=== PATIENT | male | born 1955 | race Caucasian/White ===

== ENCOUNTER 2023-08-17 13:50 | Outpatient (RCR) | payer MEDICARE, OTHER, SELFPAY | END 2023-08-17 23:59 | disposition home or self-care (01) | LOC: RPT 13:50 | PROVIDERS: ATTENDING PHYSICIAN Orthopaedic Surgery; FAMILY PHYSICIAN Internal Medicine | DX: Z47.1 Aftercare following joint replacement surgery (principal); Z96.651 Presence of right artificial knee joint; Z96.652 Presence of left artificial knee joint; Z73.6 Limitation of activities due to disability | CPT/HCPCS: 97010; 97110 ==

== ENCOUNTER 2023-10-04 11:18 | Outpatient (RCR) | payer MEDICARE, OTHER, SELFPAY | END 2023-10-04 23:59 | disposition home or self-care (01) | LOC: RPT 11:18 | PROVIDERS: ATTENDING PHYSICIAN Orthopaedic Surgery; FAMILY PHYSICIAN Internal Medicine | DX: Z47.1 Aftercare following joint replacement surgery (principal); Z73.6 Limitation of activities due to disability; R26.2 Difficulty in walking, not elsewhere classified; M62.81 Muscle weakness (generalized); Z96.653 Presence of artificial knee joint, bilateral | CPT/HCPCS: 97010; 97110; 97112 ==

== ENCOUNTER → 2023-12-16 13:20 | Outpatient (REF) | payer MEDICARE, OTHER, SELFPAY ==
[2023-12-16 13:51] LABS: % Basophils 0.5 % (0-2); % Eosinophils 2.7 % (0-6); % Immature Granulocytes 0.3 % (0-0.5); % Lymphocytes 20.2 % (20.5-51.1); % Monocytes 6.5 % (1.7-9.3); % Neutrophils 69.8 % (42.2-75.2); Absolute Eosinophils 0.2 10^3/uL (0-0.7); Absolute Lymphocytes 1.5 10^3/uL (1.2-3.4); Absolute Monocytes 0.5 10^3/uL (0.1-0.6); Absolute Neutrophils 5.3 10^3/uL (1.4-6.5); Hemoglobin 14.5 g/dL (13.0-18.0); Mean Corp Hgb Conc. 33.7 g/dL (33.0-37.0); Mean Corpuscular Volume 91.9 fL (80.0-94.0); Mean Platelet Volume 9.4 fL (7.4-10.4); Nucleated Red Blood Cells % 0 % (-); Platelet Count 212 10^3/uL (130-400); Red Blood Cell Count 4.68 10^6/uL (4.70-6.10); Red Cell Dist. Width 13.2 % (11.5-14.5); White Blood Cell Count 7.5 10^3/uL (4.8-10.8)
[2023-12-16 14:08] LABS: Urine Albumin Negative (Neg - Trace); Urine Bilirubin Negative (Negative); Urine Character Clear (Clear); Urine Color Yellow; Urine Glucose Negative (Negative); Urine Ketone Negative (Negative); Urine Leukocyte Negative (Negative); Urine Nitrite Negative (Negative); Urine Occult Blood 4+ (Negative); Urine Urobilinogen Negative (Neg - 1+)
[2023-12-16 14:21] LABS: ALT (SGPT) 31 U/L (0-50); AST (SGOT) 27 U/L (17-59); Albumin 4.8 g/dl (3.5-5.0); Alkaline Phosphatase 100 U/L (38-126); Blood Urea Nitrogen 26 mg/dl (9-20); Carbon Dioxide 23 mmol/L (22-30); Chloride 105 mmol/L (98-107); Glucose 97 mg/dl (70-99); HDL Cholesterol 56 mg/dl; LDL Cholesterol, Calculated 81 mg/dl; Potassium 4.6 mmol/L (3.5-5.1); Sodium 141 mmol/L (135-145); Total Cholesterol 174 mg/dl (50-199); Total Protein 7.9 g/dl (6.3-8.2); Triglyceride 188 mg/dl (10-149); Very Low Density Lipoprotein 37 mg/dl (0-30); eGFR > 60.00
[2023-12-16 14:28] LABS: NT-proBNP 108 pg/ml
[2023-12-16 14:32] LABS: Urine Squamous Cell 16-20 /LPF (Few)
[2023-12-16 14:33] LABS: Urine Bacteria Few (Negative)
[2023-12-16 14:40] LABS: Vitamin D, 25-OH*** 26.1 ng/mL (30-80)
[2023-12-16 14:54] LABS: PSA, Total - Screen 0.21 ng/ml (0.0-4.0); TSH Reflex To Free T4 1.34 uIU/ml (0.47-4.68)
[2023-12-16 17:39] LABS: Urine Albumin Negative (Neg - Trace); Urine Bilirubin Negative (Negative); Urine Character Clear (Clear); Urine Color Yellow; Urine Glucose Negative (Negative); Urine Ketone Negative (Negative); Urine Leukocyte Negative (Negative); Urine Nitrite Negative (Negative); Urine Occult Blood 3+ (Negative); Urine Urobilinogen Negative (Neg - 1+)
[2023-12-16 20:07] LABS: Urine Bacteria Few (Negative); Urine Red Blood Cell 16-20 /HPF (0-2); Urine Squamous Cell 16-20 /LPF (Few)
== END ==
LOC: REG 13:20
PROVIDERS: ATTENDING PHYSICIAN Nurse Practitioner Family
DX: R06.09 Other forms of dyspnea (principal); Z68.39 Body mass index [BMI] 39.0-39.9, adult; E78.2 Mixed hyperlipidemia; I10 Essential (primary) hypertension; C43.59 Malignant melanoma of other part of trunk; F41.1 Generalized anxiety disorder; Z12.5 Encounter for screening for malignant neoplasm of prostate; Z12.11 Encounter for screening for malignant neoplasm of colon; E56.9 Vitamin deficiency, unspecified; R31.9 Hematuria, unspecified
CPT/HCPCS: 36415; 71046; 80053; 80061; 81003; 81015; 82306; 83880; 84443; 85025; 87086; 93306; G0103

== ENCOUNTER → 2024-01-13 11:36 | Outpatient (REF) | payer MEDICARE, OTHER, SELFPAY | LOC: HWRAD 11:36 | PROVIDERS: ATTENDING PHYSICIAN Nurse Practitioner Family; FAMILY PHYSICIAN Internal Medicine | DX: R31.9 Hematuria, unspecified (principal) | CPT/HCPCS: 76770 ==

== ENCOUNTER → 2024-02-17 12:24 | Outpatient (REF) | payer MEDICARE, OTHER, SELFPAY | LOC: RAD 12:24 | PROVIDERS: ATTENDING PHYSICIAN Surgery; FAMILY PHYSICIAN Internal Medicine | DX: D49.4 Neoplasm of unspecified behavior of bladder (principal) | CPT/HCPCS: 74178; Q9967 ==

== ENCOUNTER 2024-02-18 16:52 | Inpatient (IN) | payer MEDICARE, OTHER, SELFPAY ==
[2024-02-18] VITALS (8 sets, daily range): BP systolic 98–171; BP diastolic 68–104
--- NOTE | 2024-02-18 13:07 | ED.GENMED ---
History of Present Illness
General
Chief Complaint: Urinary Symptoms
Source: patient
Exam Limitations: none
Time Seen by Provider: 02/18/24 12:48
Travel History
Have you had any contact with someone who has COVID-19?: No
Do you have any symptoms of coronavirus? Fever > 100 degrees, chills, cough, shortness of breath, sore throat, loss of taste or smell, muscle aches, or headache?: No
History of Present Illness
History of Present Illness:
68-year-old male presents in referral from urology. Patient has been having hematuria. He had a catheter placed in the urology office yesterday as well as a CT scan. There is burgundy colored urine in the catheter yesterday tumors were noted in
the bladder. He presents today with inability to urinate through the catheter starting last evening. He notes discomfort and distention to the lower abdomen. He denies a fever. He notes significant pain. He is not anticoagulated. No other
complaints at this time
Past History
Past History
ED Past Medical History: HTN, Hypercholesterolemia and Other (kidney stones, DDD in cervical and lumbar)
ED Past Surgical History: Urological (lithotripsy) and Other (partial colectomy)
Social History
Tobacco: Non-smoker
Alcohol: Occasional
Drug: None
Personal:
Living: with family
Employment: Employed
Family History
Family History: Other (Noncontributory)
Phy Exam
Physical Exam
Physical Exam:
General: Uncomfortable appearing male no acute respiratory distress
HEENT: Normocephalic atraumatic
Heart: Regular rate and rhythm no murmurs
Lungs: Clear no wheeze
Abdomen soft slightly distended to lower abdomen tender no guarding or rebound. Catheter bag without any urine
Extremities: No cyanosis or edema
Course
Orders/Labs/Results
Orders:
Orders
02/18/24 13:04
HYDROmorphone [Dilaudid] 0.5 mg IV NOW STA
02/18/24 13:06
CBI- Treatment PRN
Solution: saline
02/18/24 13:38
Complete Blood Count/With Diff Urgent
Comprehensive Metabolic Panel Urgent
PTT Urgent
Prothrombin Time Urgent
02/18/24 14:16
Ondansetron Injectable [Zofran] 4 mg IV NOW STA
Abnormal Lab Results
02/18/24
13:38
WBC 11.4 H 10^3/uL
(4.8-10.8)
RBC 4.59 L 10^6/uL
(4.70-6.10)
MCH 31.8 H pg
(27.0-31.0)
Absolute Neuts (auto) 9.7 H 10^3/uL
(1.4-6.5)
Neutrophils % 84.6 H %
(42.2-75.2)
Lymphocytes % 10.2 L %
(20.5-51.1)
Carbon Dioxide 18 L mmol/L
(22-30)
Glucose 112 H mg/dl
(70-99)
02/18/24 13:38
02/18/24 13:38
Vital Signs
Initial and Last Documented VS:
Initial Vital Signs
Temp Pulse Resp BP Pulse Ox
97.9 F 108 16 107/79 97
02/18/24 11:44 02/18/24 11:44 02/18/24 11:44 02/18/24 11:44 02/18/24 11:44
Last Documented Vital Signs
Temp Pulse Resp BP Pulse Ox
97.9 F 74 16 115/82 94
02/18/24 11:44 02/18/24 14:00 02/18/24 11:44 02/18/24 13:47 02/18/24 14:00
MDM/Problems Addressed
Differential Diagnosis Includes:
Dysuria abdominal discomfort abdominal distention. Question possible urinary retention secondary to clot versus infectious.
Recent CT scan demonstrated tumors in the bladder.
Discussed with urology prior to entering the patient's room. Urology recommending exchanging catheter for 24 [place] Cabrales for clot retention. Bladder irrigation to be started. Pain medicine ordered.
*Critical Care Note
Total Time (30-74mins, 75-104mins- exclusive of procedures): Not Applicable
Update Note
Update Note:
Three-way catheter placed by nursing and CBI started. Patient still with dark urine. Discussed findings with urology again. Will keep in hospital overnight for CBI and further observation. Urology to consult admit to medicine
ED Attending Note
-
Portions of this chart may have been created with voice recognition software.� Occasional wrong word or��sound alike� substitutions may have occurred due to the inherent limitations of voice recognition software.
Discharge Plan
Departure
Patient Disposition: Admit
Date of Disposition: 02/18/24
Time of Disposition: 15:28
Admit to: Med/Surg
Presentation/result/management discussed w/ accepting MD/DO: Hospitalist
Discharge Problem:
Hematuria
Prescriptions:
No Action
atorvastatin 10 MG tablet
10 mg PO DAILY
loratadine-pseudoephedrine 240 MG/10 MG tablet extended release 24 hr
1 tab PO DAILY
escitalopram oxalate 10 mg Tablet
10 mg PO DAILY
meloxicam
1 tab PO DAILYPRN PRN (Reason: knee pain)
Patient Comments:
pt does not know mg
potassium citrate
1 tab PO TID
oxycodone-acetaminophen [Percocet] 5-325 mg Tablet
1 tab PO Q4HPRN PRN (Reason: pain) Qty: 7 0RF
tamsulosin [Flomax] 0.4 mg Capsule
0.4 mg PO DAILY 7 Days Qty: 7 0RF
diclofenac sodium 75 mg tablet,delayed release (DR/EC)
75 mg PO BID Qty: 10 0RF
Referrals:
Selwyn Arenas DO [Family Provider] -
Interventions
Interventions:
*Risk Screen - Suicide Last Done: 02/18/24 12:22
*General Assessment Last Done: 02/18/24 12:22
*Neglect/Abuse Screening Last Done: 02/18/24 12:22
*ED COVID-19 Vaccine History Last Done: 02/18/24 11:44
ED-Male Genitourinary Assessment Last Done: 02/18/24 12:21
Discharge Date and Time
Print Language: WOLOF
[2024-02-18] MEDS: DILAUDID 0.5 MG IV (13:42)
[2024-02-18 13:48] LABS: % Basophils 0.3 % (0-2); % Eosinophils 0.1 % (0-6); % Immature Granulocytes 0.4 % (0-0.5); % Lymphocytes 10.2 % (20.5-51.1); % Monocytes 4.4 % (1.7-9.3); % Neutrophils 84.6 % (42.2-75.2); Absolute Lymphocytes 1.2 10^3/uL (1.2-3.4); Absolute Monocytes 0.5 10^3/uL (0.1-0.6); Absolute Neutrophils 9.7 10^3/uL (1.4-6.5); Hematocrit 40.8 % (39.0-52.0); Hemoglobin 14.6 g/dL (13.0-18.0); Mean Corp Hgb Conc. 35.8 g/dL (33.0-37.0); Mean Corpuscular Hgb 31.8 pg (27.0-31.0); Mean Corpuscular Volume 88.9 fL (80.0-94.0); Mean Platelet Volume 9.8 fL (7.4-10.4); Nucleated Red Blood Cells % 0 % (-); Platelet Count 192 10^3/uL (130-400); Red Blood Cell Count 4.59 10^6/uL (4.70-6.10); Red Cell Dist. Width 12.6 % (11.5-14.5); White Blood Cell Count 11.4 10^3/uL (4.8-10.8)
[2024-02-18 13:57] LABS: INR 1.03; PT 13.3 Sec (11.4-14.6)
[2024-02-18 13:58] LABS: APTT 27.8 Sec (23.4-35.0)
[2024-02-18] MEDS: ZOFRAN 4 MG IV (14:19)
[2024-02-18 14:23] LABS: ALT (SGPT) 34 U/L (0-50); AST (SGOT) 33 U/L (17-59); Albumin 4.7 g/dl (3.5-5.0); Alkaline Phosphatase 101 U/L (38-126); Blood Urea Nitrogen 20 mg/dl (9-20); Calcium 10.1 mg/dl (8.4-10.2); Carbon Dioxide 18 mmol/L (22-30); Chloride 106 mmol/L (98-107); Glucose 112 mg/dl (70-99); Potassium 4.3 mmol/L (3.5-5.1); Sodium 137 mmol/L (135-145); Total Bilirubin 0.9 mg/dl (0.2-1.3); Total Protein 7.6 g/dl (6.3-8.2); eGFR > 60.00
--- NOTE | 2024-02-18 16:35 | HPS.HSE ---
Addendum entered and electronically signed by PEGGY Wooten 02/18/24 17:33:
N.p.o. after midnight for TURBT in a.m.
Addendum entered and electronically signed by Jimi Moore MD 02/18/24 17:05:
I saw and examined the patient.
The ROLLS BAKER's note was reviewed and I agree with the note.
Comment:
68 male past medical history of hypertension hyperlipidemia renal stone degenerative joint disease, who is presenting with hematuria. Patient had Cabrales catheter placement yesterday. Came in with hematuria and was recommended by his primary
urologist to come into the ER. Patient was started on CBI. Denies abd pain.
General: Comfortable and Conversant; No Pain, Fever or Chills
HEENT: NormoCephalic, Anicteric, Moist mucous membranes, PERRLA, [place] Conjunctivae and No Ptosis
Respiratory: Clear; No Wheezes, Rales or Rhonchi
Cardiac: S1/S2 and Regular Rhythm; No Murmur, Rub, Gallop or Peripheral Edema
GI: Soft, Non Distended, Normal Bowel Sounds and Tender (Suprapubic)
Genito-urinary: No costovertebral tender and Cabrales (Cabrales cath present on admission draining strawberry in color with CBI running)
Musculoskeletal: No Clubbing, No Cyanosis and No Edema
Skin: Warm and Dry; No Rash or Jaundice
Neuro: AO x 3, No Motor Deficits, Nonfocal/grossly intact, Cranial Nerves Intact and No Sensory Deficits; No Slurred Speech, Facial Droop or Tremors
Psych: Calm
Impression
Hematuria
Bladder cancer
BPH
Primary hypertension
Hyperlipidemia
Mood disorder
Constipation
Plan
Started on CBI which needs to be continue
Urology evaluation
on cipro with recent instrumentation
NPO PMN in case requires procedure per Urology
Continue home meds
Hold meloxicom
bowle regimen
DVT prophylaxis SCDs in the setting of hematuria.
I spent a total of 78 minutes with the patient or on the floor. More than 50% of this time involved counseling and coordination of care.
Original Note:
Family Physician
-
Family Physician: Selwyn Arenas
Chief Complaint
-
Clot burden via Cabrales catheter prior hematuria
History of Present Illness
68-year-old male with hematuria and clot retention via Cabrales catheter. He was having hematuria had a catheter placed in urology office yesterday 02/17/2024. He has known bladder tumors and is scheduled for upcoming procedure at the end of the month
for removal. He was unable to urinate through the catheter starting last night. He was noted to have clot burden and suprapubic tenderness while in the ER he was started on CBI. He is on ciprofloxacin 500 mg twice daily since cystoscopy on
02/15/2024. He denies any fever, chills, nausea, vomiting, diarrhea, chest pain, palpitations, shortness breath, cough.
He has past medical history bladder tumors, HTN, HLD, DDD cervical, lumbar, renal calculi, partial colectomy due to perforated bowel, Hx diverticulitis, malignant melanoma with removal 3 areas to back, 9 Mohs procedures follows with [facility]
Medical History
Past Medical History
Past Medical History: Reports Other
Additional Past Medical History:
bladder tumors, HTN, HLD, DDD cervical, lumbar, renal calculi, partial colectomy due to perforated bowel, Hx diverticulitis
Past Surgical History: Reports Other
Additional Past Surgical History:
Spinal fusion 2002 C4-C6
Lithotripsy/renal calculi 2001, 2002
Sinus surgery
Perforated colon, colostomy November 2005, reversal February 2006
Malignant CA removal 2021
Social History
Tobacco: Non-smoker
Alcohol: Occasional
Drug: None
Living: With Family
Employment: Retired
Family History
Family History: Not pertinent
Allergies / Home Medications
Allergies reflects when Allergies were last updated in [employer].
Home Medications with original date entered in [employer]
Allergy/Medication List:
Allergies
Allergy/AdvReac Type Severity Reaction Status Date / Time
No Known Allergies Allergy Verified 02/18/24 11:47
Home Medications
escitalopram oxalate 10 mg tablet 10 mg PO DAILY 01/24/23
acetaminophen 325 mg tablet (Tylenol) 650 mg PO Q4HPRN PRN mild pain 02/18/24
ascorbic acid (vitamin C) 500 mg tablet (Vitamin C) 500 mg PO DAILY 02/18/24
atorvastatin 40 mg tablet 40 mg PO DAILY 02/18/24
cholecalciferol (vitamin D3) 25 mcg (1,000 unit) tablet (Vitamin D3) 25 mcg PO DAILY 02/18/24
ciprofloxacin HCl 500 mg tablet 500 mg PO BID 02/18/24
meloxicam 15 mg tablet 15 mg PO DAILY 02/18/24
potassium citrate 10 mEq (1,080 mg) tablet,extended release 10 meq PO BID 02/18/24
tamsulosin 0.4 mg capsule (Flomax) 0.4 mg PO HS 02/18/24
Review of Systems
-
History Source: Patient
A 12 point ROS was completed and negative except as noted: Yes
Constitutional: Denies Fever or Fatigue
EENT: Denies Sore Throat or Runny Nose
Respiratory: Denies Cough or Trouble Breathing
Cardiac: Denies Chest Pain, Diaphoresis, Palpitations or Syncope
Abdomen/GI: Reports Abdominal Pain (Suprapubic) and Nausea; Denies Vomiting, Diarrhea, Constipated or Bloody Stools
: Reports Cabrales (Hematuria)
Musculoskeletal: Denies Joint Pain or Edema
Skin: Denies Itching or Rash
Neurological: Denies Dizzy, Headache or Weakness
Endocrine: Reports No Symptoms
Hematologic/Lymphatic: Reports No Symptoms
Psych: Reports Calm
Physical Exam
Vital Signs
Vital Signs
Temp Pulse Resp BP Pulse Ox
97.9 F 74 16 115/82 94
02/18/24 11:44 02/18/24 14:00 02/18/24 11:44 02/18/24 13:47 02/18/24 14:00
Physical Exam
General: Comfortable and Conversant; No Pain, Fever or Chills
HEENT: NormoCephalic, Anicteric, Moist mucous membranes, PERRLA, [place] Conjunctivae and No Ptosis
Respiratory: Clear; No Wheezes, Rales or Rhonchi
Cardiac: S1/S2 and Regular Rhythm; No Murmur, Rub, Gallop or Peripheral Edema
Breast: Deferred by me
GI: Soft, Non Distended, Normal Bowel Sounds and Tender (Suprapubic)
Rectal: Deferred by Provider
Genito-urinary: No costovertebral tender and Cabrales (Cabrales cath present on admission draining strawberry in color with CBI running)
Musculoskeletal: No Clubbing, No Cyanosis and No Edema
Skin: Warm and Dry; No Rash or Jaundice
Neuro: AO x 3, No Motor Deficits, Nonfocal/grossly intact, Cranial Nerves Intact and No Sensory Deficits; No Slurred Speech, Facial Droop or Tremors
Psych: Calm
Laboratory Results
-
02/18/24 13:38
02/18/24 13:38
Laboratory Results
PT 13.3 Sec (11.4-14.6) 02/18/24 13:38
INR 1.03 02/18/24 13:38
APTT 27.8 Sec (23.4-35.0) 02/18/24 13:38
Total Bilirubin 0.9 mg/dl (0.2-1.3) 02/18/24 13:38
AST 33 U/L (17-59) 02/18/24 13:38
ALT 34 U/L (0-50) 02/18/24 13:38
Alkaline Phosphatase 101 U/L (38-126) 02/18/24 13:38
Data Reviewed
-
Lab Data: Labs Reviewed by me
Impression/Plan
-
Impression/plan:
Admit to MedSurg
#Acute hematuria with Clot retention post urinary catheter placement
#Known BLADDER TUMORS is due for elective procedure later this month
-Consult Dr. Barrera
-CBI
-Continue Flomax 0.4 mg at bedtime
-Regular diet
-Follow CBC
#Malignant melanoma with removal 3 areas to back, 9 Mohs procedures follows with [facility]
#HTN�benign
#HLD
-Continue atorvastatin 40 mg daily
#DDD cervical lumbar
#Osteoarthritis
-Continue meloxicam
#Hx renal calculi
-Continue potassium citrate
#Partial colectomy 2/2 perforated colon with colostomy November 2005 and reversal February 2006
#Hx diverticulitis
#Anxiety
-Continue Lexapro
DVT prophylaxis
SCDs
Full code
--- NOTE | 2024-02-18 16:56 | W.PN.UPDATE ---
Update Note
Progress Note Update
Newly diagnosed bladder tumors noted on diagnostic flexible cysto in office 02/14 => tentatively scheduled for blue light TURBT in ~2-3 weeks, preop visit in office 02/23.
Noted to have urinary retention w/n 36-48 hrs of cystoscopy in addition to burgundy-colored hematuria w/ clots.
20Fr Cabrales catheter placed in office by me on 02/16 - hand irrigated to light red w/o clot return noted, >700 cc output noted.
Due to persistent and significant hematuria w/o clearing noted this AM, patient directed to ER for 3-way catheter exchange and CBI.
CT Urogram 02/16 reviewed w/ patient => known bladder tumors throughout bladder, Cabrales catheter in place.
- Admit to Medicine
- Continue CBI o/n - wean as tolerated
- NPO@MN in case no improvement noted o/n
- Continue tamsulosin
- CBC in AM
- Urology will assess catheter/drainage in AM
D/w ER.
D/w Hospital Medicine
D/w patient.
--- NOTE | 2024-02-18 17:06 | W.PN.UPDATE ---
Update Note
Progress Note Update
for billing purpose.
--- NOTE | 2024-02-18 18:10 | PTCARENOTE ---
Patient received to room 437-01 from ED with CBI running. Patient in bed with call davalos in reach. Patient oriented to room. Patient verbalizes he ordered dinner tray.
--- NOTE | 2024-02-18 20:00 | PTCARENOTE ---
Pt. admitted through E.D., AAO x 3, vs stable, CBI infusing with punch colored urine, call davalos within reach.
[2024-02-18] MEDS: CIPRO 500 MG PO (20:32)
[2024-02-18] MEDS: SENOKOT-S 1 TABLET PO (20:33)
[2024-02-18] MEDS: UROCIT-K 10 MEQ PO (20:33)
[2024-02-18] MEDS: FLOMAX 0.400000000000000022 MG PO (20:33)
[2024-02-18] MEDS: TYLENOL 650 MG PO (20:34)
[2024-02-19] VITALS (18 sets, daily range): BP systolic 103–155; BP diastolic 57–120
[2024-02-19] MEDS: TYLENOL 650 MG PO (04:01)
--- NOTE | 2024-02-19 04:06 | PTCARENOTE ---
First set of preop wipes done, gown changed.
[2024-02-19 06:17] LABS: % Basophils 0.5 % (0-2); % Eosinophils 1.1 % (0-6); % Immature Granulocytes 0.2 % (0-0.5); % Lymphocytes 17.8 % (20.5-51.1); % Monocytes 7.6 % (1.7-9.3); % Neutrophils 72.8 % (42.2-75.2); Absolute Basophils 0.1 10^3/uL (0-0.2); Absolute Eosinophils 0.1 10^3/uL (0-0.7); Absolute Lymphocytes 1.8 10^3/uL (1.2-3.4); Absolute Monocytes 0.8 10^3/uL (0.1-0.6); Absolute Neutrophils 7.5 10^3/uL (1.4-6.5); Hematocrit 38.8 % (39.0-52.0); Hemoglobin 12.9 g/dL (13.0-18.0); Mean Corp Hgb Conc. 33.2 g/dL (33.0-37.0); Mean Corpuscular Hgb 31.1 pg (27.0-31.0); Mean Corpuscular Volume 93.5 fL (80.0-94.0); Mean Platelet Volume 10.1 fL (7.4-10.4); Nucleated Red Blood Cells % 0 % (-); Platelet Count 163 10^3/uL (130-400); Red Blood Cell Count 4.15 10^6/uL (4.70-6.10); Red Cell Dist. Width 12.5 % (11.5-14.5); White Blood Cell Count 10.3 10^3/uL (4.8-10.8)
[2024-02-19 06:31] LABS: Blood Urea Nitrogen 21 mg/dl (9-20); Calcium 9.3 mg/dl (8.4-10.2); Carbon Dioxide 23 mmol/L (22-30); Chloride 105 mmol/L (98-107); Glucose 96 mg/dl (70-99); Sodium 137 mmol/L (135-145); eGFR > 60.00
--- NOTE | 2024-02-19 07:50 | W.PN.URO.CBU ---
Today's Communication / Plan
-
Maintain NPO
To OR for TURBT
IV Ancef 2g crane ladle person to OR
Plan for CBI post-op w/ observation o/n
Discussed plan of care w/ patient and spouse.
Discussed plan of care w/ RN.
Assessment / Plan
-
Gross hematuria w/ clot retention
Bladder tumors suspicious for UCC
WBC WNL
H/H WNL (slight drift given recent bleeding)
Cr WNL
Given severity of hematuria from urinary retention and post-instrumentation (s/p outpatient diagnostic cysto 02/14), discussed role of urgent TURBT to resect known bladder tumors.
Reviewed likelihood of requiring 2nd look blue light TURBT in 6 weeks to confirm complete resection pending initial pathology.
Plan for intravesical gemcitabine at time of 2nd look procedure given degree of inflammatory changes expected at this time.
Discussed risks, benefits, alternatives, and potential complications of TURBT including but not limited to urosepsis, bleeding, ureteral/bladder injury, need for additional procedures or surgeries.
Discussed at length w/ patient and spouse (Radha) this AM - agreeable to proceed and appreciative of comprehensive care.
Diagnosis
-
Date of Service: February 19, 2024
-
Patient Diagnosis:
Gross hematuria w/ clot retention
Bladder tumors suspicious for UCC
Subjective
-
Denies pain.
Notes mild upper abdominal discomfort and soreness x2-3 weeks.
Urine light red to pink in tubing on low rate CBI.
No clots.
Objective
-
Vital Signs
Temp Pulse Resp BP Pulse Ox
97.8 F 78 16 131/74 97
02/19/24 06:15 02/19/24 06:15 02/19/24 06:15 02/19/24 06:15 02/19/24 06:15
Intake and Output
02/18/24 02/19/24 02/20/24
06:59 06:59 06:59
Intake Total 120 / 120
Output Total 5550 / 5550 3350 / 3350
Balance -5430 / -5430 -3350 / -3350
Intake:
Oral fluids 120 / 120
Output:
Urine, Cabrales 3350 / 3350
True Urine Output from CBI 5550 / 5550
Laboratory Results
02/19/24 04:49
02/19/24 04:49
Physical Exam
-
General - well developed, well nourished, no acute distress
Abdomen - soft, non-tender, no CVAT
Genitalia - normal, 3-way catheter in place
Skin - warm & dry with no rash
Neuro - AOx3, no motor deficits
Extremities - no clubbing, no cyanosis, no edema
Care Review
Data Reviewed
Discussed with: Nursing and Family
CT Scan: Report Pers Reviewed and Image Pers Reviewed
[2024-02-19] MEDS: MIRALAX PO (08:40)
[2024-02-19] MEDS: MOBIC 15 MG PO (08:46)
[2024-02-19] MEDS: CIPRO 500 MG PO ×2 (08:46→20:30)
[2024-02-19] MEDS: VITAMIN C 500 MG PO (08:47)
[2024-02-19] MEDS: UROCIT-K 10 MEQ PO ×2 (08:47→20:30)
[2024-02-19] MEDS: SENOKOT-S 1 TABLET PO ×2 (08:47→20:30)
[2024-02-19] MEDS: VITAMIN D3 (cholecalciferol) 25 MCG PO (08:47)
[2024-02-19] MEDS: LIPITOR 40 MG PO (08:47)
[2024-02-19] MEDS: LEXAPRO 10 MG PO (08:47)
--- NOTE | 2024-02-19 11:34 | PTCARENOTE ---
Report called to OR , patient and transported with hospital staff. CBI running without difficulty, light punch colored. Draining without difficulty.
--- NOTE | 2024-02-19 13:11 | W.IMMPOSTOP ---
Surgical Immed Post Op Note
-
Primary Surgeon: Bruce
Pre-op Diagnosis:
1. Hematuria with clot retention
2. Multifocal papillary bladder tumors consistent with bladder cancer
Post-op Diagnosis: Same
Procedure Performed:
1. Cystoscopy and clot evacuation
2. TURBT (large, >5.5 cm total volume)
3. TURP (partial resection/fulguration of proximal prostatic urethra)
Anesthesia Type: GETA
Specimen / Cultures: Bladder tumors/None
Estimated Blood Loss: 5 cc (150 cc old clot evacuated)
Drains: 22Fr 3-way catheter (30 cc in balloon)
Complications: None
Operative Findings: multifocal papillary bladder tumors throughout vesicoprostatic junction, lateral bladder horton adjacent to prostate, bladder base, and posterior bladder wall - resected/fulgurated w/ loop. Excellent hemostasis in no flow, low
pressure state.
Post-op findings and plan d/w spouse (Radha).
Plan for formal blue light cystoscopy/TURBT in 6 weeks after bladder healing for re-staging.
[2024-02-19] MEDS: OFIRMEV 100 IV (13:49)
[2024-02-19] MEDS: SUBLIMAZE 50 MCG IV (13:56)
[2024-02-19] MEDS: DETROL LA 4 MG PO (14:17)
--- NOTE | 2024-02-19 15:48 | W.PN.HOSP.TC ---
Today's Communication/Plan
-
Continue CBI
Monitor hemoglobin
Assessment / Plan
Assessment / Plan
Impression:
68 years old with past medical history of hypertension, dyslipidemia, renal stone, DJD who presents with gross hematuria. Recent diagnosis of bladder tumor and initiation with hematuria as outpatient, Cabrales catheter placed as outpatient day prior
to admission presents with gross hematuria and clot retention.
Gross hematuria.
Recently diagnosed bladder cancer
BPH.
Primary hypertension
Dyslipidemia
Mood disorder
Plan:
CT urography:
Filling defects in the bladder probably hemorrhagic products. An underlying mass cannot be excluded. Direct visualization recommended. Prior ultrasound examination suggests a mass with associated calcifications posteriorly in the bladder.
Mild right hydroureter ureter secondary to either distal right ureteral stricture or obstruction at the right UVJ. Improved.
Several tiny bladder stones versus more likely a calcified bladder mass.. Progressed. Direct visualization recommended if not previously performed
Bowel containing ventral hernia as described above. Stable.
Gallstones. Stable
Pancreatic fatty infiltration. Stable
Few too small to characterize hypodense left renal lesions likely benign cysts. Small simple right renal cyst.
Diverticulosis. Stable
Moderate fecal material throughout the colon. Progressed
Status post cystoscopy with clot evacuation, TURBT, TURP.
Continue CBI
Monitor hemoglobin, currently stable.
Anticipated Discharge: 24 - 48 hours
Subjective/Interval History
-
Date of Service: February 19, 2024
Objective Data
-
Labs:
Laboratory Results
02/19/24
04:49
WBC 10.3
Hgb 12.9 L
Hct 38.8 L
Plt Count 163
Sodium 137
Potassium 4.0
Chloride 105
Carbon Dioxide 23
BUN 21 H
Creatinine 1.2
Glucose 96
Calcium 9.3
Vital Signs:
Vital Signs
Temp Pulse Resp BP Pulse Ox
98.2 F 78 18 140/68 96
02/19/24 15:30 02/19/24 15:30 02/19/24 15:30 02/19/24 15:30 02/19/24 15:30
I&O
02/18/24 02/19/24 02/20/24
06:59 06:59 06:59
Intake Total 120 / 120 350 / 350
Output Total 5550 / 5550 1250 / 1250
Balance -5430 / -5430 -900 / -900
Physical Exam
-
General: Well Developed and No Apparent Distress
HEENT: Normocephalic, Atraumatic and Moist Mucous Membranes
Respiratory: Clear to Auscultation
Cardiac: Regular Rhythm and S1/S2; Negative Murmur, Rub or Gallop
GI: Soft, Nontender, Nondistended and Normal Bowel Sounds; Negative Organomegaly
Rectal: Deferred by Provider
Genito-urinary: Cabrales (CBI)
Musculoskeletal: No Clubbing, No Cyanosis and No Edema
Skin: Negative Rash
Neuro: Nonfocal/Grossly Intact
[2024-02-19] MEDS: ROXICODONE 5 MG PO ×2 (16:38→21:59)
[2024-02-19] MEDS: FLOMAX 0.400000000000000022 MG PO (21:57)
[2024-02-20 03:30] VITALS: BP 127/72
[2024-02-20 05:52] LABS: % Basophils 0.2 % (0-2); % Eosinophils 0.2 % (0-6); % Immature Granulocytes 0.3 % (0-0.5); % Lymphocytes 13.2 % (20.5-51.1); % Monocytes 7.9 % (1.7-9.3); % Neutrophils 78.2 % (42.2-75.2); Absolute Lymphocytes 1.2 10^3/uL (1.2-3.4); Absolute Monocytes 0.7 10^3/uL (0.1-0.6); Absolute Neutrophils 7.2 10^3/uL (1.4-6.5); Hematocrit 36.2 % (39.0-52.0); Hemoglobin 12.5 g/dL (13.0-18.0); Mean Corp Hgb Conc. 34.5 g/dL (33.0-37.0); Mean Corpuscular Hgb 31.5 pg (27.0-31.0); Mean Corpuscular Volume 91.2 fL (80.0-94.0); Mean Platelet Volume 10.1 fL (7.4-10.4); Nucleated Red Blood Cells % 0 % (-); Platelet Count 175 10^3/uL (130-400); Red Blood Cell Count 3.97 10^6/uL (4.70-6.10); Red Cell Dist. Width 12.4 % (11.5-14.5); White Blood Cell Count 9.2 10^3/uL (4.8-10.8)
[2024-02-20 06:20] LABS: Blood Urea Nitrogen 23 mg/dl (9-20); Calcium 9.3 mg/dl (8.4-10.2); Carbon Dioxide 23 mmol/L (22-30); Chloride 103 mmol/L (98-107); Glucose 137 mg/dl (70-99); Potassium 4.1 mmol/L (3.5-5.1); Sodium 137 mmol/L (135-145); eGFR > 60.00
[2024-02-20 07:48] VITALS: BP 131/77
[2024-02-20] MEDS: LIPITOR 40 MG PO (07:58)
[2024-02-20] MEDS: MOBIC 15 MG PO (07:58)
[2024-02-20] MEDS: UROCIT-K 10 MEQ PO (07:58)
[2024-02-20] MEDS: LEXAPRO 10 MG PO (07:58)
[2024-02-20] MEDS: CIPRO 500 MG PO (07:58)
[2024-02-20] MEDS: VITAMIN D3 (cholecalciferol) 25 MCG PO (07:58)
[2024-02-20] MEDS: VITAMIN C 500 MG PO (07:58)
[2024-02-20] MEDS: SENOKOT-S 1 TABLET PO (07:58)
[2024-02-20] MEDS: MIRALAX 17 GRAMS PO (07:59)
[2024-02-20] MEDS: ROXICODONE 5 MG PO (08:30)
--- NOTE | 2024-02-20 08:46 | W.PN.URO.CBU ---
Today's Communication / Plan
-
D/c Cabrales catheter
TOV this AM
OK to d/c home from urologic perspective
F/U to review pathology will be scheduled in 2 weeks
D/w patient
D/w spouse (Radha)
D/w RN
Assessment / Plan
-
Gross hematuria w/ clot retention
Bladder tumors suspicious for UCC
WBC WNL
H/H WNL (stable post-op)
Cr WNL
02/18: s/p cysto/clot evac/TURBT/TURP
Given severity of hematuria from urinary retention and post-instrumentation (s/p outpatient diagnostic cysto 02/14), discussed role of urgent TURBT to resect known bladder tumors.
Reviewed likelihood of requiring 2nd look blue light TURBT in 6 weeks to confirm complete resection pending initial pathology.
Plan for intravesical gemcitabine at time of 2nd look procedure given degree of inflammatory changes expected at this time.
Discussed risks, benefits, alternatives, and potential complications of TURBT including but not limited to urosepsis, bleeding, ureteral/bladder injury, need for additional procedures or surgeries.
Discussed at length w/ patient and spouse (Radha) this AM - agreeable to proceed and appreciative of comprehensive care.
Diagnosis
-
Date of Service: February 20, 2024
-
Patient Diagnosis:
Post Op Day:
Patient Diagnosis:
Gross hematuria w/ clot retention
Bladder tumors suspicious for UCC
Subjective
-
Feels great.
Tolerating diet.
Headache from PACU resolved.
Urine crystal clear w/o clots on low drip CBI.
Objective
-
Vital Signs
Temp Pulse Resp BP Pulse Ox
97.8 F 78 17 131/77 97
02/20/24 07:48 02/20/24 07:48 06/16/24 07:48 02/20/24 07:48 02/20/24 07:48
Intake and Output
02/19/24 02/20/24 02/21/24
06:59 06:59 06:59
Intake Total 120 / 120 1420 / 1420
Output Total 5550 / 5550 900 / 900 1999
Balance -5430 / -5430 520 / 520 -1999
Intake:
Oral fluids 120 / 120 1070 / 1070
IV fluids (Total) 300 / 300
Normosasl 300 / 300
IV piggybacks 50 / 50
Output:
True Urine Output from CBI 5550 / 5550 900 / 900 1999
Laboratory Results
02/20/24 04:50
02/20/24 04:49
Physical Exam
-
General - well developed, well nourished, no acute distress
Abdomen - soft, non-tender, positive bowel sounds, no CVAT
Genitalia - normal, 22F 3-way w/ clear UOP
Skin - warm & dry with no rash
Neuro - AOx3, no motor deficits
Extremities - no clubbing, no cyanosis, no edema
Care Review
Data Reviewed
Discussed with: Hospitalist, Nursing and Family
--- NOTE | 2024-02-20 08:57 | W.DS.TRANS ---
DC Summary - [employer]
-
Discharge Instructions:
Discharge Diagnosis/Procedures Bladder tumors suspicious for bladder cancer s/p
cysto/clot evacuation/TURBT/TURP
Diet Regular
Activity No strenuous activity
Additional Activity No strenuous activity, heavy lifting, exercise
x7 days per Dr. Barrera (including soccer
exercises/drills!!!)
Driving Restrictions No driving for 24 hours
Bathing Restrictions None
Blood Work not applicable
Others Tests not applicable
Wound Care not applicable
Instructions:
Stand-Alone Forms:
Changes to Home Medications: Yes
Discharge Medications:
DC Medications w/original date entered in [employer] ([employer])
escitalopram oxalate 10 mg tablet 10 mg PO DAILY Depression 01/24/23
acetaminophen 325 mg tablet (Tylenol) 650 mg PO Q4HPRN PRN mild pain 02/18/24
ascorbic acid (vitamin C) 500 mg tablet (Vitamin C) 500 mg PO DAILY Supplement 02/18/24
atorvastatin 40 mg tablet 40 mg PO DAILY High Cholesterol 02/18/24
cholecalciferol (vitamin D3) 25 mcg (1,000 unit) tablet (Vitamin D3) 25 mcg PO DAILY Supplement 02/18/24
ciprofloxacin HCl 500 mg tablet 500 mg PO BID Infection 02/18/24
meloxicam 15 mg tablet 15 mg PO DAILY Pain 02/18/24
potassium citrate 10 mEq (1,080 mg) tablet,extended release 10 meq PO BID Electrolyte Repletion 02/18/24
tamsulosin 0.4 mg capsule (Flomax) 0.4 mg PO HS Urinary Issue 02/18/24
Home Medication Changes
Hold and resume ASA on 02/24/24
Pending Results: No
[2024-02-20] MEDS: PREVNAR 20 0.5 ML IM (09:09)
--- NOTE | 2024-02-20 10:02 | CM ---
Pt discharged prior to CM meeting with him for assessment
Per chart review, no dc needs noted
== END 2024-02-20 09:50 | disposition home or self-care (01) | DRG 670 ==
LOC: 2 SOUTH 16:52
PROVIDERS: Clinical Nurse Specialist Family Health; Physician Assistant; ADMITTING PHYSICIAN Hospitalist; ATTENDING PHYSICIAN Internal Medicine; CONSULT PHYSICIAN Surgery; EMERGENCY PHYSICIAN Emergency Medicine; FAMILY PHYSICIAN Internal Medicine
PROC: 0TBD8ZZ Excision of Urethra, Via Natural or Artificial Opening Endoscopic (ICD-10-PCS; 2024-02-19)
PROC: 0TBB8ZZ Excision of Bladder, Via Natural or Artificial Opening Endoscopic (ICD-10-PCS; 2024-02-19)
PROC: 0TCB8ZZ Extirpation of Matter from Bladder, Via Natural or Artificial Opening Endoscopic (ICD-10-PCS; 2024-02-19)
PROC: 3E0234Z Introduction of Serum, Toxoid and Vaccine into Muscle, Percutaneous Approach (ICD-10-PCS; 2024-02-20)
DX: C67.9 Malignant neoplasm of bladder, unspecified (principal); R31.0 Gross hematuria; N40.1 Benign prostatic hyperplasia with lower urinary tract symptoms; R33.8 Other retention of urine; I10 Essential (primary) hypertension; E78.00 Pure hypercholesterolemia, unspecified; F39 Unspecified mood [affective] disorder; M19.90 Unspecified osteoarthritis, unspecified site; K59.00 Constipation, unspecified; M50.30 Other cervical disc degeneration, unspecified cervical region; F41.9 Anxiety disorder, unspecified; Z87.442 Personal history of urinary calculi; Z85.820 Personal history of malignant melanoma of skin; Z23 Encounter for immunization
CPT/HCPCS: 88307; 51702; 51798; 74178; 80048; 80053; 85025; 85610; 85730; 96374; 96375; 99284; Q9967

== ENCOUNTER → 2024-04-07 11:59 | Outpatient (REF) | payer MEDICARE, OTHER, SELFPAY ==
[2024-04-07 14:43] LABS: Urine Albumin Negative (Neg - Trace); Urine Bilirubin Negative (Negative); Urine Character Clear (Clear); Urine Color Yellow; Urine Glucose Negative (Negative); Urine Ketone Negative (Negative); Urine Leukocyte Trace (Negative); Urine Nitrite Negative (Negative); Urine Occult Blood 4+ (Negative); Urine Urobilinogen Negative (Neg - 1+)
[2024-04-07 14:52] LABS: Urine Bacteria Few (Negative); Urine Red Blood Cell 30-40 /HPF (0-2)
== END ==
LOC: SDSPAT 11:59
PROVIDERS: ATTENDING PHYSICIAN Surgery; FAMILY PHYSICIAN Internal Medicine
DX: C67.9 Malignant neoplasm of bladder, unspecified (principal)
CPT/HCPCS: 36415; 81003; 81015; 93005

== ENCOUNTER 2024-04-14 06:26 | Day surgery (SDC) | payer MEDICARE, OTHER, SELFPAY ==
[2024-04-07 14:08] VITALS: BMI 39.0
[2024-04-14] VITALS (12 sets, daily range): BP systolic 120–135; BP diastolic 74–88; BMI 39.0
[2024-04-14] MEDS: CYSVIEW KIT 100 MG INTRAVES (13:40)
[2024-04-14] MEDS: DILAUDID 0.25 MG IV (16:17)
[2024-04-14] MEDS: TYLENOL 650 MG PO (17:16)
== END 2024-04-14 17:49 | disposition home or self-care (01) ==
LOC: SDS 06:26
PROVIDERS: ATTENDING PHYSICIAN Surgery
DX: C67.8 Malignant neoplasm of overlapping sites of bladder (principal)
CPT/HCPCS: 52601; 52235; C9738; 88307; A9589; C1713

== ENCOUNTER → 2024-04-20 17:45 | Outpatient (REF) | payer MEDICARE, OTHER, SELFPAY ==
[2024-04-20 18:41] LABS: Urine Albumin 1+ (Neg - Trace); Urine Bilirubin Negative (Negative); Urine Character Clear (Clear); Urine Color Yellow; Urine Glucose Negative (Negative); Urine Ketone Negative (Negative); Urine Leukocyte Trace (Negative); Urine Nitrite Negative (Negative); Urine Occult Blood 4+ (Negative); Urine Urobilinogen Negative (Neg - 1+)
[2024-04-20 18:52] LABS: Urine Bacteria Moderate (Negative); Urine Red Blood Cell 80-90 /HPF (0-2); Urine White Cell 0-2 /HPF (0-5)
== END ==
LOC: CLAB 17:45
PROVIDERS: ATTENDING PHYSICIAN Surgery
DX: N39.0 Urinary tract infection, site not specified (principal)
CPT/HCPCS: 81003; 81015; 87086

== ENCOUNTER 2024-06-16 10:08 | Emergency (ER) | payer MEDICARE, OTHER, SELFPAY ==
[2024-06-16 10:26] VITALS: BP 158/86
[2024-06-16] MEDS: MORPHINE SULFATE 4 MG IV (12:43)
[2024-06-16 13:07] LABS: % Basophils 0.5 % (0-2); % Eosinophils 2.7 % (0-6); % Immature Granulocytes 0.5 % (0-0.5); % Lymphocytes 9.4 % (20.5-51.1); % Monocytes 6.4 % (1.7-9.3); % Neutrophils 80.5 % (42.2-75.2); Absolute Basophils 0.1 10^3/uL (0-0.2); Absolute Eosinophils 0.3 10^3/uL (0-0.7); Absolute Immature Granulocytes 0.1 10^3/uL (0-0.05); Absolute Monocytes 0.7 10^3/uL (0.1-0.6); Absolute Neutrophils 8.8 10^3/uL (1.4-6.5); Hematocrit 39.1 % (39.0-52.0); Hemoglobin 13.5 g/dL (13.0-18.0); Mean Corp Hgb Conc. 34.5 g/dL (33.0-37.0); Mean Corpuscular Hgb 31.5 pg (27.0-31.0); Mean Corpuscular Volume 91.1 fL (80.0-94.0); Mean Platelet Volume 9.9 fL (7.4-10.4); Nucleated Red Blood Cells % 0 % (-); Platelet Count 152 10^3/uL (130-400); Red Blood Cell Count 4.29 10^6/uL (4.70-6.10); Red Cell Dist. Width 12.7 % (11.5-14.5); White Blood Cell Count 10.9 10^3/uL (4.8-10.8)
[2024-06-16 13:09] LABS: Urine Albumin 2+ (Neg - Trace); Urine Bilirubin 1+ (Negative); Urine Character Very Cloudy (Clear); Urine Color Amber; Urine Glucose Negative (Negative); Urine Ketone Negative (Negative); Urine Leukocyte 2+ (Negative); Urine Nitrite Positive (Negative); Urine Occult Blood 4+ (Negative); Urine Urobilinogen 2+ (Neg - 1+)
[2024-06-16 13:26] LABS: Urine Bacteria Few (Negative); Urine Red Blood Cell >100 /HPF (0-2); Urine White Cell 16-20 /HPF (0-5)
[2024-06-16 13:52] LABS: Blood Urea Nitrogen 28 mg/dl (9-20); Carbon Dioxide 20 mmol/L (22-30); Chloride 109 mmol/L (98-107); Glucose 98 mg/dl (70-99); Sodium 142 mmol/L (135-145); eGFR 55.43
--- NOTE | 2024-06-16 14:33 | ED.GENMED ---
History of Present Illness
General
Chief Complaint: Male Genito-Urinary Symptoms
Source: patient and spouse
Time Seen by Provider: 06/16/24 11:13
History of Present Illness
History of Present Illness:
68-year-old male who is status post bladder tumor resection on Wednesday. He had this performed at [facility]. Patient did have resection here in the past as well. The patient presents with lower abdominal discomfort. He feels like he
has to have a bowel movement but cannot. He states he is having severe pain both in his penis and at the abdomen. He did notice blood in the urine. He denies fevers or back pain. The pain is somewhat severe.
Past History
Past History
ED Past Medical History: HTN, Hypercholesterolemia and Other (kidney stones, DDD in cervical and lumbar, bladder cancer, diverticulitis, perforated colon)
ED Past Surgical History: Urological (lithotripsy) and Other (partial colectomy)
Social History
Tobacco: Non-smoker
Alcohol: Occasional
Drug: None
Personal:
Living: with family
Employment: Employed
Family History
Family History: Other (Noncontributory)
Phy Exam
Physical Exam
Physical Exam:
CONSTITUTIONAL Patient alert and oriented to person, place and time. Well-appearing. Vital signs reviewed.
HEAD atraumatic, normocephalic.
EYES eyelids normal to inspection, Pupils equally round and reactive to light, Extraocular muscles intact, Conjunctiva normal, Sclera normal.
NECK normal range of motion, Trachea midline, no jugular venous distention.
RESPIRATORY CHEST No respiratory distress noted, Chest expansion equal, Bilateral breath sounds clear.
CARDIOVASCULAR regular rate and rhythm, Heart sounds normal.
ABDOMEN moderate to severe lower abdominal tenderness with moderate distention. There is a hernia in the midline just below the umbilicus that is reducible on exam.
BACK normal inspection, no obvious deformities
UPPER EXTREMITY range of motion normal, Motor strength normal, no cyanosis, no edema.
LOWER EXTREMITY range of motion normal, Motor strength normal, no cyanosis, no edema.
NEURO Speech normal, No focal motor deficits, [place] coma scale 15, Memory normal, Cranial Nerves intact to screening exam.
SKIN skin warm, dry, and normal in color.
PSYCHIATRIC patient oriented to person place and time, Normal affect.
Course
Orders/Labs/Results
Orders:
Orders
06/16/24 12:17
Lidocaine 2% [Lidocaine Uro-Jet 2%] 2 syringe .ROUTE .STK-MED ONE
06/16/24 12:38
CT Abd/Pel (IV only)-DH only Urgent
Comment:
Reason For Exam: lower abd pain, post-op bladder tumor resection
Morphine Sulfate 4 mg IV NOW STA
06/16/24 12:42
Basic Metabolic Panel Urgent
Complete Blood Count/With Diff Urgent
Urinalysis Reflex To Culture Urgent
Date Specimen was Collected: 06/16/24
Time Specimen was Collected: 12:39
Urine Microscopic Reflex Cult Urgent
Urine Culture Urgent
VIVEK Source: U
Specimen Description:
Date Specimen was Collected: 06/16/24
Time Specimen was Collected: 12:39
06/16/24 15:05
LevoFLOXacin [Levaquin] 500 mg PO NOW STA
Abnormal Lab Results
06/16/24
12:42
WBC 10.9 H 10^3/uL
(4.8-10.8)
RBC 4.29 L 10^6/uL
(4.70-6.10)
MCH 31.5 H pg
(27.0-31.0)
Abs Immat Gran (auto) 0.1 H 10^3/uL
(0-0.05)
Absolute Neuts (auto) 8.8 H 10^3/uL
(1.4-6.5)
Absolute Lymphs (auto) 1.0 L 10^3/uL
(1.2-3.4)
Absolute Monos (auto) 0.7 H 10^3/uL
(0.1-0.6)
Neutrophils % 80.5 H %
(42.2-75.2)
Lymphocytes % 9.4 L %
(20.5-51.1)
Chloride 109 H mmol/L
(98-107)
Carbon Dioxide 20 L mmol/L
(22-30)
BUN 28 H mg/dl
(9-20)
Creatinine 1.4 H mg/dL
(0.7-1.3)
Ur Occult Blood Reflex 4+ A
(Negative)
Urine Nitrite (Reflex) Positive A
(Negative)
Urine Bilirubin 1+ A
(Negative)
Urine Urobilinogen 2+ A
(Neg - 1+)
Leukocyte Esterase Rfl 2+ A
(Negative)
Urine RBC >100 A /HPF
(0-2)
Urine WBC (Reflex) 16-20 A /HPF
(0-5)
Urine Bacteria (Reflex) Few A
(Negative)
Urine Albumin (Reflex) 2+ A
(Neg - Trace)
06/16/24 12:42
06/16/24 12:42
Vital Signs
Initial and Last Documented VS:
Initial Vital Signs
Temp Pulse Resp BP Pulse Ox
97.9 F 102 18 158/86 94
06/16/24 10:26 06/16/24 10:26 06/16/24 10:26 06/16/24 10:26 06/16/24 10:26
Last Documented Vital Signs
Temp Pulse Resp BP Pulse Ox
97.9 F 102 18 158/86 94
06/16/24 10:26 06/16/24 10:26 06/16/24 10:26 06/16/24 10:26 06/16/24 10:26
MDM/Problems Addressed
MDM/Problems Addressed:
Clotted Cabrales catheter, urinary retention
*Radiology
Radiology exam reviewed: preliminary read by ED provider (No free air) and radiology read reviewed
*Pulse Oximetry
Patient hypoxic: no
*Critical Care Note
Total Time (30-74mins, 75-104mins- exclusive of procedures): Not Applicable
Data Reviewed
Source: patient and family
Patient Management
Escalation/DeEscalation of care consider admission/obs:
CT noted. Given nitrite in the urine, switch to Levaquin for 1 week. The patient has been on Bactrim but was to stop it tomorrow. He was to have his Cabrales catheter removed tomorrow but likely could benefit from leaving it at least for 48 more
hours. Will discuss with his urologist. I do think he is stable for outpatient follow-up. Catheter was changed with a larger catheter
ED Attending Note
-
Portions of this chart may have been created with voice recognition software.� Occasional wrong word or��sound alike� substitutions may have occurred due to the inherent limitations of voice recognition software.
Discharge Plan
Departure
Patient Disposition: Home (Routine Discharge)
Date of Disposition: 06/16/24
Time of Disposition: 15:11
Patient with high blood pressure during this ER visit?: Yes
Discharge Problem:
Hematuria, Acute urinary retention
Instructions: How to Care for Your Cabrales Catheter, Male, Blood in the Urine (Hematuria), Adult (DC), BLOOD PRESSURE
Prescriptions:
New
levofloxacin 500 mg tablet
500 mg PO DAILY 7 Days Qty: 7 0RF
No Action
escitalopram oxalate 10 mg Tablet
10 mg PO DAILY
atorvastatin 40 mg Tablet
40 mg PO DAILY
acetaminophen [Tylenol] 325 mg Tablet
650 mg PO Q4HPRN PRN (Reason: mild pain)
meloxicam 15 mg Tablet
15 mg PO DAILY
ascorbic acid (vitamin C) [Vitamin C] 500 mg Tablet
500 mg PO DAILY
potassium citrate 10 mEq (1,080 mg) Tablet Extended Release
10 meq PO BID
cholecalciferol (vitamin D3) [Vitamin D3] 25 mcg (1,000 unit) Tablet
25 mcg PO DAILY
tamsulosin [Flomax] 0.4 mg capsule
0.4 mg PO HS
loratadine [Allerclear] 10 mg Tablet
1 mg PO DAILY
aspirin 81 mg Capsule
81 mg PO DAILY
Referrals:
Selwyn Arenas DO [Family Provider] -
Activity Restrictions/Additional Instructions:
Please see your surgeon and follow-up in the next 3 to 5 days. Return immediately for fevers, vomiting, abdominal pain, back pain or any other concerns.
Interventions
Interventions:
*Risk Screen - Suicide Last Done: 06/16/24 10:26
*General Assessment Last Done: 06/16/24 10:26
*Neglect/Abuse Screening Last Done: 06/16/24 10:26
YI-Bltzuk-Wuketfpspx Assessment Last Done: 06/16/24 13:05
ED-Male Genitourinary Assessment Last Done: 06/16/24 13:05
Discharge Date and Time
Print Language: KHMER
[2024-06-16 15:05] VITALS: BP 146/78
[2024-06-16] MEDS: LEVAQUIN 500 MG PO (15:12)
== END 2024-06-16 15:54 | disposition home or self-care (01) ==
LOC: EMR 10:08
PROVIDERS: EMERGENCY PHYSICIAN Emergency Medicine; FAMILY PHYSICIAN Internal Medicine
DX: T83.098A Other mechanical complication of other urinary catheter, initial encounter (principal); R33.9 Retention of urine, unspecified; X58.XXXA Exposure to other specified factors, initial encounter; R10.30 Lower abdominal pain, unspecified; E78.00 Pure hypercholesterolemia, unspecified; I10 Essential (primary) hypertension; Z85.51 Personal history of malignant neoplasm of bladder; Z87.442 Personal history of urinary calculi
CPT/HCPCS: 99284; 51702; 96374; 74177; 80048; 81003; 81015; 85025; 87086; Q9967

== ENCOUNTER 2025-03-22 14:30 | Inpatient (IN) | payer MEDICARE, OTHER, SELFPAY ==
[2025-03-22] VITALS (44 sets, daily range): BP systolic 84–140; BP diastolic 49–107; BMI 38.9
--- NOTE | 2025-03-22 11:55 | ED.GENMED ---
History of Present Illness
<PEGGY Nick - Last Filed: 03/22/25 14:26>
General
Chief Complaint: Abdominal Pain
Source: patient
Exam Limitations: none
Time Seen by Provider: 03/22/25 11:23
Nursing documentation reviewed up to this point in time: agreed with
History of Present Illness
History of Present Illness:
Patient is a 69-year-old male with past medical history of bladder cancer and required intra bladder chemo; perforated diverticulitis presents to the ER for evaluation. Patient reports for the past 48-72 hours he has had intense abdominal pain. It
started in the back and now is in his right mid abdomen. He does have dry heaves. He denies any chills. He last bowel movement was 2 nights ago. He denies any urinary frequency urgency. He has been followed for his bladder cancer at [place]. He
has not multiple bladder surgeries. His last bladder surgery was in the spring.
Past History
<PEGGY Nick - Last Filed: 03/22/25 14:26>
Past History
ED Past Medical History: HTN, Hypercholesterolemia and Other (kidney stones, DDD in cervical and lumbar, bladder cancer, diverticulitis, perforated colon)
ED Past Surgical History: Urological (lithotripsy) and Other (partial colectomy)
Social History
Tobacco: Non-smoker
Alcohol: Occasional
Drug: None
Personal:
Living: with family
Employment: Employed
Family History
Family History: Other (Noncontributory)
Phy Exam
<PEGGY Nick - Last Filed: 03/22/25 14:26>
General Physical Exam
General Presentation: mild distress
General age: appears stated age
General Skin: warm and dry
General Habitus: normal
General Mental: alert
Cardiovascular Exam
Cardiovascular Exam: tachycardia
Pulmonary Exam
Pulmonary Exam: lungs clear and no respiratory distress
Gastrointestinal Exam
Gastrointestinal Exam: soft and other (tender throughout abdomen worse on the right )
Neurological Exam
Neurological Exam: alert and oriented x3
Musculoskeletal Exam
Musculoskeletal Exam: full ROM
Skin Exam
Skin Exam: normal color and warm/dry
Psychiatric Exam
Psychiatric Exam: normal mood/affect
Course
<PEGGY Nick - Last Filed: 03/22/25 14:26>
Orders/Labs/Results
Orders:
Orders
03/22/25 10:45
Electrocardiogram (*1) Urgent
Reason for Study: Tachycardia
EKG- Treatment ONCE
03/22/25 11:46
CMP [Comprehensive Metabolic Panel] Urgent
Complete Blood Count/With Diff Urgent
Troponin I Urgent
03/22/25 12:05
0.9% Sodium Chloride 1000 ml [Nss] 1,000 ml IV BOLUS
03/22/25 12:06
CT Abd/pelvis W Iv Cont Urgent
Comment:
Reason For Exam: right sided abd pain
03/22/25 12:07
HYDROmorphone [Dilaudid] 1 mg IV NOW STA
03/22/25 12:09
HYDROmorphone [Dilaudid] 1 mg .ROUTE .STK-MED ONE
03/22/25 12:33
Add On- LAB Urgent
Tests Added?: lactic acid
03/22/25 12:57
Lactic Acid Routine
03/22/25 13:33
Diltiazem 125 mg/125 ml Nss [Cardizem] 125 mg in 125 ml IV NOW
Initial dose in mg/hr, then titrate:: 5
Titrate to keep:: Heart rate 80-100 bpm
Titrate by mg/hr:: 5 mg/hr
Frequency of titrations (minutes):: 15
Maximum dose in mg/hr:: 15
Diltiazem HCl [Cardizem] 5 mg IV NOW STA
Piperacillin/Tazo 4.5 Gram [Zosyn] 4.5 gram in 100 ml IV NOW
03/22/25 13:54
UA Reflex to Culture [Urinalysis Reflex To Culture] Urgent
Date Specimen was Collected: 03/22/25
Time Specimen was Collected: 12:10
Urine Microscopic Reflex Cult Urgent
03/22/25 14:06
Admit/Transfer Patient As Directed
Co-Sign Provider:
Level of Care: Inpatient admission
Assign to:: IMU- Intermediate Care
Physician / Group: Ratnay
Diagnosis: Sepsis, Diverticulitis, Atrial Flutter
Reason for Hospitalization: IVFs, IV abx,
Expected length of stay greater than two midnights?: Yes
ELOS- Estimated Length of Stay in days: 3
I certify the patient meets the requirements for IP care: Yes
PRN Pain Medication Management As Directed
May give lesser potent ordered pain med per pt: Yes
preference::
Protocol:: Medication orders for pain may be administered in a
manner that supports deferring to patient preference
when the pt is:
- Requesting an ordered lesser potent pain medication.
Least to most potent pain medications are defined
as: acetaminophen < NSAID < tramadol < opioids
(morphine, oxycodone, hydromorphone).
- Requesting a lesser dose of the same medication IF
ORDERED.
- Requesting a less intrusive route of administration
if both routes are prescribed by the provider (PO <
IV).
03/22/25 14:08
Code Status As Directed
Resuscitation Status: Full Code
03/22/25 14:18
0.9% Sodium Chloride 1000 ml [Nss] 1,000 ml IV BOLUS
03/22/25 14:20
Add On- LAB Urgent
Tests Added?: CRP
Calprotectin, Fecal [S] Routine
CDIFF [C difficile Antigen & Toxins] Routine
VIVEK Source: Feces/Stool
Specimen Description:
Stool Culture Routine
VIVEK Source: Feces/Stool
Specimen Description:
03/23/25 06:00
CRP [C-Reactive Protein] IN AM
03/24/25 06:00
CRP [C-Reactive Protein] IN AM
03/25/25 06:00
CRP [C-Reactive Protein] IN AM
Abnormal Lab Results
03/22/25 03/22/25
11:46 13:54
WBC 14.9 H 10^3/uL
(4.8-10.8)
RBC 4.65 L 10^6/uL
(4.70-6.10)
MCH 31.6 H pg
(27.0-31.0)
Abs Immat Gran (auto) 0.1 H 10^3/uL
(0-0.05)
Absolute Neuts (auto) 12.2 H 10^3/uL
(1.4-6.5)
Absolute Monos (auto) 1.1 H 10^3/uL
(0.1-0.6)
Neutrophils % 81.9 H %
(42.2-75.2)
Lymphocytes % 9.5 L %
(20.5-51.1)
Chloride 109 H mmol/L
(98-107)
Carbon Dioxide 21 L mmol/L
(22-30)
BUN 22 H mg/dl
(9-20)
Glucose 128 H mg/dl
(70-99)
Total Bilirubin 1.5 H mg/dl
(0.2-1.3)
Ur Occult Blood Reflex 4+ A
(Negative)
Urine RBC 50-60 A /HPF
(0-2)
Urine Bacteria (Reflex) Few A
(Negative)
Urine Albumin (Reflex) 2+ A
(Neg - Trace)
03/22/25 11:46
03/22/25 11:46
Vital Signs
Initial and Last Documented VS:
Initial Vital Signs
Temp Pulse Resp BP Pulse Ox
97.6 F 148 18 133/89 97
03/22/25 10:41 03/22/25 10:41 03/22/25 10:41 03/22/25 10:41 03/22/25 10:41
Last Documented Vital Signs
Temp Pulse Resp BP Pulse Ox
97.6 F 145 18 140/83 94
03/22/25 10:41 03/22/25 13:49 03/22/25 10:41 03/22/25 13:49 03/22/25 13:22
Flour Mixer Helper consulted with Physician
Flour Mixer Helper consulted with physician?: Yes (Sarahi )
<Juan Manuel Mcclain, DO - Last Filed: 03/22/25 13:43>
Orders/Labs/Results
Orders:
Orders
03/22/25 10:45
Electrocardiogram (*1) Urgent
Reason for Study: Tachycardia
EKG- Treatment ONCE
03/22/25 11:46
CMP [Comprehensive Metabolic Panel] Urgent
Complete Blood Count/With Diff Urgent
Troponin I Urgent
03/22/25 12:05
0.9% Sodium Chloride 1000 ml [Nss] 1,000 ml IV BOLUS
03/22/25 12:06
CT Abd/pelvis W Iv Cont Urgent
Comment:
Reason For Exam: right sided abd pain
03/22/25 12:07
HYDROmorphone [Dilaudid] 1 mg IV NOW STA
03/22/25 12:09
HYDROmorphone [Dilaudid] 1 mg .ROUTE .STK-MED ONE
03/22/25 12:33
Add On- LAB Urgent
Tests Added?: lactic acid
03/22/25 12:57
Lactic Acid Routine
03/22/25 13:33
Diltiazem 125 mg/125 ml Nss [Cardizem] 125 mg in 125 ml IV NOW
Initial dose in mg/hr, then titrate:: 5
Titrate to keep:: Heart rate 80-100 bpm
Titrate by mg/hr:: 5 mg/hr
Frequency of titrations (minutes):: 15
Maximum dose in mg/hr:: 15
Diltiazem HCl [Cardizem] 5 mg IV NOW STA
Piperacillin/Tazo 4.5 Gram [Zosyn] 4.5 gram in 100 ml IV NOW
03/22/25 13:54
UA Reflex to Culture [Urinalysis Reflex To Culture] Urgent
Date Specimen was Collected: 03/22/25
Time Specimen was Collected: 12:10
Urine Microscopic Reflex Cult Urgent
03/22/25 14:06
Admit/Transfer Patient As Directed
Co-Sign Provider:
Level of Care: Inpatient admission
Assign to:: IMU- Intermediate Care
Physician / Group: Htay
Diagnosis: Sepsis, Diverticulitis, Atrial Flutter
Reason for Hospitalization: IVFs, IV abx,
Expected length of stay greater than two midnights?: Yes
ELOS- Estimated Length of Stay in days: 3
I certify the patient meets the requirements for IP care: Yes
PRN Pain Medication Management As Directed
May give lesser potent ordered pain med per pt: Yes
preference::
Protocol:: Medication orders for pain may be administered in a
manner that supports deferring to patient preference
when the pt is:
- Requesting an ordered lesser potent pain medication.
Least to most potent pain medications are defined
as: acetaminophen < NSAID < tramadol < opioids
(morphine, oxycodone, hydromorphone).
- Requesting a lesser dose of the same medication IF
ORDERED.
- Requesting a less intrusive route of administration
if both routes are prescribed by the provider (PO <
IV).
03/22/25 14:08
Code Status As Directed
Resuscitation Status: Full Code
03/22/25 14:18
0.9% Sodium Chloride 1000 ml [Nss] 1,000 ml IV BOLUS
03/22/25 14:20
Add On- LAB Urgent
Tests Added?: CRP
Calprotectin, Fecal [S] Routine
CDIFF [C difficile Antigen & Toxins] Routine
VIVEK Source: Feces/Stool
Specimen Description:
Stool Culture Routine
VIVEK Source: Feces/Stool
Specimen Description:
03/23/25 06:00
CRP [C-Reactive Protein] IN AM
03/24/25 06:00
CRP [C-Reactive Protein] IN AM
03/25/25 06:00
CRP [C-Reactive Protein] IN AM
Abnormal Lab Results
03/22/25 03/22/25
11:46 13:54
WBC 14.9 H 10^3/uL
(4.8-10.8)
RBC 4.65 L 10^6/uL
(4.70-6.10)
MCH 31.6 H pg
(27.0-31.0)
Abs Immat Gran (auto) 0.1 H 10^3/uL
(0-0.05)
Absolute Neuts (auto) 12.2 H 10^3/uL
(1.4-6.5)
Absolute Monos (auto) 1.1 H 10^3/uL
(0.1-0.6)
Neutrophils % 81.9 H %
(42.2-75.2)
Lymphocytes % 9.5 L %
(20.5-51.1)
Chloride 109 H mmol/L
(98-107)
Carbon Dioxide 21 L mmol/L
(22-30)
BUN 22 H mg/dl
(9-20)
Glucose 128 H mg/dl
(70-99)
Total Bilirubin 1.5 H mg/dl
(0.2-1.3)
Ur Occult Blood Reflex 4+ A
(Negative)
Urine RBC 50-60 A /HPF
(0-2)
Urine Bacteria (Reflex) Few A
(Negative)
Urine Albumin (Reflex) 2+ A
(Neg - Trace)
03/22/25 11:46
03/22/25 11:46
Vital Signs
Initial and Last Documented VS:
Initial Vital Signs
Temp Pulse Resp BP Pulse Ox
97.6 F 148 18 133/89 97
03/22/25 10:41 03/22/25 10:41 03/22/25 10:41 03/22/25 10:41 03/22/25 10:41
Last Documented Vital Signs
Temp Pulse Resp BP Pulse Ox
97.6 F 145 18 140/83 94
03/22/25 10:41 03/22/25 13:49 03/22/25 10:41 03/22/25 13:49 03/22/25 13:22
<PEGGY Nick - Last Filed: 03/22/25 14:26>
MDM/Problems Addressed
Differential Diagnosis Includes:
Not limited to diverticulitis perforation rapid A-fib, a flutter, dehydration
MDM/Problems Addressed:
As documented patient is a 69-year-old male with testicle history of bladder cancer presents for abdominal pain for the past several days. Patient is very tender throughout. He denies any fevers and is afebrile here with elevated white count of
14.9. Patient presented tachycardic with a heart rate in the 140s likely a flutter. Patient was initially treated for pain and given a fluid bolus however heart rate remained persistently in the 140s. Patient was eval by ED physician and Cardizem
drip was ordered. CAT scan shows findings can suspicious for diverticulitis with no intestinal obstruction or free air. IV antibiotics ordered. Patient was admitted to the hospitalist by ED physician IV antibiotics and Cardizem ordered
<PEGGY Nick - Last Filed: 03/22/25 14:26>
*Radiology
Radiology exam reviewed: radiology read reviewed
*Pulse Oximetry
SaO2: 95
Oxygen Mode of Delivery: Room air
Patient hypoxic: no
*EKG
Interpreted by ED Provider?: Yes
Heart Rate: 148
Rate: normal
Rhythm: sinus tachycardia
Ischemia: non-specific ST changes
<Juan Manuel Mcclain DO - Last Filed: 03/22/25 13:43>
*Critical Care Note
Total Time (30-74mins, 75-104mins- exclusive of procedures): 32
comment:
Critical care statement: A total of 32 minutes of critical care time was provided for this patient. This includes management of unstable vital signs, evaluation of the patient at bedside, reviewing the patient's pertinent medical records, discussion
with consultants, review of old EKGs and review of pertinent medical records. This time with separate from time utilized to perform the aforementioned documented procedures
ED Attending Note
<PEGGY Nick - Last Filed: 03/22/25 14:26>
-
Portions of this chart may have been created with voice recognition software.� Occasional wrong word or��sound alike� substitutions may have occurred due to the inherent limitations of voice recognition software.
<Juan Manuel Mcclain DO - Last Filed: 03/22/25 13:43>
ED Attending Note
Patient seen and examined by attending physician: Yes
ED Attending Note:
I reviewed and agree with patient treatment plan by PEGGY Johnson. My exam revealed 69-year-old male with ventral hernia, epigastric tenderness, tachycardia with regular rhythm. Patient has a flutter, rapid and diverticulitis. Diltiazem
drip and Zosyn ordered.
Discharge Plan
Departure
Patient Disposition: Admit
Date of Disposition: 03/22/25
Time of Disposition: 13:34
Admit to: IMU
Presentation/result/management discussed w/ accepting MD/DO: Hospitalist
Patient with high blood pressure during this ER visit?: Yes
Condition: Fair
Discharge Problem:
Atrial flutter with rapid ventricular response, Diverticulitis
Prescriptions:
No Action
escitalopram oxalate 10 mg Tablet
10 mg PO DAILY
atorvastatin 40 mg Tablet
40 mg PO DAILY
acetaminophen [Tylenol] 325 mg Tablet
650 mg PO Q4HPRN PRN (Reason: mild pain)
ascorbic acid (vitamin C) [Vitamin C] 500 mg Tablet
500 mg PO DAILY
potassium citrate 10 mEq (1,080 mg) Tablet Extended Release
10 meq PO TID
cholecalciferol (vitamin D3) [Vitamin D3] 25 mcg (1,000 unit) Tablet
25 mcg PO DAILY
loratadine [Allerclear] 10 mg Tablet
10 mg PO DAILY
aspirin 81 mg Tablet,Delayed Release (Dr/Ec)
81 mg PO DAILY
Referrals:
Selwyn Arenas DO [Family Provider, Internal Medicine]
Interventions
Interventions:
*Risk Screen - Suicide Last Done: 03/22/25 10:47
*General Assessment Last Done: 03/22/25 11:27
*Neglect/Abuse Screening Last Done: 03/22/25 10:47
*ED- Fall Risk Assessment Last Done: 03/22/25 11:27
*ED COVID-19 Vaccine History Last Done: 03/22/25 11:27
AP-Pcfzvb-Ntsmauhvbt Assessment Last Done: 03/22/25 11:27
Discharge Date and Time
Print Language: SLOVAK
[2025-03-22] MEDS: DILAUDID 1 MG IV (12:11)
[2025-03-22] MEDS: NSS 1000 IV ×3 (12:11→21:21)
[2025-03-22 12:14] LABS: Hematocrit 43.1 % (39.0-52.0); Hemoglobin 14.7 g/dL (13.0-18.0); Mean Corp Hgb Conc. 34.1 g/dL (33.0-37.0); Mean Corpuscular Volume 92.7 fL (80.0-94.0); Nucleated Red Blood Cells % 0 % (-); Platelet Count 204 10^3/uL (130-400); Red Cell Dist. Width 13.4 % (11.5-14.5)
[2025-03-22 12:22] LABS: ALT (SGPT) 23 U/L (0-50); AST (SGOT) 20 U/L (17-59); Albumin 4.6 g/dl (3.5-5.0); Alkaline Phosphatase 79 U/L (38-126); Blood Urea Nitrogen 22 mg/dl (9-20); Calcium 9.7 mg/dl (8.4-10.2); Carbon Dioxide 21 mmol/L (22-30); Chloride 109 mmol/L (98-107); Estimated Creatinine Clearance 79 ml/min; Glucose 128 mg/dl (70-99); Potassium 4.4 mmol/L (3.5-5.1); Sodium 138 mmol/L (135-145); Total Protein 7.8 g/dl (6.3-8.2); eGFR > 60.00
[2025-03-22 12:33] LABS: Troponin I < 0.012 ng/ml
--- NOTE | 2025-03-22 13:43 | HPS.HSE ---
Family Physician
-
Family Physician: Selwyn Arenas
Chief Complaint
-
Abdominal Pain
History of Present Illness
Patient is a 69 y/o male past medical history of hypertension, hyperlipidemia, anxiety, bladder cancer and perforated diverticulitis requiring colostomy in 2005 who presents with abdominal pain. Patient reports onset of pain about 72 hours ago.
Pain was mostly in the periumbilical region initially but now has shifted more to the right upper quadrant area. He reports slightly constipation with last bowel movement about 2 days ago. He reports nausea, vomiting and dry heaves. He denies
fevers, sweats or chills. He recently completed a coarse of antibiotics for a urinary tract infection. He reports no episodes of diverticulitis since his surgery in 2005.
Medical History
Past Medical History
Past Medical History: Reports Other
Additional Past Medical History:
Essential Hypertension
Hyperlipidemia
Generalized Anxiety Disorder
Cervical/Lumbar Degenerative Disc Disease
Diverticulitis
Nephrolithiasis
BPH
Bladder Cancer s/p TURBT and Intra-Vesicular Chemotherapy
Past Surgical History: Reports Other
Additional Past Surgical History:
Cervical Spine Fusion
Lithotripsy for Renal Calculi
Colon Resection for perforated diverticulitis with colostomy and subseqeunt reversal
TURBT
Bilateral Total Knee Replacements
Social History
Tobacco: Non-smoker
Alcohol: Occasional
Family History
Family History: Not pertinent
Allergies / Home Medications
Allergies reflects when Allergies were last updated in [employer]
Home Medications with original date entered in [employer]
Allergy/Medication List:
Allergies
Allergy/AdvReac Type Severity Reaction Status Date / Time
No Known Allergies Allergy Verified 04/14/24 12:45
Home Medications
escitalopram oxalate 10 mg tablet 10 mg PO DAILY Depression 01/24/23
acetaminophen 325 mg tablet (Tylenol) 650 mg PO Q4HPRN PRN mild pain 02/18/24
ascorbic acid (vitamin C) 500 mg tablet (Vitamin C) 500 mg PO DAILY Supplement 02/18/24
atorvastatin 40 mg tablet 40 mg PO DAILY High Cholesterol 02/18/24
cholecalciferol (vitamin D3) 25 mcg (1,000 unit) tablet (Vitamin D3) 25 mcg PO DAILY Supplement 02/18/24
potassium citrate 10 mEq (1,080 mg) tablet,extended release 10 meq PO TID Electrolyte Repletion 02/18/24
loratadine 10 mg tablet (Allerclear) 10 mg PO DAILY 04/10/24
aspirin 81 mg tablet,delayed release 81 mg PO DAILY 03/22/25
Review of Systems
-
A 12 point ROS was completed and negative except as noted: Yes
Constitutional: Denies Fever or Chills
Respiratory: Denies Cough or Trouble Breathing
Cardiac: Denies Chest Pain or Palpitations
Abdomen/GI: Reports See HPI
Physical Exam
Vital Signs
Vital Signs
Temp Pulse Resp BP Pulse Ox
97.6 F 144 18 112/63 94
03/22/25 10:41 03/22/25 13:22 03/22/25 10:41 03/22/25 13:22 03/22/25 13:22
Physical Exam
General: Comfortable and Conversant
HEENT: Anicteric and Moist mucous membranes
Respiratory: Clear and Non Labored Respirations
Cardiac: S1/S2, Regular Rhythm and Tachycardia
GI: Soft, Tender (Significant tenderness in Right upper quadrant with voluntary guarding) and Other (Positive supra-umbilical hernia which is nontender)
Rectal: Deferred by Provider
Genito-urinary: Other (Slight dark urine at bedside)
Musculoskeletal: No Clubbing, No Cyanosis and No Edema
Skin: Warm and Dry
Neuro: Awake, Alert and Oriented
Psych: Calm
Laboratory Results
-
03/22/25 11:46
03/22/25 11:46
Laboratory Results
Total Bilirubin 1.5 mg/dl (0.2-1.3) H 03/22/25 11:46
AST 20 U/L (17-59) 03/22/25 11:46
ALT 23 U/L (0-50) 03/22/25 11:46
Alkaline Phosphatase 79 U/L (38-126) 03/22/25 11:46
Troponin I < 0.012 ng/ml 03/22/25 11:46
Data Reviewed
-
CT Scan: Report Reviewed by me
Lab Data: Labs Reviewed by me
Impression/Plan
-
Sepsis secondary to Acute Uncomplicated Diverticulitis
-Admit to IMU
-Consult Colorectal Surgery given prior history and significant tenderness on exam
-Continue Zosyn
-Continue NPO/IVFS
Atrial Flutter, new diagnosis
-Consult Cardiology
-Continue Cardizem drip
-Check Echocardiogram
Prolonged QT
-Avoid further QT prolonging medications
-Recheck ECG in AM
Hyperlipemia
-Continue atorvastatin
Anxiety
-Continue Lexapro
DVT proph: Lovenox
Code Status: Full Code
--- NOTE | 2025-03-22 13:47 | W.PN.UPDATE ---
Update Note
Progress Note Update
This note serves as an addendum to the H&P by airfreight loading supervisor JEREMIAS
Niru DIETERICK
HPI
69M HX perforated diverticulitis s/p TURBT and TURP on 02/18/2024, for BPH, bladder tumow with hematuria , clot retention, requiring F cah , HTN, Dyslipidemia , mood disorder seen at ER
perforated diverticulitis presents to the ER for evaluation.
- for the past 48-72 hours he has had intense abdominal pain.
- started in the back and now is in his right mid abdomen.
- does have dry heaves.
-last bowel movement was 2 nights ago.
He has been followed for his bladder cancer at [facility].
HX multiple bladder surgeries. last bladder surgery was in the spring.
ROS
He denies any chills. He denies any urinary frequency urgency.
PHX; seea marisa
Vital Signs
Temp Pulse Resp BP Pulse Ox
97.6 F 144 18 112/63 94
03/22/25 10:41 03/22/25 13:22 03/22/25 10:41 03/22/25 13:22 03/22/25 13:22
PE
Gen:mild distress
HEENT:mosit OM
Lungs: CTA
Cor: tachycardia
Abdomen: soft and tender throughout abdomen worse on the right
STRUCTURAL STEEL ERECTION SUPERVISOR: grossylu NFND
Psych: normal mood/affect
Relevant data
Laboratory Tests
06/16/24 03/22/25
12:42 11:46
WBC 14.9 H
Hgb 14.7
Plt Count 204
Chloride 109 H
Carbon Dioxide 21 L
BUN 22 H
Creatinine 1.4 H 1.2
eGFR 55.43 > 60.00
Total Bilirubin 1.5 H
EKG
SINUS TACHYCARDIA
NON-SPECIFIC INTRA-VENTRICULAR CONDUCTION BLOCK
ABNORMAL ECG
WHEN COMPARED WITH ECG OF 07-APR-2024 12:24,
VENT. RATE HAS INCREASED BY 68 BPM
QRS DURATION HAS INCREASED
T WAVE INVERSION NOW EVIDENT IN INFERIOR LEADS
T WAVE INVERSION NOW EVIDENT IN ANTEROLATERAL LEADS
03/22/25 CT Abd/pelvis W Iv Cont
- Colonic diverticulosis again identified.
- Short segment thickening of the wall and surrounding stranding of the proximal transverse colon amongst some diverticula, suspicious for diverticulitis.
- No intestinal obstruction or free air.
- Midline supraumbilical anterior abdominal wall hernia increased in size in comparison to prior CT, containing loop of mid transverse colon without accompanying inflammatory changes.
- Cholelithiasis.
- Cannot exclude small anterior pericardial effusion.
Last hospitalist admission: 02/18/2024 -02/20/2024
DISCHARGE DIAGNOSES:
1. Gross hematuria with recently diagnosed bladder tumor.
2. Benign prostatic hypertrophy.
OTHER CONDITIONS:
1. Primary hypertension.
2. Dyslipidemia.
3. Mood disorder.
ASSESSMENT & PLAN
Fast A Flutter
- No prior HX of AFib/ Flutter
- agree with Diltiazem gtt for rate control
- ECHO
- CBC Card consult ( remote HX seeing Jeanette PARKER )
Sepsis due to diverticulitis
Acute diverticulitis; recurrent and uncomplicated
Tender central and RLQ abdomen but no peritonism
- NPO and IVF
- Agree with IV Zosyn
- PRN analgesia
- CRS consult
HX multiple bladder surgeries. last bladder surgery was in the spring.
s/p TURBT and TURP on 02/18/2024, for BPH, bladder tumow with hematuria , clot retention, requiring F Cath
HLD
- on ASA and atorvastatin
Mood disorder
- stable on Escitalopram
DVT Px: SCD
Full code
IMU
[2025-03-22] MEDS: CARDIZEM 5 MG IV (13:49)
[2025-03-22] MEDS: CARDIZEM 125 IV (13:52)
[2025-03-22 14:03] LABS: Urine Character Slightly Cloudy (Clear)
[2025-03-22] MEDS: ZOSYN 100 IV (14:03)
[2025-03-22 14:12] LABS: Urine Red Blood Cell 50-60 /HPF (0-2); Urine Squamous Cell 0-2 /LPF (Few); Urine White Cell 0-2 /HPF (0-5)
--- NOTE | 2025-03-22 14:27 | CON.CAR ---
Addendum entered and electronically signed by Isai Estrada MD 03/22/25 15:58:
I saw and examined the patient.
The MANAGER CONSUMER INSIGHTS's note was reviewed and I agree with the note except under past medical history coronary artery disease is listed in this patient does not have a history of coronary artery disease.
69-year-old male with a history of bladder cancer, hematuria melanoma diverticulitis with history of perforated diverticulitis requiring surgery who presents with abdominal pain patient incidentally noted to have atrial flutter with RVR patient
denies palpitations or heart racing no previous history of cardiac disease A-fib or atrial flutter. Last time he was at a physician's office and had vital signs about a month ago otherwise has not had his heart rate or blood pressure taken since
then time of onset unclear. Patient placed on IV Cardizem by ER.
.
Atrial flutter with RVR
- New diagnosis
- [id number] 1
- Duration unknown
- Patient with issues with recurrent hematuria which we will limit ability to anticoagulate. Last episode occurred in setting of UTI but it sounds as if he has had some intermittent hematuria every 2 to 3 months depending on the status of his
bladder CA and procedures. Based on this we will hold on anticoagulation currently
- Rate control with IV Cardizem. Patient currently on 15 mg/h. Further boluses of Cardizem or addition of beta-karlo appear to be limited by blood pressure. May consider using digoxin for additional rate control
.
Abdominal pain/diverticulitis
- Management as directed by primary team and general surgery
.
History of bladder cancer
History hematuria
Original Note:
Consultation
Consultation Request
Date/Time Consultation Requested: 03/22/25 1405
Date/Time Consultation Performed: 03/22/25 1420
Requesting Provider: Adriana Brown PA-C
Performing Provider: Alayna WOODS for Dr. Estrada
Reason for Consultation: atrial flutter
Medical History
-
Chief Complaint: abdominal pain
History of Present Illness:
69 y/o male with dyslipidemia, anxiety, bladder cancer with hx surgeries and localized chemo, melanoma with hx MOHS, hx perforated diverticulitis requiring surgery who is here for abdominal pain x 2-3 days (mid to right sided- tender to touch, sharp
with movement) and is admitted with sepsis in setting of diverticulitis. We are consulted for new atrial flutter. He does not feel it. No CP, SOB, dizziness, or palps.
Past Medical History
Past Medical History: CAD, Hypercholesterolemia and Other (as above)
Social History
Tobacco: Non-Smoker
Family History
Family History: Reviewed & Not Pertinent
Allergies / Home Medications
Allergy/AdvReac Type Severity Reaction Status Date / Time
No Known Allergies Allergy Verified 04/14/24 12:45
�Medication �Instructions �Recorded �Confirmed �Type
escitalopram oxalate 10 mg tablet 10 mg PO DAILY Depression 01/24/23 03/22/25 History
acetaminophen 325 mg tablet 650 mg PO Q4HPRN PRN mild pain 02/18/24 03/22/25 History
(Tylenol)
ascorbic acid (vitamin C) 500 mg 500 mg PO DAILY Supplement 02/18/24 03/22/25 History
tablet (Vitamin C)
atorvastatin 40 mg tablet 40 mg PO DAILY High Cholesterol 02/18/24 03/22/25 History
cholecalciferol (vitamin D3) 25 25 mcg PO DAILY Supplement 02/18/24 03/22/25 History
mcg (1,000 unit) tablet (Vitamin
D3)
potassium citrate 10 mEq (1,080 10 meq PO TID Electrolyte Repletion 02/18/24 03/22/25 History
mg) tablet,extended release
loratadine 10 mg tablet 10 mg PO DAILY 04/10/24 03/22/25 History
(Allerclear)
aspirin 81 mg tablet,delayed 81 mg PO DAILY 03/22/25 03/22/25 History
release
Review of Systems
-
History Source: Patient
All other systems: Negative unless noted
Abdomen/GI: Abdominal Pain
Physical Exam
Vital Signs
Temp Pulse Resp BP Pulse Ox
97.6 F 145 18 140/83 94
03/22/25 10:41 03/22/25 13:49 03/22/25 10:41 03/22/25 13:49 03/22/25 13:22
Lab Results
03/22/25 11:46
03/22/25 11:46
Troponin I < 0.012 ng/ml 03/22/25 11:46
Physical Exam
General: Well Developed, Well Nourished and No Apparent Distress
HEENT: Normocephalic and Anicteric
Respiratory: Clear and Non Labored Respirations
Cardiac: Regular Rhythm (a flutter, tachycardia)
Musculoskeletal: No Edema
Skin: Warm and Dry
Neuro: AO x 3
Psych: Calm
Impression / Plan
-
Sepsis, in setting of diverticulitis:
-on IV abx
-surgery is consulted
Atrial flutter: new diagnosis, type and onset unknown
-in setting of acute illness
-agree with IV diltiazem, which requires intensive monitoring
-update echo when HR better
-thyroid studies
-[id number] score 1 for age (versus 2- HTN on list here, but he denies HTN and tells me BP actually runs on low side as OP- elevated here, but in setting of pain). Holding off on AC in case patient were to need surgery, plus has history of
hematuria/clots with bladder cancer. Most recently noted in setting of UTI. He has a cystoscopy planned for April 11. Will review with signal apprentice.
-treat underlying illness as above, follow telemetry
Bladder cancer with hx surgeries/chemo:
-continue to follow at [facility]
-patient has had 4 surgeries and localized chemo for this, planned cysto for April 11
Data:
CT scan: Colonic diverticulosis again identified. Short segment thickening of the wall and surrounding stranding of the proximal transverse colon amongst some diverticula, suspicious for diverticulitis. No intestinal obstruction or free air. Midline
supraumbilical anterior abdominal wall hernia increased in size in comparison to prior CT, containing loop of mid transverse colon without accompanying inflammatory changes. Cholelithiasis. Cannot exclude small anterior pericardial effusion.
Echo 12/16/23: Normal left ventricular size and systolic function. No regional wall motion abnormalities are seen. LV ejection fraction is 55-60% by visual assessment. Mild concentric left ventricular hypertrophy. Normal diastolic function. Normal
right ventricular size. Normal right ventricular systolic function. Aortic sclerosis without stenosis. Mild aortic regurgitation. Trace tricuspid regurgitation. Estimated pulmonary artery pressure of 25-30 mmHg. Assuming a right atrial pressure of 3
mmHg.
Data Reviewed
-
EKG: Tracing Personally Visualized and interpreted (Aflutter 148 BPM)
CT Scan: Report Reviewed by me (as noted)
Medical Tests (Nuc Med, Echo etc): Report Reviewed by me (echo as noted)
Labs: Labs Reviewed by me
--- NOTE | 2025-03-22 14:57 | CON.CRS ---
Consultation
-
Date/Time Consultation Performed: 03/22/25
Performing Provider: Danilo Zambrano
Reason for Consultation: diverticulitis
Medical History
-
History of Present Illness:
69-year-old male with PMH of bladder cancer (s/p multiple surgeries including TURBTs, being managed at [facility]), melanoma s/p wide local excision from back, spine surgery and Mohs on the face), kidney stones, BPH, HTN, HLD and history of diverticulitis
requiring Jaquez's procedure 2006 s/p colostomy reversal who presents with 2-3 days of severe abdominal pain. He had some dry heaving yesterday, but denies vomiting. Denies any fevers. He had a UTI 2 to 3 weeks ago and was treated with
antibiotics. He denies any recent urinary symptoms. Denies any chest pain or shortness of breath. In the ED, his WBC was 14.9, his HR was 140s, EKG showing sinus tachycardia. Normotensive. CT scan showing area of segmental inflammation in the
proximal transverse colon associated with diverticula, concerning for diverticulitis. There is an umbilical hernia with colon herniated through this, which is immediately distal to the area of inflammation, but not involved in the hernia.
Past Medical History
Past Medical History: Other (As above)
Past Surgical History: Other (As above, lithotripsy, bilateral TKR)
Social History
Tobacco: Non-Smoker
Alcohol: Occasional
Drug: None
Personal:
Family History
Family History: Other (Family history of rectal cancer in his father)
Allergies / Home Medications
Allergy/AdvReac Type Severity Reaction Status Date / Time
No Known Allergies Allergy Verified 04/14/24 12:45
�Medication �Instructions �Recorded �Confirmed �Type
escitalopram oxalate 10 mg tablet 10 mg PO DAILY Depression 01/24/23 03/22/25 History
acetaminophen 325 mg tablet 650 mg PO Q4HPRN PRN mild pain 02/18/24 03/22/25 History
(Tylenol)
ascorbic acid (vitamin C) 500 mg 500 mg PO DAILY Supplement 02/18/24 03/22/25 History
tablet (Vitamin C)
atorvastatin 40 mg tablet 40 mg PO DAILY High Cholesterol 02/18/24 03/22/25 History
cholecalciferol (vitamin D3) 25 25 mcg PO DAILY Supplement 02/18/24 03/22/25 History
mcg (1,000 unit) tablet (Vitamin
D3)
potassium citrate 10 mEq (1,080 10 meq PO TID Electrolyte Repletion 02/18/24 03/22/25 History
mg) tablet,extended release
loratadine 10 mg tablet 10 mg PO DAILY 04/10/24 03/22/25 History
(Allerclear)
aspirin 81 mg tablet,delayed 81 mg PO DAILY 03/22/25 03/22/25 History
release
Review of Systems
-
A 10 point review of systems was completed, and was negative except as per HPI.
Physical Exam
Vital Signs
Temp 97.6 F 03/22/25 10:41
Pulse 144 03/22/25 14:30
Resp Rate 18 03/22/25 10:41
Blood pressure 116/75 03/22/25 14:30
SaO2 95 03/22/25 14:30
03/21/25 03/22/25 03/23/25
06:59 06:59 06:59
Actual Weight 122.9 kg
Body Mass Index (BMI) 38.9
Lab Results / Allergies
03/22/25 11:46
03/22/25 11:46
WBC 14.9 10^3/uL (4.8-10.8) H 03/22/25 11:46
Hgb 14.7 g/dL (13.0-18.0) 03/22/25 11:46
Hct 43.1 % (39.0-52.0) 03/22/25 11:46
Plt Count 204 10^3/uL (130-400) 03/22/25 11:46
Abs Immat Gran (auto) 0.1 10^3/uL (0-0.05) H 03/22/25 11:46
Neutrophils % 81.9 % (42.2-75.2) H 03/22/25 11:46
Allergy/AdvReac Type Severity Reaction Status Date / Time
No Known Allergies Allergy Verified 04/14/24 12:45
Physical Exam
General: Well Developed, Well Nourished and No Apparent Distress
HEENT: Normocephalic and Atraumatic
Respiratory: Non Labored Respirations
Cardiac: S1/S2
GI: Soft, Non Tender (Protuberant/obese) and Tender (Moderately to significantly tender in the RUQ to epigastric region, no rebound or guarding; palpable epigastric hernia that is reducible, no overlying skin changes)
Skin: Warm and Other (Moist skin, but not diaphoretic)
Neuro: AO x 3
Data Reviewed
-
CT Scan: Image Personally Visualized and interpreted, Discussed with Physician (ED) and Discussed with Patient
Labs: Labs Reviewed by me and Discussed with Patient
Assessment / Plan
-
69-year-old male with PMH of bladder cancer (s/p multiple surgeries including TURBTs, being managed at [facility]), melanoma s/p wide local excision from back, spine surgery and Mohs on the face), kidney stones, BPH, HTN, HLD and history of diverticulitis
requiring Jaquez's procedure 2006 s/p colostomy reversal who presents with 2-3 days of severe abdominal pain, WBC 14.9, HR 140s sinus tach, normotensive, CT showing area of segmental inflammation in the proximal transverse colon associated with
diverticula, concerning for diverticulitis. There is an umbilical hernia with colon herniated through this, which is immediately distal to the area of inflammation, but not involved in the hernia
�Segmental colitis associated with diverticula; most likely diverticulitis, other etiologies include infectious versus inflammatory, less likely ischemic
�Agree with IV antibiotics
�Will send stool cultures, C. difficile, fecal calprotectin and CRP; recommend trending WBC and CRP daily
�N.p.o. with aggressive IVF; okay for p.o. meds
�Lengthy discussion regarding treatment options, including nonoperative measures and surgery; although this is an atypical area for diverticulitis, that appears to be most likely the diagnosis; will follow-up the above workup; explained the risks
of emergent surgery, including but not limited to, open incision and need for colostomy; explained the risks of nonoperative measures, including failure and worsening of clinical status; I explained that he is very tachycardic with leukocytosis, but
has no hypotension or evidence of peritonitis; he explained that he would like to avoid surgery, especially another colostomy, at all costs; he understood well and agreed with the plan
�Pain control
� Recommend DVT PPx with Lovenox
� OOB/IS
� Appreciate hospitalist
--- NOTE | 2025-03-22 15:14 | CM ---
Met with patient at bedside in the ED
Pharmacy verified: [facility] @ [id number], [place]
Patient lives w/ spouse; multilevel home; powder room 1st floor; 2nd floor bath has walk-in shower w/ bench
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
No SNF utilization history; home health 2023 after bilateral knee replacements
Family member will transport home
Plan: discharge to home when medically stable; Case Management will monitor for discharge needs/services and support accordingly
[2025-03-22 16:17] LABS: C-Reactive Protein 134.90 mg/L (0.0-10.00)
[2025-03-22] MEDS: LANOXIN 250 MCG IV ×2 (16:18→21:36)
[2025-03-22] MEDS: DILAUDID 0.5 MG IV ×2 (17:19→21:20)
[2025-03-22] MEDS: UROCIT-K PO (17:20)
[2025-03-22] MEDS: LOVENOX 40 MG SC (18:24)
[2025-03-22] MEDS: ZOSYN 50 IV (21:20)
[2025-03-22] MEDS: UROCIT-K 10 MEQ PO (21:35)
[2025-03-23] VITALS (15 sets, daily range): BP systolic 94–154; BP diastolic 53–90; BMI 39.5
[2025-03-23] MEDS: DILAUDID 0.5 MG IV ×3 (01:10→16:35)
[2025-03-23] MEDS: ZOSYN 50 IV ×4 (02:34→20:12)
[2025-03-23] MEDS: NSS IV (03:07)
[2025-03-23 06:20] LABS: Hematocrit 37.8 % (39.0-52.0); Hemoglobin 12.5 g/dL (13.0-18.0); Mean Corp Hgb Conc. 33.1 g/dL (33.0-37.0); Mean Corpuscular Volume 96.4 fL (80.0-94.0); Platelet Count 159 10^3/uL (130-400); Red Cell Dist. Width 13.5 % (11.5-14.5)
[2025-03-23 06:41] LABS: Blood Urea Nitrogen 20 mg/dl (9-20); Calcium 8.4 mg/dl (8.4-10.2); Carbon Dioxide 26 mmol/L (22-30); Chloride 112 mmol/L (98-107); Estimated Creatinine Clearance 94 ml/min; Glucose 102 mg/dl (70-99); Magnesium 2.1 mg/dl (1.6-2.3); Potassium 4.3 mmol/L (3.5-5.1); Sodium 140 mmol/L (135-145); eGFR > 60.00
[2025-03-23 07:36] LABS: C-Reactive Protein 149.40 mg/L (0.0-10.00)
--- NOTE | 2025-03-23 07:53 | CARDSERVLU ---
Echocardiogram with Lumason completed after protocol screening completed. Allergies verified.
Patent IV site: _left add____
IV site flushed with 0.9% NaCl pre and post administration.
Diluted bolus method utilized to enhance visualization of ventricular horton.
Total volume given: _1.5___ mL
Patient tolerated all procedures well without complications.
--- NOTE | 2025-03-23 09:33 | W.PN.CD ---
Today's Communication / Plan
-
Cont Aspirin 81 mg
Start dilt 240 mg
stop digoxin
Will setup outpt appointment for follow up.
Impression / Plan
-
Sepsis, in setting of diverticulitis:
-on IV abx
-surgery is consulted
Atrial flutter: new diagnosis, type and onset unknown; back in SR
-in setting of acute illness
-start Dilt 240 mg, will stop digoxin
-thyroid normal
-[id number] score 1 for age (versus 2- HTN on list here, but he denies HTN and tells me BP actually runs on low side as OP- elevated here, but in setting of pain). Holding off on AC in case patient were to need surgery, plus has history of
hematuria/clots with bladder cancer. Most recently noted in setting of UTI. He has a cystoscopy planned for April 11. Will review with pipe production worker.
-Given frequent bouts of hematuria; likely not a good candidate for Eliquis, will discuss ablation, will cont aspirin 81 mg discussed with patient; fortunately low CHADSVASC score
Bladder cancer with hx surgeries/chemo:
-continue to follow at [facility]
-patient has had 4 surgeries and localized chemo for this, planned cysto for April 11
Data:
CT scan: Colonic diverticulosis again identified. Short segment thickening of the wall and surrounding stranding of the proximal transverse colon amongst some diverticula, suspicious for diverticulitis. No intestinal obstruction or free air. Midline
supraumbilical anterior abdominal wall hernia increased in size in comparison to prior CT, containing loop of mid transverse colon without accompanying inflammatory changes. Cholelithiasis. Cannot exclude small anterior pericardial effusion.
Echo 12/16/23: Normal left ventricular size and systolic function. No regional wall motion abnormalities are seen. LV ejection fraction is 55-60% by visual assessment. Mild concentric left ventricular hypertrophy. Normal diastolic function. Normal
right ventricular size. Normal right ventricular systolic function. Aortic sclerosis without stenosis. Mild aortic regurgitation. Trace tricuspid regurgitation. Estimated pulmonary artery pressure of 25-30 mmHg. Assuming a right atrial pressure of 3
mmHg.
Echo March 23 2025:
CONCLUSIONS
Normal biventricular size and systolic function without regional wall motion
abnormality.
LVEF is 55-60% by Barriga's method of discs. Normal diastolic function.
Mild aortic regurgitation.
Estimated pulmonary artery pressure of 40 mmHg assuming a right atrial pressure
of 3 mmHg.
Compared to prior from December 16, 2023, estimated PASP is top normal at 40 mmHg,
previously normal.
Physical Exam
Vital Signs/Labs
Vital Signs
Temp Pulse Resp BP Pulse Ox
98.5 F 70 18 110/74 95
03/23/25 08:31 03/23/25 05:30 03/22/25 10:41 03/23/25 05:30 03/22/25 21:01
03/22/25 03/23/25 03/24/25
06:59 06:59 06:59
Actual Weight 270 lb 15.17 oz
03/23/25 06:07
03/23/25 06:07
Magnesium 2.1 mg/dl (1.6-2.3) 03/23/25 06:07
LAB Results
03/22/25
11:46
Troponin I < 0.012
Physical Exam
Constitutional: No acute distress and Comfortable
EENT: Anicteric
Cardiovascular: Rhythm & rate is regular
Respiratory: Respiratory effort normal
GI: Soft
Neuro/Psych: Alert and Oriented
Data Reviewed
-
Date of Service: March 23, 2025
EKG: Tracing Personally Visualized and interpreted (sr)
Echo: Tracing Personally Visualized and interpreted
Labs: Labs Reviewed by me
[2025-03-23] MEDS: LEXAPRO 10 MG PO (09:35)
[2025-03-23] MEDS: UROCIT-K 10 MEQ PO ×3 (09:35→23:03)
[2025-03-23] MEDS: LIPITOR 40 MG PO (09:35)
--- NOTE | 2025-03-23 09:35 | W.PN.HOSP.TC ---
Today's Communication/Plan
-
see bold
Assessment / Plan
Assessment / Plan
HPI: 69 y/o male past medical history of hypertension, hyperlipidemia, anxiety, bladder cancer and perforated diverticulitis requiring colostomy in 2005 who presents with abdominal pain. Patient reports onset of pain about 72 hours ago. Pain was
mostly in the periumbilical region initially but now has shifted more to the right upper quadrant area. He reports slightly constipation with last bowel movement about 2 days ago. He reports nausea, vomiting and dry heaves. He denies fevers,
sweats or chills. He recently completed a coarse of antibiotics for a urinary tract infection. He reports no episodes of diverticulitis since his surgery in 2005.
Sepsis secondary to Acute Uncomplicated Diverticulitis
- Appreciate colorectal surgery input, continue IV Zosyn
- Advance diet to full liquids
Rapid Atrial Flutter, new diagnosis
- Appreciate cardiology input, back to normal sinus rhythm status post Cardizem drip and digoxin
- Echo EF 50-60%
- Not a candidate for anticoagulation secondary to intermittent hematuria
- Cardiology recommends aspirin 81 mg daily, and diltiazem 240 mg daily, stop digoxin
Prolonged QT
-Avoid further QT prolonging medications
-Monitor daily EKG
Coronary artery disease
- Continue aspirin, statin
Bladder cancer
- History of surgery and chemo, plan cystoscopy for April 11
- Follow-up with his usual oncologist at [facility]
Hyperlipemia
-Continue atorvastatin
Anxiety
-Continue Lexapro
Obesity due to excess calories
- Affects all aspects of care
Abdominal wall hernia
Cholelithiasis
DVT proph: Lovenox
Code Status: Full Code
Total time spent to see the patient on the floor, examine the patient, review data and lab results, discuss treatment plan with patient, nursing staff around 50 minutes.
Physical Exam
General: Obese, no acute distress
HEENT: Normocephalic, Atraumatic, EOMI, MMM
Respiratory: Clear to Auscultation bilaterally
Cardiac: Normal S1/S2, Regular Rate and Rhythm
GI: Soft, tender at the right lower quadrant, Nondistended, Normal Bowel Sounds
Extremities: No Clubbing, Cyanosis, or Edema
Neuro: Nonfocal/Grossly Intact
Psych: Calm, Cooperative
Derm: No Visible lesions
Anticipated Discharge: > 48 hours
Subjective/Interval History
-
Date of Service: March 23, 2025
Patient reports improvement in his right lower quadrant abdominal pain. Today is 3 out of 10 in intensity, yesterday was 10. Denies chest pain, denies shortness of breath. Had palpitations yesterday, which resolved. No fever, no vomiting.
Objective Data
-
Labs:
Laboratory Results
03/23/25
06:07
WBC 8.8
Hgb 12.5 L
Hct 37.8 L
Plt Count 159 D
Sodium 140
Potassium 4.3
Chloride 112 H
Carbon Dioxide 26
BUN 20
Creatinine 1.0
Glucose 102 H
Calcium 8.4
Vital Signs:
Vital Signs
Temp Pulse Resp BP Pulse Ox
98.5 F 70 18 110/74 95
03/23/25 08:31 03/23/25 05:30 03/22/25 10:41 03/23/25 05:30 03/22/25 21:01
[2025-03-23] MEDS: NSS 1000 IV ×2 (09:36→17:56)
[2025-03-23] MEDS: CARDIZEM CD 240 MG PO (11:37)
--- NOTE | 2025-03-23 13:04 | W.PN.CRS1 ---
Today's Communication / Plan
-
Fulls.
Assessment/Plan
-
Uncomplicated transverse colon diverticulitis.
1. WBC has normalized. Afebrile. Continue antibiotics.
2. Full liquid diet ordered. Can advance from there presuming tolerates.
Subjective Data
Subjective Data
Date of Service: March 23, 2025
Less pain. No nausea.
Objective Data
-
Vital Signs
Temp Pulse Resp BP Pulse Ox
98.5 F 70 18 103/63 95
03/23/25 08:31 03/23/25 05:30 03/22/25 10:41 03/23/25 11:37 03/22/25 21:01
Intake & Output
03/22/25 03/23/25 03/24/25
06:59 06:59 06:59
Intake Total 120 / 120
Balance 120 / 120
Intake:
Oral fluids 120 / 120
Other:
Number of approximated MODERATE 3
amounts of urine
Lab Results
03/23/25 06:07
03/23/25 06:07
Physical Exam
-
General: No Acute Distress
Chest: Clear
Cardiovascular: Regular Rate & Rhythm
Abdomen: Soft, Non Distended and Tender (mild epigastric)
--- NOTE | 2025-03-23 13:50 | CM ---
CM reviewed chart, patient seen bedside. Patient remains on IV antibiotics. Patient plan remains return home with when stable. CM will continue to follow for all discharge planning needs.
Plan; home with likely
[2025-03-23] MEDS: LOVENOX 40 MG SC ×2 (17:57→18:26)
[2025-03-24] MEDS: NSS 1000 IV (02:35)
[2025-03-24] MEDS: ZOSYN 50 IV ×2 (02:37→08:34)
[2025-03-24 03:13] VITALS: BP 112/62
[2025-03-24 05:47] LABS: Hematocrit 34.1 % (39.0-52.0); Hemoglobin 11.2 g/dL (13.0-18.0); Mean Corp Hgb Conc. 32.8 g/dL (33.0-37.0); Mean Corpuscular Volume 95.5 fL (80.0-94.0); Platelet Count 156 10^3/uL (130-400); Red Cell Dist. Width 13.2 % (11.5-14.5)
[2025-03-24 06:00] VITALS: BMI 39.6
[2025-03-24 06:17] LABS: Blood Urea Nitrogen 13 mg/dl (9-20); C-Reactive Protein 59.70 mg/L (0.0-10.00); Calcium 8.2 mg/dl (8.4-10.2); Carbon Dioxide 26 mmol/L (22-30); Chloride 110 mmol/L (98-107); Estimated Creatinine Clearance 106 ml/min; Glucose 93 mg/dl (70-99); Magnesium 2.2 mg/dl (1.6-2.3); Potassium 4.5 mmol/L (3.5-5.1); Sodium 137 mmol/L (135-145); eGFR > 60.00
[2025-03-24 07:00] VITALS: BP 119/82
[2025-03-24] MEDS: CARDIZEM CD 240 MG PO (08:34)
[2025-03-24] MEDS: UROCIT-K 10 MEQ PO (08:35)
[2025-03-24] MEDS: LEXAPRO 10 MG PO (08:35)
[2025-03-24] MEDS: LIPITOR 40 MG PO (08:35)
--- NOTE | 2025-03-24 08:38 | W.PN.HOSP.TC ---
Today's Communication/Plan
-
Cleared by general surgery for discharge today
Assessment / Plan
Assessment / Plan
HPI: 69 y/o male past medical history of hypertension, hyperlipidemia, anxiety, bladder cancer and perforated diverticulitis requiring colostomy in 2005 who presents with abdominal pain. Patient reports onset of pain about 72 hours ago. Pain was
mostly in the periumbilical region initially but now has shifted more to the right upper quadrant area. He reports slightly constipation with last bowel movement about 2 days ago. He reports nausea, vomiting and dry heaves. He denies fevers,
sweats or chills. He recently completed a coarse of antibiotics for a urinary tract infection. He reports no episodes of diverticulitis since his surgery in 2005.
Sepsis secondary to Acute Uncomplicated Diverticulitis
- Appreciate colorectal surgery input, improving on IV Zosyn
- Tolerating diet, CRP trending down, abdominal pain dramatically improved
- Cleared by general surgery for discharge on Augmentin to complete a 10-day course, follow-up with PCP in the office
Rapid Atrial Flutter, new diagnosis
- Appreciate cardiology input, back to normal sinus rhythm status post Cardizem drip and digoxin
- Echo EF 50-60%
- Not a candidate for anticoagulation secondary to intermittent hematuria
- Cardiology recommends aspirin 81 mg daily, and diltiazem 240 mg daily, stopped digoxin
- Follow-up with cardiology in the office
Prolonged QT
-Avoid further QT prolonging medications
-Monitor daily EKG
Coronary artery disease
- Continue aspirin, statin
Bladder cancer
- History of surgery and chemo, plan cystoscopy for April 11
- Follow-up with his usual oncologist at [facility]
Hyperlipemia
-Continue atorvastatin
Anxiety
-Continue Lexapro
Obesity due to excess calories
- Affects all aspects of care
Abdominal wall hernia
Cholelithiasis
DVT proph: Lovenox
Code Status: Full Code
Updated son at bedside 03/24
Physical Exam
General: Obese, no acute distress
HEENT: Normocephalic, Atraumatic, EOMI, MMM
Respiratory: Clear to Auscultation bilaterally
Cardiac: Normal S1/S2, Regular Rate and Rhythm
GI: Soft, tender at the right lower quadrant, Nondistended, Normal Bowel Sounds
Extremities: No Clubbing, Cyanosis, or Edema
Neuro: Nonfocal/Grossly Intact
Psych: Calm, Cooperative
Derm: No Visible lesions
Anticipated Discharge: Today
Subjective/Interval History
-
Date of Service: March 24, 2025
Patient reports his abdominal pain is 1 out of 10 in intensity. Denies chest pain, denies shortness of breath. No fever, no vomiting. He is tolerating his diet.
Objective Data
-
Labs:
Laboratory Results
03/24/25
05:01
WBC 6.2
Hgb 11.2 L
Hct 34.1 L
Plt Count 156
Sodium 137
Potassium 4.5
Chloride 110 H
Carbon Dioxide 26
BUN 13
Creatinine 0.9
Glucose 93
Calcium 8.2 L
Vital Signs:
Vital Signs
Temp Pulse Resp BP Pulse Ox
98.4 F 75 16 112/62 92
03/24/25 03:13 03/24/25 03:13 03/24/25 03:13 03/24/25 03:13 03/24/25 03:13
I&O
03/23/25 03/24/25 03/25/25
06:59 06:59 06:59
Intake Total 2139 / 2139
Output Total 240 / 240
Balance 1899 / 190
--- NOTE | 2025-03-24 10:52 | W.DCSUMMARY ---
Discharge Summary
Discharge Data
Date of Admission: 03/22/25
Date of Discharge: 03/24/25
-
Pending Results: No
Hospital Course
Discharge diagnoses:
Sepsis secondary to acute uncomplicated diverticulitis
History of perforated diverticulitis requiring colostomy in 2005
New onset rapid atrial flutter
Abnormal EKG
Coronary artery disease
Bladder cancer
CT abd/pelvis:
Colonic diverticulosis again identified. Short segment thickening of the wall and surrounding stranding of the proximal transverse colon amongst some diverticula, suspicious for diverticulitis. No intestinal obstruction or free air.
Midline supraumbilical anterior abdominal wall hernia increased in size in comparison to prior CT, containing loop of mid transverse colon without accompanying inflammatory changes.
Cholelithiasis. Cannot exclude small anterior pericardial effusion.
Echo:
Normal biventricular size and systolic function without regional wall motion
abnormality.
LVEF is 55-60% by Barriga's method of discs. Normal diastolic function.
Mild aortic regurgitation.
Estimated pulmonary artery pressure of 40 mmHg assuming a right atrial pressure
of 3 mmHg.
Compared to prior from December 16, 2023, estimated PASP is top normal at 40 mmHg,
previously normal.
Hospital course:
69-year-old male with a past medical history of perforated diverticulitis requiring colostomy 2005, coronary artery disease, and bladder cancer who was admitted for sepsis secondary to acute uncomplicated diverticulitis. Patient was seen in
conjunction with colorectal surgery. He was treated with IV Zosyn.
Patient also had new onset rapid atrial flutter. He was seen in conjunction with cardiology. He was treated with IV diltiazem drip as well as Cardizem. He converted to normal sinus rhythm. He has a history of bladder cancer and has intermittent
hematuria. Because of this, he is not an anticoagulation candidate. Cardiology recommends continuing his aspirin 81 mg daily. He was transitioned to diltiazem 240 mg p.o. daily. His digoxin was discontinued.
Patient's diverticulitis improved. He tolerated a diet. He is medically stable and cleared by surgery for discharge on Augmentin to complete a 10-day course. He needs to follow-up with his PCP in 1 week, cardiology in the office in 2-3 weeks, as
well as colorectal surgery in 2-4 weeks.
Disposition: Home self-care
Discharge planning: Required 39-minute
Discharge Plan
-
Patient Disposition: Home (Routine Discharge)
Discharge Diagnosis/Procedures: Sepsis, acute diverticulitis, new rapid atrial flutter with rapid ventricular response, bladder cancer
Condition: Good
Diet: Low Fiber
Activity: As tolerated
Driving Restrictions: As prior to admission
Activity Restrictions/Additional Instructions:
Please follow-up with your primary care doctor in 1 week, and colorectal surgery in the office in 2-4 weeks.
Referrals:
Danilo Zambrano MD [Active, ColoRectal] - in two to four weeks
Selwyn Arenas DO [Family Provider, Internal Medicine] - in one week
Prescriptions:
New
diltiazem HCl 240 mg Capsule,Extended Release 24hr
240 mg PO DAILY Qty: 30 0RF
amoxicillin-pot clavulanate 875-125 mg tablet
1 tab PO Q12H 8 Days Qty: 16 0RF
Continued
escitalopram oxalate 10 mg Tablet
10 mg PO DAILY
atorvastatin 40 mg Tablet
40 mg PO DAILY
acetaminophen [Tylenol] 325 mg Tablet
650 mg PO Q4HPRN PRN (Reason: mild pain)
ascorbic acid (vitamin C) [Vitamin C] 500 mg Tablet
500 mg PO DAILY
potassium citrate 10 mEq (1,080 mg) Tablet Extended Release
10 meq PO TID
cholecalciferol (vitamin D3) [Vitamin D3] 25 mcg (1,000 unit) Tablet
25 mcg PO DAILY
loratadine [Allerclear] 10 mg Tablet
10 mg PO DAILY
aspirin 81 mg Tablet,Delayed Release (Dr/Ec)
81 mg PO DAILY
Discharge Orders:
Discharge Patient (As Directed); Ordered 03/24/25
Ordered By: Cyril Zamora
Discharge Date and Time
Discharge Date/Time: 03/24/25 12:03
Print Language: MAORI
--- NOTE | 2025-03-24 11:16 | W.PN.CRS1 ---
Addendum entered and electronically signed by Yuriy Polanco MD 03/24/25 11:32:
I saw and examined the patient.
The Planer Operator's note was reviewed and I agree with the note.
Comment: No complaints, abd exam benign. Would adv to [facility] and dc home with po abx. Outpt f/u with CRS
Original Note:
Today's Communication / Plan
-
LRD
ABX
Assessment/Plan
-
69 yo male presenting with uncomplicated diverticulitis
AFVSS
No leukocytosis
Pain resolved
Tolerating diet advancements
Plan:
Ok for low residue diet
Continue abx, ok to transition to PO for discharge
Ok for d/c from CRS standpoint, dispo as per primary team
Will arrange OP follow up with Dr. Zambrano
Subjective Data
Subjective Data
Date of Service: March 24, 2025
Pt seen and examined at bedside with Dr. Polanco. Denies n/v. Tolerating diet. Pain resolved. Eager for discharge.
Objective Data
-
Vital Signs
Temp Pulse Resp BP Pulse Ox
98.0 F 69 16 119/82 95
03/24/25 07:00 03/24/25 07:00 03/24/25 07:00 03/24/25 07:00 03/24/25 07:00
Intake & Output
03/23/25 03/24/25 03/25/25
06:59 06:59 06:59
Intake Total 2140 / 2140
Output Total 240 / 240
Balance 1900 / 1900
Intake:
Oral fluids 840 / 840
IV fluids (Total) 1200 / 1200
IV piggybacks 100 / 100
Output:
Urine, Voided 240 / 240
Other:
Number of approximated MODERATE 2
amounts of urine
Lab Results
03/24/25 05:01
03/24/25 05:01
Physical Exam
-
General: No Acute Distress
Chest: Clear
Cardiovascular: Regular Rate & Rhythm
Abdomen: Soft, Non Distended and Non Tender
[2025-03-24] MEDS: AUGMENTIN 875 MG/125 MG 1 TABLET PO (11:30)
[2025-03-24] MEDS: NSS IV (11:48)
--- NOTE | 2025-03-24 11:54 | CM ---
gas well drilling manager reviewed patient's chart and met with patient and plan is home today.
Plan; Home no needs.
== END 2025-03-24 12:03 | disposition home or self-care (01) | DRG 872 ==
LOC: 4 WEST ACU 14:30
PROVIDERS: Nurse Practitioner; Physician Assistant Medical; ADMITTING PHYSICIAN Internal Medicine; ATTENDING PHYSICIAN Family Medicine; CONSULT PHYSICIAN Internal Medicine Cardiovascular Disease; CONSULT PHYSICIAN Surgery; EMERGENCY PHYSICIAN Emergency Medicine; FAMILY PHYSICIAN Internal Medicine
DX: A41.9 Sepsis, unspecified organism (principal); I48.92 Unspecified atrial flutter; K57.32 Diverticulitis of large intestine without perforation or abscess without bleeding; C67.9 Malignant neoplasm of bladder, unspecified; R31.0 Gross hematuria; N40.0 Benign prostatic hyperplasia without lower urinary tract symptoms; I10 Essential (primary) hypertension; F39 Unspecified mood [affective] disorder; E78.00 Pure hypercholesterolemia, unspecified; F41.1 Generalized anxiety disorder; I25.10 Atherosclerotic heart disease of native coronary artery without angina pectoris; K42.9 Umbilical hernia without obstruction or gangrene; K43.9 Ventral hernia without obstruction or gangrene; K80.20 Calculus of gallbladder without cholecystitis without obstruction; M50.30 Other cervical disc degeneration, unspecified cervical region; M51.369 Other intervertebral disc degeneration, lumbar region without mention of lumbar back pain or lower extremity pain; E66.09 Other obesity due to excess calories; Z79.82 Long term (current) use of aspirin; Z79.899 Other long term (current) drug therapy; Z68.39 Body mass index [BMI] 39.0-39.9, adult
CPT/HCPCS: 74177; 80048; 80053; 81003; 81015; 83735; 84100; 84443; 84484; 85025; 85027; 86140; 93005; 93306; 96361; 96365; 96366; 96375; 99291; J1160; Q9967

== ENCOUNTER → 2025-04-12 13:18 | Outpatient (REF) | payer MEDICARE, OTHER, SELFPAY ==
[2025-04-12 14:20] LABS: Hematocrit 39.5 % (39.0-52.0); Hemoglobin 13.1 g/dL (13.0-18.0); Mean Corp Hgb Conc. 33.2 g/dL (33.0-37.0); Mean Corpuscular Volume 94.3 fL (80.0-94.0); Nucleated Red Blood Cells % 0 % (-); Platelet Count 209 10^3/uL (130-400); Red Cell Dist. Width 12.8 % (11.5-14.5)
[2025-04-12 14:52] LABS: ALT (SGPT) 23 U/L (0-50); AST (SGOT) 20 U/L (17-59); Albumin 4.5 g/dl (3.5-5.0); Alkaline Phosphatase 90 U/L (38-126); Blood Urea Nitrogen 17 mg/dl (9-20); Calcium 9.4 mg/dl (8.4-10.2); Carbon Dioxide 25 mmol/L (22-30); Chloride 108 mmol/L (98-107); Glucose 93 mg/dl (70-99); Potassium 4.4 mmol/L (3.5-5.1); Sodium 139 mmol/L (135-145); Total Protein 7.5 g/dl (6.3-8.2); eGFR > 60.00
== END ==
LOC: REG 13:18
PROVIDERS: ATTENDING PHYSICIAN Nurse Practitioner Family; OTHER PHYSICIAN Nurse Practitioner; OTHER PHYSICIAN Surgery; REFERRING PHYSICIAN Urology
DX: Z09 Encounter for follow-up examination after completed treatment for conditions other than malignant neoplasm (principal); N20.0 Calculus of kidney
CPT/HCPCS: 36415; 80053; 85025

== ENCOUNTER 2025-04-28 23:39 | Emergency (ER) | payer MEDICARE, OTHER, SELFPAY ==
[2025-04-28 23:40] VITALS: BP 140/69
[2025-04-29 00:35] VITALS: BMI 41.1
[2025-04-29 00:44] VITALS: BP 121/76
[2025-04-29 01:00] VITALS: BP 127/77
[2025-04-29 01:00] LABS: Hematocrit 38.4 % (39.0-52.0); Hemoglobin 13.3 g/dL (13.0-18.0); Mean Corp Hgb Conc. 34.6 g/dL (33.0-37.0); Mean Corpuscular Volume 93.7 fL (80.0-94.0); Nucleated Red Blood Cells % 0 % (-); Platelet Count 196 10^3/uL (130-400); Red Cell Dist. Width 13.2 % (11.5-14.5)
[2025-04-29 01:12] LABS: ALT (SGPT) 26 U/L (0-50); AST (SGOT) 23 U/L (17-59); Albumin 4.3 g/dl (3.5-5.0); Alkaline Phosphatase 90 U/L (38-126); Blood Urea Nitrogen 22 mg/dl (9-20); Calcium 9.6 mg/dl (8.4-10.2); Carbon Dioxide 25 mmol/L (22-30); Chloride 108 mmol/L (98-107); Estimated Creatinine Clearance 69 ml/min; Glucose 109 mg/dl (70-99); Potassium 4.0 mmol/L (3.5-5.1); Sodium 141 mmol/L (135-145); Total Protein 7.0 g/dl (6.3-8.2); eGFR 55.09
--- NOTE | 2025-04-29 01:35 | ED.GENMED ---
History of Present Illness
General
Chief Complaint: Male Genito-Urinary Symptoms
Source: patient
Exam Limitations: none
Time Seen by Provider: 04/29/25 00:35
Nursing documentation reviewed up to this point in time: agreed with
History of Present Illness
History of Present Illness:
Send 69-year-old male with past medical history of A-fib hypertension hyperlipidemia diverticulitis, history of perforated diverticulitis in 2005. Patient is not anticoagulated due to history of bladder cancer and intermittent hematuria. Patient
presented with hematuria which started 1-1/2 days ago started out as pink in color now reports tobin red. He does have abdominal pain and cramping. Denies any fever chills nausea vomiting back pain. Patient is not on blood thinners as he has a
history of intermittent hematuria since having bladder cancer.
He is followed by [facility] Dr. Sandra Gandhi, urologist
Past History
Past History
ED Past Medical History: HTN, Hypercholesterolemia and Other (kidney stones, DDD in cervical and lumbar, bladder cancer, diverticulitis, perforated colon)
ED Past Surgical History: Urological (lithotripsy) and Other (partial colectomy)
Social History
Tobacco: Non-smoker
Alcohol: Occasional
Drug: None
Personal:
Living: with family
Employment: Employed
Family History
Family History: Other (Noncontributory)
Phy Exam
General Physical Exam
General Presentation: no apparent distress
General age: appears stated age
General Skin: warm and dry
General Habitus: normal
General Mental: alert
General Hydration: appears well hydrated
Cardiovascular Exam
Cardiovascular Exam: regular rate/rhythm, no murmur and normal peripheral pulses
Pulmonary Exam
Pulmonary Exam: lungs clear and no respiratory distress
Gastrointestinal Exam
Gastrointestinal Exam: soft and other (tender throughout mid abdomen )
Neurological Exam
Neurological Exam: alert and oriented x3
Musculoskeletal Exam
Musculoskeletal Exam: full ROM
Skin Exam
Skin Exam: normal color and warm/dry
Psychiatric Exam
Psychiatric Exam: normal mood/affect
Course
Orders/Labs/Results
Orders:
Orders
04/29/25 00:50
Complete Blood Count/With Diff Urgent
Comprehensive Metabolic Panel Urgent
UA Reflex to Culture [Urinalysis Reflex To Culture] Urgent
Date Specimen was Collected: 04/29/25
Time Specimen was Collected: 00:42
Urine Microscopic Reflex Cult Urgent
Urine Culture Urgent
VIVEK Source: U
Specimen Description:
Date Specimen was Collected: 04/29/25
Time Specimen was Collected: 00:42
04/29/25 01:37
CT Abd/pelvis W Iv Cont Urgent
Comment:
Reason For Exam: abd pain
04/29/25 04:28
Cefdinir [Omnicef] 300 mg PO NOW STA
Abnormal Lab Results
04/29/25
00:50
RBC 4.10 L 10^6/uL
(4.70-6.10)
Hct 38.4 L %
(39.0-52.0)
MCH 32.4 H pg
(27.0-31.0)
Absolute Monos (auto) 0.7 H 10^3/uL
(0.1-0.6)
Chloride 108 H mmol/L
(98-107)
BUN 22 H mg/dl
(9-20)
Creatinine 1.4 H mg/dL
(0.7-1.3)
Glucose 109 H mg/dl
(70-99)
Ur Occult Blood Reflex 4+ A
(Negative)
Leukocyte Esterase Rfl 1+ A
(Negative)
Urine RBC >100 A /HPF
(0-2)
Urine Albumin (Reflex) 3+ A
(Neg - Trace)
04/29/25 00:50
04/29/25 00:50
Vital Signs
Initial and Last Documented VS:
Initial Vital Signs
Temp Pulse Resp BP Pulse Ox
98.1 F 84 16 140/69 93
04/28/25 23:40 04/28/25 23:40 04/28/25 23:40 04/28/25 23:40 04/28/25 23:40
Last Documented Vital Signs
Temp Pulse Resp BP Pulse Ox
98.1 F 75 20 130/76 98
04/28/25 23:40 04/29/25 04:44 04/29/25 04:44 04/29/25 03:13 04/29/25 04:44
Director Of Strategic Alliances consulted with Physician
Director Of Strategic Alliances consulted with physician?: Yes (Kishan )
MDM/Problems Addressed
Differential Diagnosis Includes:
Not limited to UTI hematuria diverticulitis
MDM/Problems Addressed:
As documented patient is a 69-year-old male with past medical history of bladder cancer diverticulitis followed at [facility] presents with hematuria. Patient does have some abdominal discomfort. He denies any nausea vomiting fever chills. He presents
afebrile with a normal white count. He has obvious blood in his urine with greater than 100 RBCs white blood cells obscured. He is not anticoagulated though he does have a history of A-fib because of intermittent hematuria. CAT scan shows
resolution of acute diverticulitis seen previously however there appears to be a mass in the right upper kidney pole this may represent transitional cell carcinoma. I did review this with patient. Case discussed with ED attending. Will discharge
home with outpatient follow with his urologist in addition will cover for possible infection in urine first dose of cefdinir given in the ER.
Chronic conditions affecting care:
Previous diverticulitis A-fib not anticoagulated, hematuria bladder cancer
*Radiology
Radiology exam reviewed: radiology read reviewed
*Pulse Oximetry
SaO2: 93
Oxygen Mode of Delivery: Room air
Patient hypoxic: no
*Critical Care Note
Total Time (30-74mins, 75-104mins- exclusive of procedures): Not Applicable
ED Attending Note
-
Portions of this chart may have been created with voice recognition software.� Occasional wrong word or��sound alike� substitutions may have occurred due to the inherent limitations of voice recognition software.
Discharge Plan
Departure
Patient Disposition: Home (Routine Discharge)
Date of Disposition: 04/29/25
Time of Disposition: 04:19
Patient with high blood pressure during this ER visit?: Yes
Condition: Fair
Covid-19: Not Applicable
Discharge Problem:
Hematuria
Instructions: Blood in the Urine (Hematuria), Adult (DC), BLOOD PRESSURE
Prescriptions:
No Action
escitalopram oxalate 10 mg Tablet
10 mg PO DAILY
atorvastatin 40 mg Tablet
40 mg PO DAILY
ascorbic acid (vitamin C) [Vitamin C] 500 mg Tablet
500 mg PO DAILY
potassium citrate 10 mEq (1,080 mg) Tablet Extended Release
10 meq PO BID
cholecalciferol (vitamin D3) [Vitamin D3] 25 mcg (1,000 unit) Tablet
25 mcg PO DAILY
loratadine [Allerclear] 10 mg Tablet
10 mg PO DAILY
aspirin 81 mg Tablet,Delayed Release (Dr/Ec)
81 mg PO DAILY
diltiazem HCl 240 mg Capsule,Extended Release 24hr
240 mg PO DAILY Qty: 30 0RF
acetaminophen 500 mg Tablet
1,000 mg PO DAILYPRN PRN (Reason: mild pain)
Referrals:
Selwyn Arenas DO [Family Provider, Internal Medicine]
Activity Restrictions/Additional Instructions:
As discussed please follow-up with your urologist at [facility] for reevaluation of hematuria. You will be placed on antibiotic. This medicine is sent to your pharmacy. In addition please follow-up for possible mass in right kidney. Return to the ER
for any worsening of symptoms include increased pain fever chills increased bleeding.
Interventions
Interventions:
*Risk Screen - Suicide Last Done: 04/28/25 23:40
*General Assessment Last Done: 04/29/25 00:35
*Neglect/Abuse Screening Last Done: 04/28/25 23:40
*ED- Fall Risk Assessment Last Done: 04/29/25 00:35
*ED COVID-19 Vaccine History Last Done: 04/29/25 00:35
*Nursing Disposition Last Done: 04/29/25 04:44
ED-Male Genitourinary Assessment Last Done: 04/29/25 04:14
Discharge Date and Time
Discharge Date/Time: 04/29/25 04:45
Print Language: [place]
[2025-04-29 01:37] LABS: Urine Character Cloudy (Clear)
[2025-04-29 02:15] LABS: Urine Red Blood Cell >100 /HPF (0-2); Urine Squamous Cell SEEN /LPF (Few)
[2025-04-29 02:16] LABS: Urine Urothelial Cell SEEN /LPF (FEW)
[2025-04-29 03:13] VITALS: BP 130/76
[2025-04-29] MEDS: OMNICEF 300 MG PO (04:41)
== END 2025-04-29 04:45 | disposition home or self-care (01) ==
LOC: EMR 23:39
PROVIDERS: Nurse Practitioner; EMERGENCY PHYSICIAN Student in an Organized Health Care Education/Training Program; FAMILY PHYSICIAN Internal Medicine
DX: R31.9 Hematuria, unspecified (principal); I48.91 Unspecified atrial fibrillation; E78.00 Pure hypercholesterolemia, unspecified; C67.9 Malignant neoplasm of bladder, unspecified; I10 Essential (primary) hypertension; Z85.51 Personal history of malignant neoplasm of bladder; Z87.442 Personal history of urinary calculi; Z90.49 Acquired absence of other specified parts of digestive tract
CPT/HCPCS: 99284; 74177; 80053; 81003; 81015; 85025; 87086; Q9967

== ENCOUNTER 2025-04-29 14:06 | Inpatient (IN) | payer MEDICARE, OTHER, SELFPAY ==
[2025-04-29] VITALS (9 sets, daily range): BP systolic 114–158; BP diastolic 62–100; BMI 40.0
--- NOTE | 2025-04-29 10:15 | ED.GENMED ---
History of Present Illness
General
Chief Complaint: Urinary Symptoms
Source: patient
Exam Limitations: none
Time Seen by Provider: 04/29/25 10:02
Nursing documentation reviewed up to this point in time: agreed with
History of Present Illness
History of Present Illness:
Note:
CHIEF COMPLAINT(S)
Abdominal pain.
HISTORY OF PRESENT ILLNESS
The patient is a 69-year-old male with a history of diverticulitis, which was noted to be resolving as of a month ago. The patient is currently experiencing abdominal pain, described as being felt internally and tender upon touch. The patient
undergone a computed tomography (CT) scan with contrast, and results are pending to evaluate any changes since the last assessment. The patient reported tenderness in the abdomen without any specific mention of external scarring or sores
contributing to pain. There is consideration for repeating the CT scan based on initial findings to assess any changes in the patients condition.
REVIEW OF SYSTEMS
- Gastrointestinal: Abdominal pain and tenderness.
PHYSICAL EXAM
General: Alert, no acute distress.
Skin: Warm, dry.
Head: Normocephalic, atraumatic.
Neck: Supple, trachea midline.
Eye Ears, nose, mouth and throat: Oral mucosa moist.
Cardiovascular: Normal peripheral perfusion, No edema.
Respiratory: Respirations are non-labored.
Gastrointestinal : Abdomen tender to touch, nondistended
Back: Normal range of motion, Normal alignment.
Musculoskeletal: Normal range of motion, normal strength.
Neurological: Alert and oriented to person, place, time, and situation, No focal neurological deficit observed.
Psychiatric: Cooperative, appropriate mood & affect.
PLAN
- Await CT scan results to assess the current status of the abdomen and diverticulitis.
- Consideration for repeating the CT scan depending on results and the patients symptoms.
- Address pain management, and ensure the patient has a ride home post-evaluation.
DIFFERENTIAL DIAGNOSIS
The Differential Diagnosis includes, in no particular order and is not limited to:
1. Diverticulitis
2. Irritable Bowel Syndrome
3. Appendicitis
4. Gastroenteritis
5. Inflammatory Bowel Disease
6. Colitis
7. Peptic Ulcer Disease
8. Abdominal Adhesions
9. Gastritis
10. Pancreatitis
CARE-UPDATE
04/29/25 - 12:54
The patient presents with a right ureteral calculus and increasing creatinine levels, likely due to obstructive stone. Dr. Ac has been consulted and will schedule the patient for the operating room. A dose of IV ceftriaxone is planned, and the
patient will be admitted under the care of the hospitalists for further management.
Disposition:
SUMMARY OF ENCOUNTER
The patient, a 69-year-old male, presented to the emergency department with abdominal pain and was evaluated for a right ureteral calculus causing obstructive symptoms, alongside increasing creatinine levels suggestive of acute renal failure.
Management included consulting with Dr. Ac for a surgical evaluation, and the patient received a dose of IV ceftriaxone prevent infection prior to the scheduled surgical intervention.
DISPOSITION
Admit
MANAGEMENT OF THE PATIENTS CARE WAS DISCUSSED WITH
Dr. Ac has been consulted to schedule the patient for the operating room as a result of the obstructive stone and increase in creatinine levels. The patient will be admitted under the care of the hospitalists for further management.
PLAN
The patient is to be admitted for surgical intervention to relieve the ureteral obstruction. The plan includes administering IV cefazolin prophylactically and to monitor renal function closely.
INDEPENDENT REVIEW OF LABS AND INTERPRETATION OF TESTS
My independent review of renal function tests indicates increasing creatinine levels, suggestive of acute renal failure due to the obstructive ureteral calculus.
MEDICATION RECONCILIATION
One dose of IV ceftriaxone administered prior to surgical intervention.
MEDICAL DECISION MAKING
- Number and Complexity of Problems Addressed: Chronic conditions affecting care: history of diverticulitis, and acute renal failure due to obstructive uropathy from ureteral calculus. Differential diagnosis considerations include irritable bowel
syndrome and others per initial list.
- Data:
Category 3
Discussion of management with Dr. Ac concerning surgical intervention due to the obstructive stone and increased creatinine levels.
-Risk:
Prescription drug management with the administration of IV ceftriaxone as a prophylactic antibiotic prior to surgery.
DIAGNOSIS
- Ureteral calculus, causing obstruction (ICD-10: N20.0)
- Acute renal failure (ICD-10: N17.9)
Past History
Past History
ED Past Medical History: HTN, Hypercholesterolemia and Other (kidney stones, DDD in cervical and lumbar, bladder cancer, diverticulitis, perforated colon)
ED Past Surgical History: Urological (lithotripsy) and Other (partial colectomy)
Social History
Tobacco: Non-smoker
Alcohol: Occasional
Drug: None
Personal:
Living: with family
Employment: Employed
Family History
Family History: Other (Noncontributory)
Phy Exam
Physical Exam
Physical Exam:
.
Course
Orders/Labs/Results
Orders:
Orders
04/29/25 10:13
CT Abd/pel Without Iv Or Oral Urgent
Comment:
Reason For Exam: right flank pain
IV Insert/Care/Rem.- Treatment PRN
Ketorolac [Toradol] 15 mg IV NOW STA
04/29/25 10:14
Urinalysis Reflex To Culture Urgent
04/29/25 10:45
Complete Blood Count/With Diff Urgent
Comprehensive Metabolic Panel Urgent
04/29/25 10:48
HYDROmorphone [Dilaudid] 1 mg .ROUTE .STK-MED ONE
04/29/25 10:49
HYDROmorphone [Dilaudid] 1 mg IV NOW STA
Abnormal Lab Results
04/29/25
10:45
WBC 12.3 H 10^3/uL
(4.8-10.8)
RBC 4.35 L 10^6/uL
(4.70-6.10)
MCH 31.7 H pg
(27.0-31.0)
Absolute Neuts (auto) 9.9 H 10^3/uL
(1.4-6.5)
Absolute Monos (auto) 0.8 H 10^3/uL
(0.1-0.6)
Neutrophils % 80.5 H %
(42.2-75.2)
Lymphocytes % 11.1 L %
(20.5-51.1)
Chloride 108 H mmol/L
(98-107)
BUN 25 H mg/dl
(9-20)
Creatinine 1.6 H mg/dL
(0.7-1.3)
Glucose 111 H mg/dl
(70-99)
04/29/25 10:45
04/29/25 10:45
Vital Signs
Initial and Last Documented VS:
Initial Vital Signs
Temp Pulse Resp BP Pulse Ox
97.6 F 81 18 156/100 96
04/29/25 09:49 04/29/25 09:49 04/29/25 09:49 04/29/25 09:49 04/29/25 09:49
Last Documented Vital Signs
Temp Pulse Resp BP Pulse Ox
97.6 F 77 18 147/82 96
04/29/25 09:49 04/29/25 11:06 04/29/25 09:49 04/29/25 11:06 04/29/25 11:08
*Pulse Oximetry
SaO2: 96
Oxygen Mode of Delivery: Room air
Patient hypoxic: no
*Critical Care Note
Total Time (30-74mins, 75-104mins- exclusive of procedures): Not Applicable
ED Attending Note
-
Portions of this chart may have been created with voice recognition software.� Occasional wrong word or��sound alike� substitutions may have occurred due to the inherent limitations of voice recognition software.
Discharge Plan
Departure
Patient Disposition: Admit
Date of Disposition: 04/29/25
Time of Disposition: 12:50
Admit to: Med/Surg
Presentation/result/management discussed w/ accepting /: Hospitalist
Discharge Problem:
Calculus of right ureter, Acute kidney failure
Prescriptions:
No Action
escitalopram oxalate 10 mg Tablet
10 mg PO DAILY
atorvastatin 40 mg Tablet
40 mg PO DAILY
acetaminophen [Tylenol] 325 mg Tablet
650 mg PO Q4HPRN PRN (Reason: mild pain)
ascorbic acid (vitamin C) [Vitamin C] 500 mg Tablet
500 mg PO DAILY
potassium citrate 10 mEq (1,080 mg) Tablet Extended Release
10 meq PO TID
cholecalciferol (vitamin D3) [Vitamin D3] 25 mcg (1,000 unit) Tablet
25 mcg PO DAILY
loratadine [Allerclear] 10 mg Tablet
10 mg PO DAILY
aspirin 81 mg Tablet,Delayed Release (Dr/Ec)
81 mg PO DAILY
diltiazem HCl 240 mg Capsule,Extended Release 24hr
240 mg PO DAILY Qty: 30 0RF
amoxicillin-pot clavulanate 875-125 mg tablet
1 tab PO Q12H 8 Days Qty: 16 0RF
cefdinir 300 mg capsule
300 mg PO BID Qty: 14 0RF
Referrals:
Selwyn Arenas DO [Family Provider, Internal Medicine]
Interventions
Interventions:
*Risk Screen - Suicide Last Done: 04/29/25 09:49
*General Assessment Last Done: 04/29/25 09:49
*Neglect/Abuse Screening Last Done: 04/29/25 09:49
*ED- Fall Risk Assessment Last Done: 04/29/25 10:53
*ED COVID-19 Vaccine History Last Done: 04/29/25 10:53
Discharge Date and Time
Print Language: NAURUAN
[2025-04-29] MEDS: TORADOL 15 MG IV (10:42)
[2025-04-29] MEDS: DILAUDID 1 MG IV (10:50)
[2025-04-29 10:51] LABS: Hematocrit 40.4 % (39.0-52.0); Hemoglobin 13.8 g/dL (13.0-18.0); Mean Corp Hgb Conc. 34.2 g/dL (33.0-37.0); Mean Corpuscular Volume 92.9 fL (80.0-94.0); Nucleated Red Blood Cells % 0 % (-); Platelet Count 204 10^3/uL (130-400); Red Cell Dist. Width 13.2 % (11.5-14.5)
[2025-04-29 11:21] LABS: ALT (SGPT) 27 U/L (0-50); AST (SGOT) 24 U/L (17-59); Albumin 4.5 g/dl (3.5-5.0); Alkaline Phosphatase 95 U/L (38-126); Blood Urea Nitrogen 25 mg/dl (9-20); Calcium 9.5 mg/dl (8.4-10.2); Carbon Dioxide 23 mmol/L (22-30); Chloride 108 mmol/L (98-107); Glucose 111 mg/dl (70-99); Potassium 4.2 mmol/L (3.5-5.1); Sodium 139 mmol/L (135-145); Total Protein 7.4 g/dl (6.3-8.2); eGFR 46.93
[2025-04-29] MEDS: ROCEPHIN 1000 MG IV (12:59)
--- NOTE | 2025-04-29 13:16 | CON.MD ---
Consultation - Medical
-
see dictated note
pt with a very complex PMH and past gu hx
from urologic standpoint- prior hx of stones with multiple procedures
in spring 2023 had hematuria and clot retention- taken to OR by dr willis- large bladder tumor volume- underwent partial TURBT
returned for re-attempt at tumor clearing but still had large volume dz
referred to [facility]- had several procedures and then intravesc therapy
recent cysto at beginning of this month by report- no active tumor but lots of 'trauma'
now with 2 ER visits for hematuria and right abd and flank pain
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
pt still uncomfortable but urine now clear
reviewed very difficult nature of his situation- given his pain level wants to proceed to OR for attempted ureteroscopy
risks, benefits, alternatives, disabilities reviewed including inability to find UO and complete procedure
npo/antibx/strain urine- to OR when available
Consultation
-
Date/Time Consultation Requested: 04/29/25 at 1pm
Date/Time Consultation Performed: 04/29/25 at 1pm
Requesting Provider: ER
Performing Provider: Dr Ac
Reason for Consultation: Hematuria and stone
[2025-04-29 13:37] LABS: Urine Character Clear (Clear)
--- NOTE | 2025-04-29 13:43 | HPS.HSE ---
Family Physician
-
Family Physician: Selwyn Arenas
Chief Complaint
-
blood in urine
History of Present Illness
69-year-old male past medical history of nephrolithiasis, bladder cancer status post partial TURBT in 2023 status post several procedures, intravesicular therapy,, diverticulitis, perforated diverticulitis status post colostomy, atrial fibrillation,
CAD, hyperlipidemia, anxiety, obesity, abdominal hernia, presenting with blood in the urine for the past few days with a single clot and right flank pain radiating down to his right abdomen and groin. Denies fevers or chills. Did have some nausea
without vomiting. He has been constipated with small bowel movement this morning.
He denies smoking. He drinks a few glasses of alcohol few times a week.
Medical History
Past Medical History
Past Medical History: Reports Other (nephrolithiasis, bladder cancer status post partial TURBT in 2023 status post several procedures, intravesicular therapy,, diverticulitis, perforated diverticulitis status post colostomy, atrial fibrillation,
CAD, hyperlipidemia, anxiety, obesity, abdominal hernia)
Past Surgical History: Reports Other (Cervical Spine Fusion Lithotripsy for Renal Calculi Colon Resection for perforated diverticulitis with colostomy and subseqeunt reversal TURBT Bilateral Total Knee Replacements)
Social History
Tobacco: Non-smoker
Alcohol: Occasional
Drug: None
Family History
Family History: Not pertinent
Allergies / Home Medications
Allergies reflects when Allergies were last updated in [facility].
Home Medications with original date entered in [facility] [facility]
Allergy/Medication List:
Allergies
Allergy/AdvReac Type Severity Reaction Status Date / Time
No Known Allergies Allergy Unverified 04/29/25 10:19
Home Medications
escitalopram oxalate 10 mg tablet 10 mg PO DAILY Depression 01/24/23
ascorbic acid (vitamin C) 500 mg tablet (Vitamin C) 500 mg PO DAILY Supplement 02/18/24
atorvastatin 40 mg tablet 40 mg PO DAILY High Cholesterol 02/18/24
cholecalciferol (vitamin D3) 25 mcg (1,000 unit) tablet (Vitamin D3) 25 mcg PO DAILY Supplement 02/18/24
potassium citrate 10 mEq (1,080 mg) tablet,extended release 10 meq PO BID Electrolyte Repletion 02/18/24
loratadine 10 mg tablet (Allerclear) 10 mg PO DAILY 04/10/24
aspirin 81 mg tablet,delayed release 81 mg PO DAILY 03/22/25
diltiazem HCl 240 mg capsule,extended release 24 hr 240 mg PO DAILY #30 caps 03/24/25
acetaminophen 500 mg tablet 1,000 mg PO DAILYPRN PRN mild pain 04/29/25
Review of Systems
-
History Source: Patient
A 12 point ROS was completed and negative except as noted: Yes
Constitutional: Reports No Symptoms
EENT: Reports No Symptoms
Respiratory: Reports No Symptoms
Cardiac: Reports No Symptoms
Abdomen/GI: Reports See HPI
: Reports No Symptoms
Musculoskeletal: Reports No Symptoms
Skin: Reports No Symptoms
Neurological: Reports No Symptoms
Endocrine: Reports No Symptoms
Hematologic/Lymphatic: Reports No Symptoms
Psych: Reports No Symptoms
Physical Exam
Vital Signs
Vital Signs
Temp Pulse Resp BP Pulse Ox
97.6 F 77 18 147/82 96
04/29/25 09:49 04/29/25 11:06 04/29/25 09:49 04/29/25 11:06 04/29/25 11:08
Physical Exam
General: Well Developed, Well Nourished and No Apparent Distress
HEENT: NormoCephalic, Moist mucous membranes and Atraumatic
Respiratory: Clear
Cardiac: S1/S2 and Regular Rhythm; No Murmur or Rub
GI: Soft, Non Distended, Normal Bowel Sounds and Tender (RLQ ); No Organomegaly
Rectal: Deferred by Provider
Musculoskeletal: No Clubbing, No Cyanosis and No Edema
Skin: No Rash
Neuro: Nonfocal/grossly intact
Laboratory Results
-
04/29/25 10:45
04/29/25 10:45
Laboratory Results
Total Bilirubin 0.8 mg/dl (0.2-1.3) 04/29/25 10:45
AST 24 U/L (17-59) 04/29/25 10:45
ALT 27 U/L (0-50) 04/29/25 10:45
Alkaline Phosphatase 95 U/L (38-126) 04/29/25 10:45
Data Reviewed
-
Lab Data: Labs Reviewed by me
Old Records: Reviewed
Impression/Plan
-
IMPRESSION:
PLAN:
# Obstructive distal right ureteral calculi with moderate right hydroureteronephrosis
-Leukocytosis
-Urinalysis shows greater than 100 RBC,
-CT abdomen pelvis shows moderate right hydroureteronephrosis secondary to obstructing distal right ureteral calculi, 1.9 cm intraluminal mass in right upper pole intrarenal calyx, interval increase in severe right perinephric and periureteral
edema, moderate chronic left renal disease,
- N.p.o.
- IV fluids
-Strain urine
- Ceftriaxone
-Zofran, ketorolac, Dilaudid as needed
- Urology to attempt uteroscopy today
# Acute kidney injury likely postobstructive
- Monitor with IV fluids
History of bladder cancer status post partial TURBT in 2023 status post intravesicular therapy
History of perforated diverticulitis status post colostomy
Paroxysmal atrial fibrillation
- Continue diltiazem
CAD
- Continue aspirin, statin
Anxiety
- Continue Lexapro
Obesity
Abdominal hernia
Full code
DVT prophylaxis�SCDs
N.p.o.
[2025-04-29 13:46] LABS: Urine Red Blood Cell 26-30 /HPF (0-2); Urine White Cell 0-2 /HPF (0-5)
--- NOTE | 2025-04-29 14:03 | CM ---
Cm reviewed chart and met with pt bedside in ED. Lives with his in multistory home, has first floor half BA, second floor BR/full BA with walk in shower and bench.
Independent in ADLs, personal care and ambulation at baseline. 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
Confirms prescription coverage.
Hx VN 2023 after knee replacement surgery, no hx SNF.
PCP: Selwyn Arenas
Pharmacy: [facility] [phone] in [place]
Pt requesting to have records sent to his wheelchair van driver Casie Youssef at /[place] and Sandra Lopez at [facility]. Informed him CM does not handle this but I would document the information.
Anticipate discharge home, CM will continue to follow for any discharge planning needs.
[2025-04-29] MEDS: DILAUDID 0.5 MG IV ×2 (14:31→20:47)
[2025-04-29] MEDS: ROCEPHIN IV (15:57)
[2025-04-29] MEDS: NSS IV (15:57)
--- NOTE | 2025-04-29 17:45 | PTCARENOTE ---
Pt received from ED and walked to bed from stretcher. VSS. AAOx3. Pt is NPO @this time. Pt received pain medication in ED prior to transfer and complains of 4/10 pain in abdomen/groin on admission, stating he feels much better than before. PACU
called for report. CHG wipe down. arrived @bedside to collect pt's belongings. Pt taken to OR for surgery. POC tera.
[2025-04-29] MEDS: LEVAQUIN 50 IV (17:48)
--- NOTE | 2025-04-29 19:22 | W.IMMPOSTOP ---
Surgical Immed Post Op Note
-
Primary Surgeon:
jazmine
Assisting Surgeon:
Pre-op Diagnosis:
right ureteral stone
Post-op Diagnosis:
right ureteral stone/right renal bleed
Procedure Performed:
cysto/ureteral dilation/right ureteroscopy- laser litho-stone extraction and stent
Anesthesia Type:
gen
Specimen / Cultures:
stone
Estimated Blood Loss:
2cc
Complications:
none
Operative Findings:
sig amount of blood in bladder- irrigated out- no active bleeding or tumor in bladder- blood appeared to be coming from right UO
right UO dilated- scope introduced- stone fragmented and extracted
ureteroscopy passed up into prox ureter judr below UPJ- clot and bleeding-
stent placed with subsequent efflux of high pressure blood urine
3 way bautista placed and light cbi
--- NOTE | 2025-04-29 19:32 | SUR.PHASEI ---
Rec'd drowsy, oriented x 3 by RN reassured, cbi with cl light pink drainage
--- NOTE | 2025-04-29 19:35 | SUR.PHASEI ---
More alert, dozing
--- NOTE | 2025-04-29 19:47 | SUR.PHASEI ---
Girish, vss, CBI with very light pink clear urine, Dr Ac in
[2025-04-29] MEDS: UROCIT-K 10 MEQ PO (20:47)
--- NOTE | 2025-04-29 20:50 | PTCARENOTE ---
Addendum entered by Margarita Shoemaker RN 04/30/25 05:50:
Per provider order, CBI was to be discontinued at midnight. BENDER MACHINE notified d/t continued punch-colored urine output. New orders received to maintain CBI overnight and notify urology in the morning if urine remains punch-colored. Plan of care ongoing.
Original Note:
Patient returned from PACU alert and oriented x4. He reports a burning sensation at the penis. CBI in place, draining punch-colored urine. Pain medication administered, see MAR. CBI maintained and patent. Plan of care ongoing.
[2025-04-29] MEDS: VALIUM INJECTION 5 MG IV (22:09)
[2025-04-30 00:12] VITALS: BMI 39.7
--- NOTE | 2025-04-30 00:25 | W.PN.UPDATE ---
Update Note
Progress Note Update
0000 urology ordered to stop CBI at midnight, but urine remains punch colored. Will keep CBI running until more clear. If more clear in am may dc cbi but if remains punch colored let urology know for further instruction
[2025-04-30] MEDS: MELATONIN 5 MG PO (02:36)
[2025-04-30] MEDS: NSS 1000 IV ×2 (03:41→12:36)
[2025-04-30 06:38] LABS: Hematocrit 37.2 % (39.0-52.0); Hemoglobin 12.5 g/dL (13.0-18.0); Mean Corp Hgb Conc. 33.6 g/dL (33.0-37.0); Mean Corpuscular Volume 94.4 fL (80.0-94.0); Nucleated Red Blood Cells % 0 % (-); Platelet Count 189 10^3/uL (130-400); Red Cell Dist. Width 13.2 % (11.5-14.5)
[2025-04-30] MEDS: DILAUDID 0.5 MG IV ×4 (06:43→21:29)
[2025-04-30 06:57] LABS: AST (SGOT) 21 U/L (17-59); Albumin 4.3 g/dl (3.5-5.0); Alkaline Phosphatase 73 U/L (38-126); Blood Urea Nitrogen 22 mg/dl (9-20); Calcium 9.0 mg/dl (8.4-10.2); Carbon Dioxide 19 mmol/L (22-30); Chloride 106 mmol/L (98-107); Estimated Creatinine Clearance 68 ml/min; Glucose 191 mg/dl (70-99); Potassium 4.7 mmol/L (3.5-5.1); Sodium 137 mmol/L (135-145); Total Protein 6.9 g/dl (6.3-8.2); eGFR 55.09
[2025-04-30 07:00] VITALS: BP 149/85
[2025-04-30 07:08] LABS: ALT (SGPT) 32 U/L (0-50)
--- NOTE | 2025-04-30 07:16 | W.PN.URO.CBU ---
Today's Communication / Plan
-
UOOB
regular diet
wean cbi as able
flomax
Assessment / Plan
-
hx of bladder cancer
right ureteral stones- s/p ureteroscopy/laser litho and stent
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
continue cbi today- monitor hematuria and hgb
hopeful bautista removal for TOV tomorrow- pt will continue to have hematuria- but if urinating then would be ok for outpt management
if bleeding does not resolve- would need to coordinate with [facility]
Diagnosis
-
Date of Service: April 30, 2025
-
Patient Diagnosis:
hematuria
hx of bladder cancer
obstructing right ureteral stones
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
Post Op Day:
04/29 - right ureteroscopy/laser litho and stent
Subjective
-
pt comfortable
hgb stable
urine alternative bewteen clear and dark red on cbi
Objective
-
Vital Signs
Temp Pulse Resp BP Pulse Ox
97.9 F 73 18 142/78 93
04/29/25 23:00 04/29/25 23:00 04/29/25 23:00 04/29/25 23:00 04/29/25 23:00
Intake and Output
04/29/25 04/30/25 05/01/25
06:59 06:59 06:59
Intake Total 50 / 50
Output Total 3825 / 3825
Balance -3775 / -3775
Intake:
Oral fluids 0 / 0
IV fluids (Total) 50 / 50
normosol 50 / 50
Output:
Urine, Voided 225 / 225
True Urine Output from CBI 3600 / 3600
Laboratory Results
04/30/25 05:51
04/30/25 05:51
Review of Systems
-
Constitutional: Fatigue
Respiratory: No Symptoms
Cardiac: No Symptoms
Abdomen/GI: No Symptoms
: Other (bautista)
Physical Exam
-
General - no acute distress
Abdomen - soft, non-tender
Genitalia - [address]- on moderate drip cbi- urine clear in tube
[2025-04-30] MEDS: UROCIT-K 10 MEQ PO ×2 (09:19→21:25)
[2025-04-30] MEDS: LEXAPRO 10 MG PO (09:19)
[2025-04-30] MEDS: CARDIZEM CD 240 MG PO (09:19)
[2025-04-30] MEDS: ASPIR LOW (ENTERIC COATED) 81 MG PO (09:19)
[2025-04-30] MEDS: VITAMIN C 500 MG PO (09:20)
[2025-04-30] MEDS: LIPITOR 40 MG PO (09:20)
[2025-04-30] MEDS: FLOMAX 0.4 MG PO (09:20)
[2025-04-30] MEDS: VITAMIN D3 (cholecalciferol) 25 MCG PO (09:20)
[2025-04-30] MEDS: CLARITIN 10 MG PO (09:20)
[2025-04-30] MEDS: STERILE WATER FOR INJECTION 10 ML IV (12:37)
[2025-04-30] MEDS: ROCEPHIN 1000 MG IV (12:37)
[2025-04-30 15:00] VITALS: BP 140/78
--- NOTE | 2025-04-30 16:12 | CM ---
Spoke with patient in room .
He has CBI running.
Cardiology involved.
Offered VN at discharge He declined need.
His Radha will drive him home at discharge.
PLAN Home no needs
--- NOTE | 2025-04-30 18:04 | W.PN.HOSP.TC ---
Today's Communication/Plan
-
CBI.
Empiric antibiotics
Monitor hemoglobin
Assessment / Plan
Assessment / Plan
Impression:
Gross hematuria
Bladder CA.
- Status post TURBT and intravesicular chemotherapy
Other conditions:
Paroxysmal atrial fibrillation/flutter
Not on anticoagulation due to recurrent hematuria.
History of sigmoid diverticulitis
Dyslipidemia
Abdominal wall hernia
Obesity with BMI of 39
Anxiety
Plan
Hematuria
Bladder/renal CA
CT of the abdomen pelvis 04/29:
1. MODERATE RIGHT HYDROURETERONEPHROSIS secondary to obstructing distal right ureteral calculi.
2. Delayed excretion of contrast material from the right kidney with enhancement of the right renal parenchyma and opacification of the entire right ureter to the level of the obstruction.
3. 1.9 cm intraluminal mass in a right upper pole intrarenal calyx. Diagnostic possibilities are (1) UROTHELIAL CARCINOMA, (2) a complex cyst, or (3) infection.
4. Interval increase in severe right perinephric and periureteral edema.
5. Moderate chronic left renal disease.
6. Severe calcific atherosclerotic plaque in the abdominal aorta.
7. Severe colonic diverticulosis.
8. Moderate-sized anterior abdominal wall hernia containing nonobstructed transverse colon.
9. Previous sigmoidectomy.
10. Mild hepatosplenomegaly.
11. Severe pancreatic atrophy (lipomatosis).
Status post cystoscopy 04/29.
Intraoperative findings: Obstructive distal right ureteral stone. Right renal bleed from right renal mass
Continue CBI
Empiric antibiotics pending final cultures
Follow hemoglobin closely
Urology input appreciated
Paroxysmal atrial fibrillation/flutter
Echo 03/30 LVEF 55-60%. Mild aortic regurgitation. Pulmonary artery pressure 40 mmHg
Continue rate/rhythm control with diltiazem
Not on anticoagulation prior to presentation given recurrent hematuria
Anticipated Discharge: 24 - 48 hours
Subjective/Interval History
-
Date of Service: April 30, 2025
Objective Data
-
Labs:
Laboratory Results
04/30/25
05:51
WBC 7.8
Hgb 12.5 L
Hct 37.2 L
Plt Count 189
Sodium 137
Potassium 4.7
Chloride 106
Carbon Dioxide 19 L
BUN 22 H
Creatinine 1.4 H
Glucose 191 H
Calcium 9.0
Total Bilirubin 0.6
AST 21
ALT 32
Alkaline Phosphatase 73
Vital Signs:
Vital Signs
Temp Pulse Resp BP Pulse Ox
97.6 F 84 20 140/78 96
04/30/25 15:00 04/30/25 15:00 04/30/25 15:00 04/30/25 15:00 04/30/25 15:00
I&O
04/29/25 04/30/25 05/01/25
06:59 06:59 06:59
Intake Total 50 / 50 3400 / 3400
Output Total 1325 / 1325 1800 / 1800
Balance -1275 / -1275 1600 / 1600
Physical Exam
-
General: Well Developed and No Apparent Distress
HEENT: Normocephalic, Atraumatic and Moist Mucous Membranes
Respiratory: Clear to Auscultation
Cardiac: Regular Rhythm and S1/S2; Negative Murmur, Rub or Gallop
GI: Soft, Nontender, Nondistended and Normal Bowel Sounds; Negative Organomegaly
Rectal: Deferred by Provider
Genito-urinary: [place]ral[place]
Musculoskeletal: No Clubbing, No Cyanosis and No Edema
Skin: Negative Rash
Neuro: Nonfocal/Grossly Intact
[2025-04-30 18:43] LABS: Hepatitis C Antibody Negative (Negative)
[2025-04-30 23:48] VITALS: BP 152/77
[2025-05-01] MEDS: MELATONIN 5 MG PO (00:40)
[2025-05-01 05:55] LABS: Hematocrit 34.8 % (39.0-52.0); Hemoglobin 11.7 g/dL (13.0-18.0); Mean Corp Hgb Conc. 33.6 g/dL (33.0-37.0); Mean Corpuscular Volume 96.9 fL (80.0-94.0); Nucleated Red Blood Cells % 0 % (-); Platelet Count 181 10^3/uL (130-400); Red Cell Dist. Width 13.3 % (11.5-14.5)
[2025-05-01 06:22] LABS: Blood Urea Nitrogen 22 mg/dl (9-20); Calcium 8.8 mg/dl (8.4-10.2); Carbon Dioxide 20 mmol/L (22-30); Chloride 109 mmol/L (98-107); Estimated Creatinine Clearance 95 ml/min; Glucose 152 mg/dl (70-99); Potassium 4.5 mmol/L (3.5-5.1); Sodium 137 mmol/L (135-145); eGFR > 60.00
[2025-05-01 07:00] VITALS: BP 138/92
--- NOTE | 2025-05-01 07:55 | W.PN.URO.CBU ---
Today's Communication / Plan
-
bautista removal for TOV
Assessment / Plan
-
hx of bladder cancer
right ureteral stones- s/p ureteroscopy/laser litho and stent
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
bautista removed for TOV- if pvr minimal and no sig clots- would plan for discharge with flomax and pain meds
will contact [facility] to expedite outpt f/u- if rebleeds- may need to discuss transfer
discussed with pt/ and nursing
Diagnosis
-
Date of Service: May 01, 2025
-
Patient Diagnosis:
hematuria
hx of bladder cancer
obstructing right ureteral stones
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
Post Op Day:
04/29 - right ureteroscopy/laser litho and stent
Subjective
-
pt has been stable
urine light red off cbi since midnight- irrigated- clear and no clots
hgb down a slight amount
cr normal
Objective
-
Vital Signs
Temp Pulse Resp BP Pulse Ox
97.8 F 75 20 138/92 98
05/01/25 07:00 05/01/25 07:00 05/01/25 07:00 05/01/25 07:00 05/01/25 07:00
Intake and Output
04/30/25 05/01/25 05/02/25
06:59 06:59 06:59
Intake Total 50 / 50 5440 / 5440
Output Total 1325 / 1325 1800 / 1800 800 / 800
Balance -1275 / -1275 3640 / 3640 -800 / -800
Intake:
Oral fluids 0 / 0 4440 / 4440
IV fluids (Total) 50 / 50 1000 / 1000
normosol 50 / 50
Output:
Urine, Voided 225 / 225
True Urine Output from [facility] 1100 / 1100 1800 / 1800 800 / 800
Laboratory Results
05/01/25 05:33
05/01/25 05:33
Review of Systems
-
Constitutional: Fatigue
Respiratory: No Symptoms
Cardiac: No Symptoms
Abdomen/GI: Abdominal Pain (mild)
Physical Exam
-
General - no acute distress
Abdomen - soft, non-tender
Genitalia - bautista irrigated and then removed
[2025-05-01 08:26] LABS: Glucose - Point of Care 136 mg/dl (70-99)
[2025-05-01] MEDS: VITAMIN D3 (cholecalciferol) 25 MCG PO (08:42)
[2025-05-01] MEDS: VITAMIN C 500 MG PO (08:42)
[2025-05-01] MEDS: LEXAPRO 10 MG PO (08:42)
[2025-05-01] MEDS: MILK OF MAGNESIA 30 ML PO (08:42)
[2025-05-01] MEDS: UROCIT-K 10 MEQ PO (08:42)
[2025-05-01] MEDS: ASPIR LOW (ENTERIC COATED) 81 MG PO (08:42)
[2025-05-01] MEDS: LIPITOR 40 MG PO (08:42)
[2025-05-01] MEDS: FLOMAX 0.4 MG PO (08:42)
[2025-05-01] MEDS: CLARITIN 10 MG PO (08:42)
[2025-05-01] MEDS: CARDIZEM CD 240 MG PO (08:46)
[2025-05-01] MEDS: ROCEPHIN 1000 MG IV (11:52)
[2025-05-01] MEDS: STERILE WATER FOR INJECTION 10 ML IV (11:52)
--- NOTE | 2025-05-01 13:41 | W.DS.TRANS ---
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
-
Discharge Instructions:
Discharge Diagnosis/Procedures Gross hematuria
Renal mass
Diet Regular
Instructions:
Stand-Alone Forms:
Changes to Home Medications: Yes
Discharge Medications:
DC Medications w/original date entered in [facility]
escitalopram oxalate 10 mg tablet 10 mg PO DAILY Depression 01/24/23
ascorbic acid (vitamin C) 500 mg tablet (Vitamin C) 500 mg PO DAILY Supplement 02/18/24
atorvastatin 40 mg tablet 40 mg PO DAILY High Cholesterol 02/18/24
cholecalciferol (vitamin D3) 25 mcg (1,000 unit) tablet (Vitamin D3) 25 mcg PO DAILY Supplement 02/18/24
potassium citrate 10 mEq (1,080 mg) tablet,extended release 10 meq PO BID Electrolyte Repletion 02/18/24
loratadine 10 mg tablet (Allerclear) 10 mg PO DAILY Allergies 04/10/24
aspirin 81 mg tablet,delayed release 81 mg PO DAILY Blood Clot Prevention/Tx 03/22/25
Held on 05/01/25. Instructions: Resume on 05/08/25.
diltiazem HCl 240 mg capsule,extended release 24 hr 240 mg PO DAILY #30 caps 03/24/25
acetaminophen 500 mg tablet 1,000 mg PO DAILYPRN PRN mild pain 04/29/25
oxycodone 5 mg tablet 5 mg PO Q12H PRN Pain #20 tabs 05/01/25
polyethylene glycol 3350 17 gram/dose oral powder (Miralax) 4 g PO DAILY #238 grams 05/01/25
tamsulosin 0.4 mg capsule 0.4 mg PO DAILY #30 caps 05/01/25
Home Medication Changes
Flomax, Roxicodone added
Pending Results: No
[2025-05-01 14:22] VITALS: BP 133/76
--- NOTE | 2025-05-01 16:27 | CM ---
MD entered order for discharge.
Spoke with patient Offered VN he declined need.
IMM reviewed with him . Pt agrees with discharge.. IMM on chart.
His Radha will drive him home at discharge.
PLAN Home no needs
== END 2025-05-01 14:42 | disposition home or self-care (01) | DRG 657 ==
LOC: 3 WEST ACU 14:06
PROVIDERS: ADMITTING PHYSICIAN Hospitalist; ATTENDING PHYSICIAN Internal Medicine; CONSULT PHYSICIAN Specialist; EMERGENCY PHYSICIAN Emergency Medicine; FAMILY PHYSICIAN Internal Medicine
PROC: 0TC68ZZ Extirpation of Matter from Right Ureter, Via Natural or Artificial Opening Endoscopic (ICD-10-PCS; 2025-04-29)
PROC: 0T768DZ Dilation of Right Ureter with Intraluminal Device, Via Natural or Artificial Opening Endoscopic (ICD-10-PCS; 2025-04-29)
DX: C67.9 Malignant neoplasm of bladder, unspecified (principal); I48.92 Unspecified atrial flutter; N13.2 Hydronephrosis with renal and ureteral calculous obstruction; N17.9 Acute kidney failure, unspecified; N13.1 Hydronephrosis with ureteral stricture, not elsewhere classified; E78.00 Pure hypercholesterolemia, unspecified; I10 Essential (primary) hypertension; K59.00 Constipation, unspecified; I48.0 Paroxysmal atrial fibrillation; I25.10 Atherosclerotic heart disease of native coronary artery without angina pectoris; I70.0 Atherosclerosis of aorta; K57.30 Diverticulosis of large intestine without perforation or abscess without bleeding; F41.9 Anxiety disorder, unspecified; K43.9 Ventral hernia without obstruction or gangrene; R16.2 Hepatomegaly with splenomegaly, not elsewhere classified; K86.89 Other specified diseases of pancreas; I35.1 Nonrheumatic aortic (valve) insufficiency; R31.0 Gross hematuria; E66.9 Obesity, unspecified; Z96.653 Presence of artificial knee joint, bilateral; Z87.442 Personal history of urinary calculi; Z87.19 Personal history of other diseases of the digestive system; Z90.49 Acquired absence of other specified parts of digestive tract; Z79.82 Long term (current) use of aspirin; Z79.01 Long term (current) use of anticoagulants; Z68.39 Body mass index [BMI] 39.0-39.9, adult; Z98.1 Arthrodesis status; Z92.21 Personal history of antineoplastic chemotherapy
CPT/HCPCS: 74018; 74176; 74177; 76000; 80048; 80053; 81003; 81015; 82365; 82962; 85025; 86803; 87086; 96374; 96375; 99285; C1894; C2617; Q9967

== ENCOUNTER 2025-09-03 08:50 | Inpatient (IN) | payer MEDICARE, OTHER, SELFPAY ==
[2025-08-31 15:46] VITALS: BP 188/102
[2025-08-31 16:47] LABS: Hematocrit 29.2 % (39.0-52.0); Hemoglobin 9.9 g/dL (13.0-18.0); Mean Corp Hgb Conc. 33.9 g/dL (33.0-37.0); Mean Corpuscular Volume 94.5 fL (80.0-94.0); Nucleated Red Blood Cells % 0 % (-); Platelet Count 320 10^3/uL (130-400); Red Cell Dist. Width 14.8 % (11.5-14.5)
[2025-08-31 16:52] VITALS: BMI 38.7
[2025-08-31 16:59] LABS: ALT (SGPT) 31 U/L (0-50); AST (SGOT) 26 U/L (17-59); Albumin 3.9 g/dl (3.5-5.0); Alkaline Phosphatase 91 U/L (38-126); Blood Urea Nitrogen 33 mg/dl (9-20); Calcium 10.2 mg/dl (8.4-10.2); Carbon Dioxide 24 mmol/L (22-30); Chloride 100 mmol/L (98-107); Estimated Creatinine Clearance 29 ml/min; Glucose 114 mg/dl (70-99); Lipase 16 U/L (23-300); Potassium 4.6 mmol/L (3.5-5.1); Sodium 133 mmol/L (135-145); Total Protein 7.4 g/dl (6.3-8.2); eGFR 20.43
[2025-08-31 17:05] VITALS: BP 132/80
--- NOTE | 2025-08-31 17:12 | ED.GENMED ---
History of Present Illness
<PEGGY Nick - Last Filed: 08/31/25 20:23>
General
Chief Complaint: Abdominal Symptoms
Source: patient and spouse
Exam Limitations: none
Time Seen by Provider: 08/31/25 16:28
Nursing documentation reviewed up to this point in time: agreed with
History of Present Illness
History of Present Illness:
Patient is a 69-year-old male past with a history of A-fib hypertension hyperlipidemia diverticulitis bladder cancer with recent kidney and ureter cancer. Patient recently had a right nephrectomy right ureter and part of the right bladder removed
August 15 at [facility]. He was discharged 8 days ago. Surgery was performed by Dr. Gandhi and Dr. Werner.
Patient was in for checkup 2 days ago August 29 and at that time was vomiting multiple times. He has been intermittent vomiting since and did vomit last several hours ago. He also has had intermittent diarrhea constipation. He did have small
amount of diarrhea today. Patient had a low-grade temperature 99 yesterday as per . Patient does complain of abdominal pain. He also complains of nausea despite Zofran. no other sick contacts.
Past History
<PEGGY Nick - Last Filed: 08/31/25 20:23>
Past History
ED Past Medical History: HTN, Hypercholesterolemia and Other (kidney stones, DDD in cervical and lumbar, bladder cancer, diverticulitis, perforated colon)
ED Past Surgical History: Urological (lithotripsy) and Other (partial colectomy)
Social History
Tobacco: Non-smoker
Alcohol: Occasional
Drug: None
Personal:
Living: with family
Employment: Employed
Family History
Family History: Other (Noncontributory)
Phy Exam
<PEGGY Nick - Last Filed: 08/31/25 20:23>
General Physical Exam
General Presentation: no apparent distress
General age: appears stated age
General Skin: warm and dry
General Habitus: normal
General Mental: alert
General Hydration: dry mucous membranes
Cardiovascular Exam
Cardiovascular Exam: regular rate/rhythm, no murmur and normal peripheral pulses
Pulmonary Exam
Pulmonary Exam: lungs clear and no respiratory distress
Gastrointestinal Exam
Gastrointestinal Exam: soft and other (+ blayne in place no dehiscence [address] draining)
Neurological Exam
Neurological Exam: alert and oriented x3
Musculoskeletal Exam
Musculoskeletal Exam: full ROM
Skin Exam
Skin Exam: normal color
Psychiatric Exam
Psychiatric Exam: normal mood/affect
Course
<PEGGY Nick - Last Filed: 08/31/25 20:23>
Orders/Labs/Results
Orders:
Orders
08/31/25 16:21
Complete Blood Count/With Diff Urgent
Comprehensive Metabolic Panel Urgent
Lipase Urgent
Urinalysis Reflex To Culture Urgent
Date Specimen was Collected: 08/31/25
Time Specimen was Collected: 16:03
Urine Microscopic Reflex Cult Urgent
INF RAPID [Influenza A+B Rapid Molecular] Urgent
VIVEK Source: Nasal Swab
Specimen Description:
08/31/25 17:14
0.9% Sodium Chloride 1000 ml [Nss] 1,000 ml IV BOLUS
Ondansetron Injectable [Zofran] 4 mg IV NOW STA
08/31/25 17:29
Lactic Acid Q4H
Comment: CANCEL 2nd LACTIC ACID IF 1st LACTIC ACID IS LESS THAN 2
Blood Culture Q30M
VIVEK Source: Blood/Venous
Specimen Description:
08/31/25 17:32
CT Abd/pel Without Iv Or Oral Urgent
Comment:
Reason For Exam: right nephrectomy nausea/vomiting/diarrhea pain
08/31/25 17:33
HYDROmorphone [Dilaudid] 1 mg IV NOW STA
08/31/25 17:51
Blood Culture Q30M
VIVEK Source: Blood/Venous
Specimen Description:
Abnormal Lab Results
08/31/25
16:21
WBC 14.7 H 10^3/uL
(4.8-10.8)
RBC 3.09 L 10^6/uL
(4.70-6.10)
Hgb 9.9 L g/dL
(13.0-18.0)
Hct 29.2 L %
(39.0-52.0)
MCV 94.5 H fL
(80.0-94.0)
MCH 32.0 H pg
(27.0-31.0)
RDW 14.8 H %
(11.5-14.5)
Abs Immat Gran (auto) 0.1 H 10^3/uL
(0-0.05)
Absolute Neuts (auto) 11.3 H 10^3/uL
(1.4-6.5)
Absolute Monos (auto) 0.9 H 10^3/uL
(0.1-0.6)
Immature Gran % 0.6 H %
(0-0.5)
Neutrophils % 77.0 H %
(42.2-75.2)
Lymphocytes % 11.9 L %
(20.5-51.1)
Sodium 133 L mmol/L
(135-145)
BUN 33 H mg/dl
(9-20)
Creatinine 3.2 H mg/dL
(0.7-1.3)
Glucose 114 H mg/dl
(70-99)
Lipase 16 L U/L
(23-300)
Urine RBC 3-6 A /HPF
(0-2)
Urine Bacteria (Reflex) Few A
(Negative)
Urine Albumin (Reflex) 2+ A
(Neg - Trace)
08/31/25 16:21
08/31/25 16:21
Vital Signs
Initial and Last Documented VS:
Initial Vital Signs
Temp Pulse Resp BP Pulse Ox
98.1 F 65 18 188/102 91
08/31/25 15:46 08/31/25 15:46 08/31/25 15:46 08/31/25 15:46 08/31/25 15:46
Last Documented Vital Signs
Temp Pulse Resp BP Pulse Ox
98.6 F 73 18 126/77 95
08/31/25 17:05 08/31/25 20:19 08/31/25 20:19 08/31/25 20:19 08/31/25 20:22
Cold Saw Operator consulted with Physician
Cold Saw Operator consulted with physician?: Yes
Name of Physician Consulted: Catina
<Michelle Dominique MD - Last Filed: 08/31/25 20:39>
Orders/Labs/Results
Orders:
Orders
08/31/25 16:21
Complete Blood Count/With Diff Urgent
Comprehensive Metabolic Panel Urgent
Lipase Urgent
Urinalysis Reflex To Culture Urgent
Date Specimen was Collected: 08/31/25
Time Specimen was Collected: 16:03
Urine Microscopic Reflex Cult Urgent
INF RAPID [Influenza A+B Rapid Molecular] Urgent
VIVEK Source: Nasal Swab
Specimen Description:
08/31/25 17:14
0.9% Sodium Chloride 1000 ml [Nss] 1,000 ml IV BOLUS
Ondansetron Injectable [Zofran] 4 mg IV NOW STA
08/31/25 17:29
Lactic Acid Q4H
Comment: CANCEL 2nd LACTIC ACID IF 1st LACTIC ACID IS LESS THAN 2
Blood Culture Q30M
VIVEK Source: Blood/Venous
Specimen Description:
08/31/25 17:32
CT Abd/pel Without Iv Or Oral Urgent
Comment:
Reason For Exam: right nephrectomy nausea/vomiting/diarrhea pain
08/31/25 17:33
HYDROmorphone [Dilaudid] 1 mg IV NOW STA
08/31/25 17:51
Blood Culture Q30M
VIVEK Source: Blood/Venous
Specimen Description:
Abnormal Lab Results
08/31/25
16:21
WBC 14.7 H 10^3/uL
(4.8-10.8)
RBC 3.09 L 10^6/uL
(4.70-6.10)
Hgb 9.9 L g/dL
(13.0-18.0)
Hct 29.2 L %
(39.0-52.0)
MCV 94.5 H fL
(80.0-94.0)
MCH 32.0 H pg
(27.0-31.0)
RDW 14.8 H %
(11.5-14.5)
Abs Immat Gran (auto) 0.1 H 10^3/uL
(0-0.05)
Absolute Neuts (auto) 11.3 H 10^3/uL
(1.4-6.5)
Absolute Monos (auto) 0.9 H 10^3/uL
(0.1-0.6)
Immature Gran % 0.6 H %
(0-0.5)
Neutrophils % 77.0 H %
(42.2-75.2)
Lymphocytes % 11.9 L %
(20.5-51.1)
Sodium 133 L mmol/L
(135-145)
BUN 33 H mg/dl
(9-20)
Creatinine 3.2 H mg/dL
(0.7-1.3)
Glucose 114 H mg/dl
(70-99)
Lipase 16 L U/L
(23-300)
Urine RBC 3-6 A /HPF
(0-2)
Urine Bacteria (Reflex) Few A
(Negative)
Urine Albumin (Reflex) 2+ A
(Neg - Trace)
08/31/25 16:21
08/31/25 16:21
Vital Signs
Initial and Last Documented VS:
Initial Vital Signs
Temp Pulse Resp BP Pulse Ox
98.1 F 65 18 188/102 91
08/31/25 15:46 08/31/25 15:46 08/31/25 15:46 08/31/25 15:46 08/31/25 15:46
Last Documented Vital Signs
Temp Pulse Resp BP Pulse Ox
98.6 F 73 18 126/77 95
08/31/25 17:05 08/31/25 20:19 08/31/25 20:19 08/31/25 20:19 08/31/25 20:22
<PEGGY Nick - Last Filed: 08/31/25 20:23>
MDM/Problems Addressed
Differential Diagnosis Includes:
Not limited to dehydration viral syndrome, colitis enteritis
MDM/Problems Addressed:
As documented patient is status post right nephrectomy removal of right ureter and part of bladder on August 15. He started vomiting having diarrhea August 29 2 days ago and presents very weak, some abdominal pain no fevers. He presents awake
alert no acute distress afebrile white count very minimally elevated at 14.7 hemoglobin stable at 9.9 patient's BUN however is elevated at 32 with a creatinine of 3.2. was able to bring up patient's portal and his creatinine has been running
in the 3.0 -3.20 dilma range CAT scan done today negative for any fluid collection no evidence of bowel obstruction possible enteritis. Other postsurgical changes noted. Patient will require admission for fluids. He has not vomited here after being
given Zofran.
Chronic conditions affecting care:
Renal cell carcinoma recent removal of right kidney ureter and partial bladder
<PEGGY Nick - Last Filed: 08/31/25 20:23>
*Radiology
Radiology exam reviewed: radiology read reviewed
*Pulse Oximetry
SaO2: 95
Oxygen Mode of Delivery: Room air
Patient hypoxic: no
*Critical Care Note
Total Time (30-74mins, 75-104mins- exclusive of procedures): Not Applicable
ED Attending Note
<PEGGY Nick - Last Filed: 08/31/25 20:23>
-
Portions of this chart may have been created with voice recognition software.� Occasional wrong word or��sound alike� substitutions may have occurred due to the inherent limitations of voice recognition software.
<Michelle Dominique MD - Last Filed: 08/31/25 20:39>
ED Attending Note
Patient seen and examined by attending physician: Yes
I performed the substantive portion of visit, reviewed & personally made and approve the management plan that is documented in note by myself or JEREMIAS.: Yes
ED Attending Note:
Patient appears slightly pale and uncomfortable but appears nontoxic overall. Is fully alert and conversational. Breathing comfortably. Abdomen is soft throughout. [address]
Discharge Plan
Departure
Patient Disposition: Admit
Date of Disposition: 08/31/25
Time of Disposition: 20:22
Admit to: Telemetry
Admit to doctor: hospitalist
Presentation/result/management discussed w/ accepting MD/DO: Hospitalist
Patient with high blood pressure during this ER visit?: Yes
Covid-19: Not Applicable
Discharge Problem:
Nausea and vomiting, Diarrhea
Prescriptions:
No Action
escitalopram oxalate 10 mg Tablet
10 mg PO DAILY
atorvastatin 40 mg Tablet
40 mg PO DAILY
ascorbic acid (vitamin C) [Vitamin C] 500 mg Tablet
500 mg PO DAILY
potassium citrate 10 mEq (1,080 mg) Tablet Extended Release
10 meq PO BID
cholecalciferol (vitamin D3) [Vitamin D3] 25 mcg (1,000 unit) Tablet
25 mcg PO DAILY
loratadine [Allerclear] 10 mg Tablet
10 mg PO DAILY
aspirin 81 mg Tablet,Delayed Release (Dr/Ec)
81 mg PO DAILY
diltiazem HCl 240 mg Capsule,Extended Release 24hr
240 mg PO DAILY Qty: 30 0RF
acetaminophen 500 mg Tablet
1,000 mg PO DAILYPRN PRN (Reason: mild pain)
tamsulosin 0.4 mg Capsule
0.4 mg PO DAILY Qty: 30 0RF
oxycodone 5 mg tablet
5 mg PO Q12H PRN (Reason: Pain) Qty: 20 0RF
polyethylene glycol 3350 [Miralax] 17 gram/dose powder
4 g PO DAILY Qty: 238 0RF
Referrals:
Selwyn Arenas DO [Family Provider, Internal Medicine]
Interventions
Interventions:
*General Assessment Last Done: 08/31/25 15:46
*Neglect/Abuse Screening Last Done: 08/31/25 16:55
*ED COVID-19 Vaccine History Last Done: 08/31/25 15:46
*ED Influenza Vaccine History Last Done: 08/31/25 15:46
*Risk Screen - Suicide (C-SSRS) Last Done: 08/31/25 15:46
BD-Ichwzn-Vqqezdbatv Assessment Last Done: 08/31/25 18:23
Discharge Date and Time
Print Language: IRISH
[2025-08-31 17:17] LABS: Urine Character Clear (Clear)
[2025-08-31] MEDS: NSS 1000 IV (17:27)
[2025-08-31 17:34] LABS: Urine Squamous Cell >30 /LPF (Few)
[2025-08-31] MEDS: ZOFRAN 4 MG IV (17:35)
[2025-08-31] MEDS: DILAUDID 1 MG IV (17:35)
[2025-08-31 20:19] VITALS: BP 126/77
--- NOTE | 2025-08-31 20:59 | HPS.HSE ---
Family Physician
-
Family Physician: Selwyn Arenas
Chief Complaint
-
Nausea vomiting and diarrhea
History of Present Illness
This is a 69-year-old male with past medical history significant for atrial fibrillation on anticoagulation, history of bladder cancer status post TURBT, more recent diagnosis of nephrolithiasis and right kidney mass known to be kidney cancer status
post right nephrectomy, removal of right ureter and part of bladder on August 15 who presents to the emergency department for ongoing nausea and vomiting and diarrhea.
Patient reports that he had a checkup on August 29 and was having vomiting at that time. Since then he has had nausea vomiting and diarrhea. Patient denies any fevers or chills. Denies any flank pain. He denies any dysuria frequency urgency.
Patient is concerned about his abdominal symptoms because he has been told that he must be careful to avoid trauma or anything that can cause the lbayne over his incision site to loosen or affect his EDISON tube placement. He is not supposed to pull
on the tube he is also concerned that his symptoms may be secondary to metastasis to his other kidney.
He has been taking acetaminophen at home. He was taking aspirin but that was discontinued. He also stopped taking oxycodone. It is specifically requested coming to get hydrated and get some rest so that he can follow-up with his postsurgical
appointment on Wednesday.
In the emergency department he was afebrile, blood pressure was 126/77 with a pulse of 73 and oxygen saturation of 95% on room air.
He is white count was 14.7, hemoglobin 9.9 and platelet 320. His electrolytes were stable. BUN/creatinine were 32 and 3.2. His baseline creatinine is currently around 3. LFTs were unremarkable, lactic acid was normal. Lipase was negative. UA
showed small blood but otherwise unremarkable.
CT of the abdomen pelvis shows no acute findings, there were nonspecific small bowel gas pattern that could reflect her possible dysmotility or ileus or possibly underlying enteritis. No evidence of small bowel obstruction. There is diverticulosis
without diverticulitis. Possible cystitis. Her right lateral pelvic masslike soft tissue attenuation felt to be postsurgical.
Medical History
Past Medical History
Past Medical History: Reports Other (nephrolithiasis, bladder cancer status post partial TURBT in 2023 status post several procedures, intravesicular therapy,, diverticulitis, perforated diverticulitis status post colostomy, atrial fibrillation,
CAD, hyperlipidemia, anxiety, obesity, abdominal hernia)
Past Surgical History: Reports Other (Cervical Spine Fusion Lithotripsy for Renal Calculi Colon Resection for perforated diverticulitis with colostomy and subseqeunt reversal TURBT Bilateral Total Knee Replacements)
Social History
Tobacco: Non-smoker
Alcohol: Occasional
Drug: None
Personal:
Living: With Family
Family History
Family History: Not pertinent
Allergies / Home Medications
Allergies reflects when Allergies were last updated in [employer].
Home Medications with original date entered in [employer]
Allergy/Medication List:
Allergies
Allergy/AdvReac Type Severity Reaction Status Date / Time
No Known Allergies Allergy Unverified 04/29/25 10:19
Home Medications
escitalopram oxalate 10 mg tablet 10 mg PO DAILY Depression 01/24/23
ascorbic acid (vitamin C) 500 mg tablet (Vitamin C) 500 mg PO DAILY Supplement 02/18/24
atorvastatin 40 mg tablet 40 mg PO DAILY High Cholesterol 02/18/24
cholecalciferol (vitamin D3) 25 mcg (1,000 unit) tablet (Vitamin D3) 25 mcg PO DAILY Supplement 02/18/24
potassium citrate 10 mEq (1,080 mg) tablet,extended release 10 meq PO BID Electrolyte Repletion 02/18/24
loratadine 10 mg tablet (Allerclear) 10 mg PO DAILY 04/10/24
aspirin 81 mg tablet,delayed release 81 mg PO DAILY 03/22/25
diltiazem HCl 240 mg capsule,extended release 24 hr 240 mg PO DAILY #30 caps 03/24/25
acetaminophen 500 mg tablet 1,000 mg PO DAILYPRN PRN mild pain 04/29/25
Review of Systems
-
History Source: Patient
A 12 point ROS was completed and negative except as noted: Yes
Constitutional: Reports No Symptoms
EENT: Reports No Symptoms
Respiratory: Reports No Symptoms
Cardiac: Reports No Symptoms
Abdomen/GI: Reports See HPI
: Reports No Symptoms
Musculoskeletal: Reports No Symptoms
Skin: Reports No Symptoms
Neurological: Reports No Symptoms
Endocrine: Reports No Symptoms
Hematologic/Lymphatic: Reports No Symptoms
Psych: Reports No Symptoms
Physical Exam
Vital Signs
Vital Signs
Temp Pulse Resp BP Pulse Ox
98.6 F 73 18 126/77 95
08/31/25 17:05 08/31/25 20:19 08/31/25 20:19 08/31/25 20:19 08/31/25 20:22
Physical Exam
General: Well Developed, Well Nourished and No Apparent Distress
HEENT: NormoCephalic, Moist mucous membranes and Atraumatic
Respiratory: Clear
Cardiac: S1/S2 and Regular Rhythm; No Murmur or Rub
GI: Soft, Non Tender, Normal Bowel Sounds, Distended, No Hepatosplenomegaly and Other (To drain in EDISON tubes draining serosanguineous fluids, midline lower abdominal incision clean dry and intact without signs of cellulitis.); No Organomegaly
Rectal: Deferred by Provider
Musculoskeletal: No Clubbing, No Cyanosis and No Edema
Skin: No Rash
Neuro: AO x 3 and Nonfocal/grossly intact
Psych: Anxious
Laboratory Results
-
08/31/25 16:21
08/31/25 16:21
Laboratory Results
Lactic Acid Cancelled 08/31/25 21:15
Total Bilirubin 0.5 mg/dl (0.2-1.3) 08/31/25 16:21
AST 26 U/L (17-59) 08/31/25 16:21
ALT 31 U/L (0-50) 08/31/25 16:21
Alkaline Phosphatase 91 U/L (38-126) 08/31/25 16:21
Lipase 16 U/L (23-300) L 08/31/25 16:21
Data Reviewed
-
CT Scan: Report Reviewed by me
Lab Data: Labs Reviewed by me
Old Records: Reviewed
Impression/Plan
-
IMPRESSION:
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
additional/partial bladder resection on August 15 who presents to the emergency department with nausea vomiting and diarrhea and concern for your GI symptoms affecting the incision and EDISON drains. His UA is unremarkable. He does have a mild
leukocytosis to 14 of unclear etiology. There is no fevers or chills. There are no abdominal tenderness guarding or rebound. Is without significant diarrhea. His hemoglobin is stable. His creatinine is similar to his postsurgical values at 3.2
(it was 3.0). CT scan shows possible enteritis but is negative for any fluid collection. No evidence of for bowel obstruction. Cannot rule out early ileus. He has been taking Zofran at home but he feels is not working.
PLAN:
Nausea vomiting�postoperative slowing of the bowel versus ileus versus enteritis.
� Admit to MedSurg
� Continue with antiemetics
� Clear liquid diet for now
� Serial examinations for bowel sounds, bowel movement to assure no ileus
� Continue with pain control using Dilaudid as per his surgeon
� IV hydration
� If symptoms continue to persist, consider GI consultation
- low dose alprazolam prn
BRANDEN�patient with permanently reduced renal function status post surgery. His electrolytes BUN and creatinine are stable.
� With nephrotoxins
� Renal dose medications
�
Continue hydration for now
Atrial fibrillation�patient is not on any anticoagulation
� Continue diltiazem
DVT prophylaxis�heparin subcu
CODE STATUS�full code
[2025-08-31 22:10] LABS: Magnesium 2.0 mg/dl (1.6-2.3)
[2025-08-31 22:11] LABS: COVID-19 Antigen Negative (Negative)
[2025-08-31 23:15] VITALS: BP 145/88; BMI 37.7
[2025-08-31] MEDS: HEPARIN 5000 UNITS SC (23:26)
[2025-08-31] MEDS: LR 1000 IV (23:26)
[2025-08-31] MEDS: DILAUDID 0.5 MG IV (23:39)
[2025-08-31 23:47] VITALS: BMI 37.7
--- NOTE | 2025-09-01 01:55 | PTCARENOTE ---
Pt received from ED via stretcher w/ belongings; Medsurg orders, VSS. AAOx4, x1 assist to bathoom. X2 EDISON drains- Rt/ Lt lower abd. Abdominal midline incision approximated, blayne intact, AMBER. x4 healed puncture sites. Abdomen is soft, round,
tender, +BS. pt c/o abd pain throughout. IV Dilaudid administered per order. IVF admin per order. PMH and medications reviewed by this RN and patient. Plan or care discussed. call davalos within reach.
[2025-09-01] MEDS: DILAUDID 0.5 MG IV ×5 (03:43→22:24)
[2025-09-01] MEDS: XANAX 0.25 MG PO (04:37)
[2025-09-01 07:40] VITALS: BP 125/74
[2025-09-01 08:31] LABS: Hematocrit 26.7 % (39.0-52.0); Hemoglobin 8.8 g/dL (13.0-18.0); Mean Corp Hgb Conc. 33.0 g/dL (33.0-37.0); Mean Corpuscular Volume 96.4 fL (80.0-94.0); Platelet Count 261 10^3/uL (130-400); Red Cell Dist. Width 14.9 % (11.5-14.5)
[2025-09-01] MEDS: HEPARIN 5000 UNITS SC ×3 (09:01→23:00)
[2025-09-01] MEDS: LEXAPRO 10 MG PO (09:03)
[2025-09-01] MEDS: LIPITOR 40 MG PO (09:03)
[2025-09-01] MEDS: CARDIZEM CD 240 MG PO (09:03)
[2025-09-01 09:05] LABS: Blood Urea Nitrogen 31 mg/dl (9-20); Calcium 8.8 mg/dl (8.4-10.2); Carbon Dioxide 24 mmol/L (22-30); Chloride 101 mmol/L (98-107); Estimated Creatinine Clearance 33 ml/min; Glucose 93 mg/dl (70-99); Magnesium 2.0 mg/dl (1.6-2.3); Potassium 4.8 mmol/L (3.5-5.1); Sodium 133 mmol/L (135-145); eGFR 23.98
--- NOTE | 2025-09-01 10:32 | W.PN.HOSP.TC ---
Today's Communication/Plan
-
see plan
Assessment / Plan
Assessment / Plan
Gen: NAD, AAOx3.
Eyes: EOMI, PERRLA, no scleral icterus.
Neck: supple.
CV: RRR, +S1/S2, no m/r/g.
Resp: CTAB, no rales, wheezes, or rhonchi.
Abd: +BS, soft, NT, ND
Skin: No rashes.
Neuro: CN 2-12 intact, non-focal.
Psych: Normal mood and affect.
CT A/P:
Postsurgical changes, as described.
No anterior abdominal wall focal fluid collection or abscess. No residual or recurrent hernia identified.
Nonspecific small bowel gas pattern, with hazy soft tissue attenuation of the peritoneum and small bowel mesentery. This could reflect dysmotility/ileus, or possibly underlying enteritis. No definitive evidence to suggest small bowel obstruction.
Clinical correlation recommended.
Diverticulosis without acute diverticulitis.
Minor cholelithiasis. No CT evidence of acute cholecystitis.
Possible cystitis. Clinical correlation recommended.
Right lateral pelvic masslike soft tissue attenuation. Possibly postsurgical in nature. Cannot exclude adenopathy in the proper clinical setting.
Nausea and vomiting:
-s/p 08/15/25 R nephrectomy and ureteral resection as well as additional/partial bladder resection
-no obstruction on imaging above
-afebrile, minimal leukocytosis that is stable and likely not reflective of infection
-currently on clears, advance to full liquids and ADAT
-pain control
-bowel regimen
BRANDEN:
-Cr was 3.0 post-op, 3.2 on admission, now 2.8 after IVFs
Other problems:
Hyponatremia, mild
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
Obesity due to excess calories
FULL/Heparin
Anticipated Discharge: Within 24 hours
Subjective/Interval History
-
Date of Service: September 01, 2025
No new complaints.
Objective Data
-
Labs:
Laboratory Results
09/01/25
07:36
WBC 13.0 H
Hgb 8.8 L
Hct 26.7 L
Plt Count 261
Sodium 133 L
Potassium 4.8
Chloride 101
Carbon Dioxide 24
BUN 31 H
Creatinine 2.8 H
Glucose 93
Calcium 8.8
Vital Signs:
Vital Signs
Temp Pulse Resp BP Pulse Ox
98.0 F 86 16 125/74 96
09/01/25 07:40 09/01/25 07:40 09/01/25 07:40 09/01/25 07:40 09/01/25 07:40
I&O
08/31/25 09/01/25 09/02/25
06:59 06:59 06:59
Intake Total 800 / 800
Balance 800 / 800
--- NOTE | 2025-09-01 11:17 | CM ---
Patient seen bedside, initial assessment completed. Patient is a 69-year-old male with past medical history significant for atrial fibrillation on anticoagulation, history of bladder cancer status post TURBT, more recent diagnosis of nephrolithiasis
and right kidney mass known to be kidney cancer status post right nephrectomy, removal of right ureter and part of bladder on August 15 who presents to the emergency department for ongoing nausea and vomiting and diarrhea.
Patient resides w/ spouse in a multilevel home, has first floor half BA, second floor BR/full BA with walk in shower and bench. Independent in ADLs, personal care and ambulation at baseline. 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
drive at this time.
Address, point of contact and insurance verified
PCP: Selwyn Arenas
Pharmacy: [facility]
Patient admitted under obs services. CLEMENTE form verbally reviewed, copy provided, copy on chart
Plan: Home, no needs
[2025-09-01] MEDS: SENOKOT 17.2 MG PO ×2 (11:38→20:19)
[2025-09-01] MEDS: MIRALAX 17 GRAMS PO (11:38)
[2025-09-01 15:12] VITALS: BP 126/66
[2025-09-01] MEDS: MIRALAX PO ×2 (20:19→20:25)
[2025-09-01] MEDS: ZOFRAN 4 MG IV (20:26)
[2025-09-01] MEDS: LR 500 IV (21:37)
[2025-09-01 23:00] VITALS: BP 112/49
[2025-09-02] MEDS: DILAUDID 0.25 MG IV (01:02)
[2025-09-02] MEDS: TYLENOL 650 MG PO (01:38)
[2025-09-02 02:45] VITALS: BP 132/72
[2025-09-02] MEDS: ZOFRAN 4 MG IV (02:46)
[2025-09-02] MEDS: DILAUDID 0.5 MG IV ×3 (02:46→15:58)
[2025-09-02 07:35] VITALS: BP 130/75
--- NOTE | 2025-09-02 08:17 | W.PN.HOSP.TC ---
Today's Communication/Plan
-
see plan
Assessment / Plan
Assessment / Plan
Gen: NAD, AAOx3.
Eyes: EOMI, PERRLA, no scleral icterus.
Neck: supple.
CV: RRR, +S1/S2, no m/r/g.
Resp: CTAB, no rales, wheezes, or rhonchi.
Abd: +BS, soft, NT, ND
Skin: No rashes.
Neuro: CN 2-12 intact, non-focal.
Psych: Normal mood and affect.
CT A/P:
Postsurgical changes, as described.
No anterior abdominal wall focal fluid collection or abscess. No residual or recurrent hernia identified.
Nonspecific small bowel gas pattern, with hazy soft tissue attenuation of the peritoneum and small bowel mesentery. This could reflect dysmotility/ileus, or possibly underlying enteritis. No definitive evidence to suggest small bowel obstruction.
Clinical correlation recommended.
Diverticulosis without acute diverticulitis.
Minor cholelithiasis. No CT evidence of acute cholecystitis.
Possible cystitis. Clinical correlation recommended.
Right lateral pelvic masslike soft tissue attenuation. Possibly postsurgical in nature. Cannot exclude adenopathy in the proper clinical setting.
Nausea and vomiting:
-s/p 08/15/25 R nephrectomy and ureteral resection as well as additional/partial bladder resection
-no obstruction on imaging above
-afebrile, minimal leukocytosis that is stable and likely not reflective of infection
-advanced to full liquids and LR but had dry heaving with LR diet
-pain control
-bowel regimen (states one small BM but 'nothing in there')
-c/s surgery for opinion
-check OBST series
BRANDEN:
-Cr was 3.0 post-op, 3.2 on admission, now 2.7 after IVFs
-cont IVFs
Other problems:
Hyponatremia, mild
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
Obesity due to excess calories
FULL/Heparin
Anticipated Discharge: Within 24 hours
Subjective/Interval History
-
Date of Service: September 02, 2025
Pt states that he tolerated full liquids yesterday but when he tried LR diet had had dry heaving. States chronic abd pain and intermittent nausea.
Objective Data
-
Labs:
Laboratory Results
09/02/25
07:19
WBC Pending
Hgb Pending
Hct Pending
Plt Count Pending
Sodium Pending
Potassium Pending
Chloride Pending
Carbon Dioxide Pending
BUN Pending
Creatinine Pending
Glucose Pending
Calcium Pending
Vital Signs:
Vital Signs
Temp Pulse Resp BP Pulse Ox
97.8 F 78 14 130/75 94
09/02/25 07:35 09/02/25 07:35 09/02/25 07:35 09/02/25 07:35 09/02/25 07:35
I&O
09/01/25 09/02/25 09/03/25
06:59 06:59 06:59
Intake Total 800 / 800 490 / 490
Output Total 95 / 95
Balance 800 / 800 395 / 395
[2025-09-02 08:22] LABS: Hematocrit 25.7 % (39.0-52.0); Hemoglobin 8.9 g/dL (13.0-18.0); Mean Corp Hgb Conc. 34.6 g/dL (33.0-37.0); Mean Corpuscular Volume 93.5 fL (80.0-94.0); Platelet Count 221 10^3/uL (130-400); Red Cell Dist. Width 14.6 % (11.5-14.5)
[2025-09-02 08:50] LABS: Blood Urea Nitrogen 27 mg/dl (9-20); Calcium 8.7 mg/dl (8.4-10.2); Carbon Dioxide 21 mmol/L (22-30); Chloride 102 mmol/L (98-107); Estimated Creatinine Clearance 34 ml/min; Glucose 93 mg/dl (70-99); Potassium 4.7 mmol/L (3.5-5.1); Sodium 132 mmol/L (135-145); eGFR 25.05
[2025-09-02] MEDS: CARDIZEM CD 240 MG PO (09:23)
[2025-09-02] MEDS: HEPARIN 5000 UNITS SC ×3 (09:23→23:31)
[2025-09-02] MEDS: SENOKOT 17.2 MG PO (09:24)
[2025-09-02] MEDS: MIRALAX 17 GRAMS PO (09:24)
[2025-09-02] MEDS: LEXAPRO 10 MG PO (09:24)
[2025-09-02] MEDS: LIPITOR 40 MG PO (09:24)
[2025-09-02] MEDS: LR IV ×4 (09:27→19:54)
--- NOTE | 2025-09-02 12:19 | VATNOTE ---
SHAINAE significant swelling on AM rounds, PIV d/c'd, fluids discontinued, US ordered.
--- NOTE | 2025-09-02 12:42 | CON.GS ---
Consultation
-
Date/Time Consultation Performed: 09/02/25 1130
Medical History
-
Chief Complaint: n/v/pain
History of Present Illness:
Mr Rodriguez is a 69 yo male with a h/o diverticulitis s/p Michelle's in 2005 with colostomy reversal, melanoma s/p wide excision, bladder cancer s/p multiple TURBT's and renal ca now s/p chemo this fall and right nephroureterectomy with portion of the
bladder taken with hernia repair on 08/15/25 at [facility] with Dr. Gandhi and Dr. Werner. He has [address] to the bilateral lower abdomen (both with SSF) as well as blayne still present to ex lap incision. The incisions is without
significant erythema, no drainage noted. Lap sites with intact glue. He notes that post operatively, he had a long hospital course and was in the ICU for hypoxia early in his stay. He has not really been eating well since surgery but was able to
keep enough PO intake down that he was able to be discharged to home. He has had challenges with pain control at home and was taking regular ibuprofen. He had had ongoing nausea and vomiting. His labs have been followed as an outpatient, and he
notes as his renal function was abnormal he was directed to present to the ED for evaluation/hydration. On exam, his abdomen is soft, minimally distended with incisional and lower abdominal tenderness near drain site. He has had dry heaving with
dietary advancements but notes he has been passing flatus. He was diarrhea at home but is unsure if this has continued.
Past Medical History
Past Medical History: Arrhythmias (afib (not on AC)), CAD, Cancer (bladder and renal), HTN, Hypercholesterolemia, Psychiatric (anxiety) and Other (nephrolithiasis, obesity)
Past Surgical History: Bowel Resection (Michelle's in 2005 s/p reversal of colostomy), Hernia Repair (at time of of nephroureterectomy ), Orthopedic (BL TKR) and Urological (multiple TURBTs, Right nephroureterectomy 08/15/2025)
Social History
Tobacco: Non-Smoker
Alcohol: None
Living: With Family
Family History
Family History: Reviewed & Not Pertinent
Allergies / Home Medications
Allergy/AdvReac Type Severity Reaction Status Date / Time
house dust Allergy CHRONIC Verified 08/31/25 22:51
SINUSITIS
mold Allergy CHRONIC Verified 08/31/25 22:51
SINUSITIS
�Medication �Instructions �Recorded �Confirmed �Type
escitalopram oxalate 10 mg tablet 10 mg PO DAILY Depression 01/24/23 09/01/25 History
ascorbic acid (vitamin C) 500 mg 500 mg PO DAILY Supplement 02/18/24 04/29/25 History
tablet (Vitamin C)
atorvastatin 40 mg tablet 40 mg PO DAILY High Cholesterol 02/18/24 09/01/25 History
cholecalciferol (vitamin D3) 25 25 mcg PO DAILY Supplement 02/18/24 04/29/25 History
mcg (1,000 unit) tablet (Vitamin
D3)
potassium citrate 10 mEq (1,080 10 meq PO BID Electrolyte Repletion 02/18/24 04/29/25 History
mg) tablet,extended release
loratadine 10 mg tablet 10 mg PO DAILY Allergies 04/10/24 04/29/25 History
(Allerclear)
aspirin 81 mg tablet,delayed 81 mg PO DAILY Blood Clot 03/22/25 04/29/25 History
release Prevention/Tx
Held on 05/01/25.
Instructions: Resume on
05/08/25.
diltiazem HCl 240 mg 240 mg PO DAILY #30 caps 03/24/25 09/01/25 Rx
capsule,extended release 24 hr
acetaminophen 500 mg tablet 1,000 mg PO DAILYPRN PRN mild pain 04/29/25 08/31/25 History
tamsulosin 0.4 mg capsule 0.4 mg PO DAILY #30 caps 05/01/25 Rx
Gas-X PO PRN gas 08/31/25 History
magnesium PO BID Supplement 08/31/25 History
ondansetron 4 mg disintegrating 4 mg PO Q8H PRN nausea 08/31/25 History
tablet
polyethylene glycol 3350 17 4 g PO DAILY PRN constipation 08/31/25 08/31/25 History
gram/dose oral powder (Miralax)
Review of Systems
-
History Source: Patient
All other systems: Negative unless noted
A 10 point review of systems was completed, and was negative except as per HPI.
Physical Exam
Vital Signs
Temp Pulse Resp BP Pulse Ox
97.8 F 78 14 130/75 94
09/02/25 07:35 09/02/25 09:23 09/02/25 07:35 09/02/25 09:23 09/02/25 07:35
09/01/25 09/02/25 09/03/25
06:59 06:59 06:59
Actual Weight 119.295 kg
Body Mass Index (BMI) 37.7
Lab Results
09/02/25 07:19
09/02/25 07:19
WBC 12.2 10^3/uL (4.8-10.8) H 09/02/25 07:19
Hgb 8.9 g/dL (13.0-18.0) L 09/02/25 07:19
Hct 25.7 % (39.0-52.0) L 09/02/25 07:19
Plt Count 221 10^3/uL (130-400) 09/02/25 07:19
Abs Immat Gran (auto) 0.1 10^3/uL (0-0.05) H 08/31/25 16:21
Neutrophils % 77.0 % (42.2-75.2) H 08/31/25 16:21
Physical Exam
General: Well Developed
HEENT: Moist Mucous Membranes
Cardiac: Peripheral Edema (3+ LUE edema)
GI: Soft, Tender (to incisions, lower abd), Distended (mild) and Obese
Skin: Other (midline incision with intact blayne, no significant erythema, no drainage. EDISON's x2 to BLLQ with ssf)
Neuro: Awake and AO x 3
Data Reviewed
-
Radiology: Image Personally Visualized and interpreted, Report Reviewed by me, Discussed with Nurse and Discussed with Patient
CT Scan: Image Personally Visualized and interpreted, Report Reviewed by me, Discussed with Physician, Discussed with Nurse, Discussed with Patient and Discussed with Family
Labs: Labs Reviewed by me, Discussed with Physician and Discussed with Patient
Old Records: Reviewed
Assessment / Plan
-
Mr Rodriguez is a 69 yo male with a h/o diverticulitis s/p Michelle's in 2005 with colostomy reversal, melanoma s/p wide excision, bladder cancer s/p multiple TURBT's and renal ca now s/p right nephroureterectomy with portion of the bladder taken with
hernia repair on 08/15/25 at [facility] with Dr. Gandhi and Dr. Werner. Presenting with n/v/d with ongoing pain with increased NSAID use. BRANDEN present on arrival. Cr with some mild improvement. CT imaging of abd/pelvis. No obstruction. Possible mild
ileus. Soft tissue attenuation in the right pelvis, ?post operative surgical changes. No abscess/collection. Obstruction series today with mild ileus. Afebrile. VSS. EDISON's with minimal SSF, Incisions without evidence infection. Suspect ileus vs
uremia driving ongoing nausea.
Plan:
Reviewed case with urology, formal consult pending
Clears as tolerated
Analgesics as needed, encouraged decreasing narcotic use. Will schedule Ofirmev x24h. No NSAIDs given elevated Cr.
Hydration with IVF
Trend labs
d/c oral bowel regimen
Medical management as per primary team
[2025-09-02] MEDS: OFIRMEV 100 IV ×3 (13:00→23:30)
[2025-09-02] MEDS: LR 500 IV (13:03)
[2025-09-02] MEDS: REGLAN 10 MG IV (13:21)
--- NOTE | 2025-09-02 13:33 | W.PN.UPDATE ---
Update Note
Progress Note Update
Patient seen at request of CRS and Hospitalist - known to me.
Diagnosed initially w/ NMIBC in 02/2024 - had multifocal (>20 tumors) disease noted during TURBT.
Required multiple TURBTs ([facility] followed by [facility] downtown) - seeing Dr. Sibley.
Completed intravesical chemotherapy @[facility] early 2024.
04/2025: s/p stent placement - noted to have right upper tract tumors on CT imaging (no diseased noted on prior CTs 5397-8114).
06/2025: s/p 2 cycles of cisplatin + gemcitabine.
BRANDEN noted w/ Cr rise to 3.0 (per spouse).
08/15/25: s/p robotic right radical NephU + repair of large abdominal wall hernia(s).
Currently admitted w/ abdominal pain, N/V, BRANDEN, dehydration.
exam: voiding clear urine, EDISON drains x2 in lower abdomen (minimal serous drainage), blayne c/d/i over infraumbilical incision, no cellulitis/drainage/erythema.
CT imaging reviewed => expected post-operative findings s/p right NephU
Recommendations:
- clear liquids and IVF hydration
- Reglan if indicated (d/w Hospitalist)
- avoid NSAIDs given solitary kidney and BRANDEN - tylenol + opioid analgesia
- Trend Cr (downtrending since admission)
- Urology will plan for blayne + drain (x2) removal in 24-48 hrs prior to discharge (originally scheduled for OP visit @[facility] 09/04)
- Will discuss plan of care w/ patient's urologist @[facility] (Dr. Sibley)
D/w pt and spouse.
D/w Hospitalist.
D/w CRS.
--- NOTE | 2025-09-02 14:00 | PTCARENOTE ---
Dr Barrera request transfer pt to [address] [place] [address]/[place]. Admissions and nursing die cast supervisor notified - waiting for bed.
[2025-09-02 15:45] VITALS: BP 136/79
[2025-09-02 23:23] VITALS: BP 110/57
[2025-09-02] MEDS: LR 1000 IV (23:35)
[2025-09-03] MEDS: OFIRMEV 100 IV (05:07)
[2025-09-03 07:00] VITALS: BP 143/81
[2025-09-03] MEDS: HEPARIN 5000 UNITS SC ×3 (07:57→23:51)
[2025-09-03] MEDS: LR 1000 IV ×2 (07:57→18:06)
[2025-09-03] MEDS: CARDIZEM CD 240 MG PO (07:58)
[2025-09-03] MEDS: LEXAPRO 10 MG PO (07:58)
[2025-09-03] MEDS: LIPITOR 40 MG PO (07:58)
[2025-09-03 09:03] LABS: Hematocrit 27.0 % (39.0-52.0); Hemoglobin 9.2 g/dL (13.0-18.0); Mean Corp Hgb Conc. 34.1 g/dL (33.0-37.0); Mean Corpuscular Volume 94.7 fL (80.0-94.0); Platelet Count 291 10^3/uL (130-400); Red Cell Dist. Width 14.6 % (11.5-14.5)
[2025-09-03 09:26] LABS: Blood Urea Nitrogen 23 mg/dl (9-20); Calcium 8.8 mg/dl (8.4-10.2); Carbon Dioxide 21 mmol/L (22-30); Chloride 101 mmol/L (98-107); Estimated Creatinine Clearance 36 ml/min; Glucose 98 mg/dl (70-99); Potassium 4.8 mmol/L (3.5-5.1); Sodium 131 mmol/L (135-145); eGFR 26.21
[2025-09-03] MEDS: XANAX 0.25 MG PO (10:50)
[2025-09-03] MEDS: DILAUDID 0.5 MG IV ×3 (10:50→23:51)
--- NOTE | 2025-09-03 10:51 | W.PN.CRS1 ---
Today's Communication / Plan
-
advance to low residue
no plans for surgery
medical management per primary team/urology
Assessment/Plan
-
69 yo male with a h/o diverticulitis s/p Michelle's in 2005 with colostomy reversal, melanoma s/p wide excision, bladder cancer s/p multiple TURBT's and renal ca now s/p right nephroureterectomy with portion of the bladder taken with hernia repair
on 08/15/25 at [facility] with Dr. Gandhi and Dr. Werner. Presenting with n/v/d with ongoing pain with increased NSAID use. BRANDEN present on arrival. Cr with some mild improvement. CT imaging of abd/pelvis. No obstruction. Possible mild ileus.
Plan:
-No plans for surgery
-Advance to a low residue diet - told patient to choose foods that are low in fiber and to eat slowly.
-Minimize narcotics
-Hydration with IVF
-Trend labs
-d/c oral bowel regimen
-Urology to remove blayne and drain 24-48 hours prior to d/c
-Medical management as per primary team/urology
Subjective Data
Subjective Data
Date of Service: September 03, 2025
Patient states he has abdominal pain overnight. He is really not that hungry. Denies nausea or vomiting. He is currently sitting up in a chair and has no complaints.
Objective Data
-
Vital Signs
Temp Pulse Resp BP Pulse Ox
97.9 F 77 18 138/69 92
09/03/25 07:00 09/03/25 07:58 09/03/25 07:00 09/03/25 07:58 09/03/25 07:00
Intake & Output
09/02/25 09/03/25 09/04/25
06:59 06:59 06:59
Intake Total 490 / 490 2225 / 2225
Output Total 95 / 95 135 / 135
Balance 395 / 395 2089
Intake:
Oral fluids 490 / 490 600 / 600
IV fluids (Total) 1425 / 142
IV piggybacks 200 / 200
Output:
Drain Output (Total) 135 / 135
Left Lower Abdomen Fazal- 115 / 115
[place] B
Right Lower Abdomen A
Other:
Number of approximated SMALL 6
amounts of urine
Number of approximated MODERATE 1 4
amounts of urine
Number of approximated LARGE 1
amounts of urine
Lab Results
09/03/25 08:14
09/03/25 08:14
Physical Exam
-
General: No Acute Distress and AOx3
Abdomen: Soft, Distended (mild), Non Tender and Other (2 JPs - b/l lower quadrants, serous output)
Skin: Warm and Dry
Incision: Clear, Dry, Intact (with blayne)
[2025-09-03] MEDS: TYLENOL PO (11:21)
--- NOTE | 2025-09-03 12:40 | W.PN.UPDATE ---
Update Note
Progress Note Update
D/w patient's primary urologist (Dr. Sibley @[facility]) re: staple and JPs x2 removal - originally scheduled @[facility] (downtown) tomorrow 09/04.
Given current hospitalization and to minimize travel, confirmed w/ [facility] this AM re: removal locally.
Cr downtrending - of note, patient has solitary left kidney s/p robotic right radical NephU 08/15 @[facility]
Plan:
- Will plan for staple and drain (x2) removal at bedside tomorrow AM - confirmed w/ spouse
- Patient will require F/U w/ Dr. Hutson to review pathology and treatment plan after discharge
[2025-09-03] MEDS: LR IV (12:44)
[2025-09-03 15:00] VITALS: BP 132/93
--- NOTE | 2025-09-03 15:39 | W.PN.HOSP.TC ---
Today's Communication/Plan
-
F/u AM urology staple/drain removal
continue IVF
monitor diet tolerance
DC planning
Assessment / Plan
Assessment / Plan
CT A/P:
Postsurgical changes, as described.
No anterior abdominal wall focal fluid collection or abscess. No residual or recurrent hernia identified.
Nonspecific small bowel gas pattern, with hazy soft tissue attenuation of the peritoneum and small bowel mesentery. This could reflect dysmotility/ileus, or possibly underlying enteritis. No definitive evidence to suggest small bowel obstruction.
Clinical correlation recommended.
Diverticulosis without acute diverticulitis.
Minor cholelithiasis. No CT evidence of acute cholecystitis.
Possible cystitis. Clinical correlation recommended.
Right lateral pelvic masslike soft tissue attenuation. Possibly postsurgical in nature. Cannot exclude adenopathy in the proper clinical setting.
Assessment:
Nausea and vomiting likely post-op ileus
- s/p 08/15/25 R nephro-uterectomy and ureteral resection as well as additional/partial bladder resection. Urology following and plan for staple and drain (x2) removal at bedside tomorrow AM. OP f/u [facility] Dr. Hutson.
- no obstruction on CT
- afebrile, minimal leukocytosis that is stable and likely not reflective of infection
- Surgery following; conservative management.
- diet: LRD and patient advised to go slow
- Pain control. D/w patient to minimize narcotics and use Tylenol. avoid NSAIDs with BRANDEN
- bowel regimen
BRANDEN
- Cr was 3.0 post-op, 3.2 on admission, now 2.6 after IVFs
- cont IVFs
Hyponatremia, mild
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
Obesity due to excess calories
DVT ppx: SC heparin
Code: Full
Anticipated Discharge: 24 - 48 hours
Subjective/Interval History
-
Date of Service: September 03, 2025
tolerating clears (no nausea/vomiting), + flatus, loose BMs reported
reports incisional pains and will agree to PO Tylenol
Objective Data
-
Labs:
Laboratory Results
09/03/25
08:14
WBC 13.4 H
Hgb 9.2 L
Hct 27.0 L
Plt Count 291 D
Sodium 131 L
Potassium 4.8
Chloride 101
Carbon Dioxide 21 L
BUN 23 H
Creatinine 2.6 H
Glucose 98
Calcium 8.8
Vital Signs:
Vital Signs
Temp Pulse Resp BP Pulse Ox
97.9 F 77 18 138/69 92
09/03/25 07:00 09/03/25 07:58 09/03/25 07:00 09/03/25 07:58 09/03/25 07:00
I&O
09/02/25 09/03/25 09/04/25
06:59 06:59 06:59
Intake Total 490 / 490 2224 / 2224
Output Total 95 / 95 135 / 135
Balance 395 / 395 2089
Physical Exam
-
General: No Apparent Distress
HEENT: Normocephalic and Atraumatic
Respiratory: Negative Wheezes
Cardiac: Regular Rhythm and S1/S2
GI: Soft and Other (2x drains in place)
Genito-urinary: No Costovertebral Tender
Neuro: AO x 3
Psych: Calm
Data Reviewed
-
Total Time Spent with Patient (in minutes): 42
Labs: Labs Reviewed by me
[2025-09-03] MEDS: TYLENOL 1000 MG PO ×2 (16:05→22:24)
--- NOTE | 2025-09-03 16:23 | PTCARENOTE ---
Assumed care of pt at 1500, VSS, pt reports pain at 7/10 abd throughout after ambulation. Pt medicated with dilaudid 0.5 mg IV. Will monitor.
--- NOTE | 2025-09-03 17:51 | PTCARENOTE ---
Pt to be transferred to 2105, report called to HIPOLITO Chaves.
[2025-09-03 18:30] VITALS: BP 128/81
[2025-09-03 23:06] VITALS: BP 114/53
[2025-09-04] MEDS: LR 1000 IV ×3 (02:16→19:34)
[2025-09-04] MEDS: TYLENOL 1000 MG PO ×2 (04:40→17:12)
[2025-09-04 07:00] VITALS: BP 122/72
[2025-09-04 07:20] LABS: Hematocrit 26.8 % (39.0-52.0); Hemoglobin 9.0 g/dL (13.0-18.0); Mean Corp Hgb Conc. 33.6 g/dL (33.0-37.0); Mean Corpuscular Volume 95.0 fL (80.0-94.0); Platelet Count 288 10^3/uL (130-400); Red Cell Dist. Width 14.5 % (11.5-14.5)
[2025-09-04] MEDS: HEPARIN 5000 UNITS SC ×3 (07:42→23:25)
[2025-09-04] MEDS: CARDIZEM CD 240 MG PO (07:42)
[2025-09-04] MEDS: LEXAPRO 10 MG PO (07:42)
[2025-09-04] MEDS: LIPITOR 40 MG PO (07:42)
[2025-09-04 08:17] LABS: Blood Urea Nitrogen 22 mg/dl (9-20); Calcium 8.5 mg/dl (8.4-10.2); Carbon Dioxide 21 mmol/L (22-30); Chloride 102 mmol/L (98-107); Estimated Creatinine Clearance 37 ml/min; Glucose 90 mg/dl (70-99); Potassium 5.1 mmol/L (3.5-5.1); Sodium 131 mmol/L (135-145); eGFR 27.47
--- NOTE | 2025-09-04 09:49 | W.PN.UPDATE ---
Update Note
Progress Note Update
Midline abdominal incision blayne removed at bedside.
LLQ and RLQ EDISON drains (x2) removed at bedside w/ dressing applied.
Patient's urologist @[facility] [facility] (Dr. Sibley) made aware of patient's post-surgical care w/ re: drain/wound care.
- Advise Nephrology consult for GRISELDA in setting of solitary kidney post-op (and if need for home IVF)
- Bowel regimen and diet per Hospitalist
D/w patient and spouse.
--- NOTE | 2025-09-04 10:24 | VATNOTE ---
left arm infiltrate resolved. No edema noted at this time.
--- NOTE | 2025-09-04 10:41 | VATNOTE ---
Large Infiltrate in volar aspect of right forearm from LR noted on routine rounds. IV access discontinued. Primary RN notified. Was going to place an IV access in rt. median cephalic AC where I felt a good vein but pts. refused to allow me
to attempt placement anywhere near 'the bend in his arm'. Did attempt x1 in left lower forearm without success. informs me 'they usually have to use an ultrasound machine' and requested I call for the ultrasound machine.
--- NOTE | 2025-09-04 10:54 | VATNOTE ---
Right arm wrapped in warm blanket for infiltrate.
--- NOTE | 2025-09-04 11:18 | CM ---
Addendum entered by Irma He 09/04/25 13:43:
Physician has ordered home care and patient and family have selected [facility], [facility] liaison contacted.
Original Note:
assistant guest services manager reviewed patient's chart and met with patient and patient's spouse at bedside, patient ambulating using a walker to bathroom by himself, per spouse patient may need IV fluids at discharge, will follow. May need VN, it will depend on
infusion needs.
Plan; Home with spouse when stable.
[2025-09-04] MEDS: TYLENOL PO ×2 (11:50→23:12)
[2025-09-04] MEDS: REGLAN 10 MG IV (11:51)
[2025-09-04] MEDS: DILAUDID 0.5 MG IV ×3 (11:52→22:34)
--- NOTE | 2025-09-04 13:18 | W.PN.HOSP.TC ---
Today's Communication/Plan
-
continue IVF
pain control
DC planning in 24 hours
Assessment / Plan
Assessment / Plan
CT A/P:
Postsurgical changes, as described.
No anterior abdominal wall focal fluid collection or abscess. No residual or recurrent hernia identified.
Nonspecific small bowel gas pattern, with hazy soft tissue attenuation of the peritoneum and small bowel mesentery. This could reflect dysmotility/ileus, or possibly underlying enteritis. No definitive evidence to suggest small bowel obstruction.
Clinical correlation recommended.
Diverticulosis without acute diverticulitis.
Minor cholelithiasis. No CT evidence of acute cholecystitis.
Possible cystitis. Clinical correlation recommended.
Right lateral pelvic masslike soft tissue attenuation. Possibly postsurgical in nature. Cannot exclude adenopathy in the proper clinical setting.
Assessment:
Nausea and vomiting likely post-op ileus
- s/p 08/15/25 R nephro-uterectomy and ureteral resection as well as additional/partial bladder resection. Urology removed blayne and drain (x2) 09/04/25. OP f/u with [facility] Dr. Hutson.
- no obstruction on CT
- afebrile, minimal leukocytosis that is stable and likely not reflective of infection
- Surgery following; conservative management.
- diet: LRD and patient advised to go slow
- Pain control. D/w patient to minimize narcotics and use Tylenol. avoid NSAIDs with BRANDEN.
- bowel regimen
BRANDEN
- Cr was 3.0 post-op, 3.2 on admission, now 2.4 after IVFs
- cont IVFs
- OP f/u with his oncologist/[facility] for IVF outpatient
Hyponatremia, mild
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
Obesity due to excess calories
DVT ppx: SC heparin
Code: Full
Anticipated Discharge: Within 24 hours
Subjective/Interval History
-
Date of Service: September 04, 2025
reports no nausea/vomiting with oral intake, intake <50% at present
blayne and drains removed at bedside
Objective Data
-
Labs:
Laboratory Results
09/04/25
06:15
WBC 11.5 H
Hgb 9.0 L
Hct 26.8 L
Plt Count 288
Sodium 131 L
Potassium 5.1
Chloride 102
Carbon Dioxide 21 L
BUN 22 H
Creatinine 2.5 H
Glucose 90
Calcium 8.5
Vital Signs:
Vital Signs
Temp Pulse Resp BP Pulse Ox
98 F 77 16 122/72 97
09/04/25 07:00 09/04/25 07:42 09/04/25 07:00 09/04/25 07:42 09/04/25 07:00
I&O
09/03/25 09/04/25 09/05/25
06:59 06:59 06:59
Intake Total 2225 / 2225 3930 / 4410 480 / 480
Output Total 135 / 135 230 / 230
Balance 2089 / 2089 3700 / 4180 480 / 480
Physical Exam
-
General: No Apparent Distress
HEENT: Normocephalic and Atraumatic
Respiratory: Negative Wheezes
Cardiac: Regular Rhythm and S1/S2
GI: Soft
Genito-urinary: No Costovertebral Tender
Neuro: AO x 3
Psych: Calm
Data Reviewed
-
Total Time Spent with Patient (in minutes): 41
Labs: Labs Reviewed by me
--- NOTE | 2025-09-04 14:28 | VNURNOTE ---
Home Health Liaison met with patient at bedside to discuss [facility] nurse/therapy, visits, schedule and homebound status. Patient is agreeable and understands that visits at home will be 2-3 x per week to assess and teach medical management.
Patient is aware that [facility] will contact them for start of care within a week after discharge from . Provided contact number for [facility].
[facility] referral completed in [facility].
[2025-09-04 15:00] VITALS: BP 128/74
[2025-09-04 23:00] VITALS: BP 112/63
[2025-09-05] MEDS: DILAUDID 0.5 MG IV (03:09)
[2025-09-05] MEDS: REGLAN 10 MG IV (03:21)
[2025-09-05] MEDS: TYLENOL 1000 MG PO ×2 (05:34→12:26)
[2025-09-05] MEDS: LR 1000 IV (05:39)
[2025-09-05 07:10] VITALS: BP 118/56
[2025-09-05 07:31] LABS: Hematocrit 27.5 % (39.0-52.0); Hemoglobin 9.2 g/dL (13.0-18.0); Mean Corp Hgb Conc. 33.5 g/dL (33.0-37.0); Mean Corpuscular Volume 93.5 fL (80.0-94.0); Platelet Count 315 10^3/uL (130-400); Red Cell Dist. Width 14.6 % (11.5-14.5)
[2025-09-05 08:02] LABS: Blood Urea Nitrogen 20 mg/dl (9-20); Calcium 8.4 mg/dl (8.4-10.2); Carbon Dioxide 20 mmol/L (22-30); Chloride 102 mmol/L (98-107); Estimated Creatinine Clearance 39 ml/min; Glucose 98 mg/dl (70-99); Potassium 4.6 mmol/L (3.5-5.1); Sodium 131 mmol/L (135-145); eGFR 28.85
[2025-09-05] MEDS: LEXAPRO 10 MG PO (08:52)
[2025-09-05] MEDS: LIPITOR 40 MG PO (08:52)
[2025-09-05] MEDS: CARDIZEM CD 240 MG PO (08:52)
[2025-09-05] MEDS: HEPARIN 5000 UNITS SC (08:52)
--- NOTE | 2025-09-05 09:33 | CM ---
Chart reviewed and plan is to home with spouse and [facility]
Plan; Home with spouse and [facility].
--- NOTE | 2025-09-05 12:49 | W.PN.HOSP.TC ---
Today's Communication/Plan
-
dc home VN
repeat labs in 1 week
Assessment / Plan
Assessment / Plan
CT A/P:
Postsurgical changes, as described.
No anterior abdominal wall focal fluid collection or abscess. No residual or recurrent hernia identified.
Nonspecific small bowel gas pattern, with hazy soft tissue attenuation of the peritoneum and small bowel mesentery. This could reflect dysmotility/ileus, or possibly underlying enteritis. No definitive evidence to suggest small bowel obstruction.
Clinical correlation recommended.
Diverticulosis without acute diverticulitis.
Minor cholelithiasis. No CT evidence of acute cholecystitis.
Possible cystitis. Clinical correlation recommended.
Right lateral pelvic masslike soft tissue attenuation. Possibly postsurgical in nature. Cannot exclude adenopathy in the proper clinical setting.
Assessment:
Nausea and vomiting likely post-op ileus
- s/p 08/15/25 R nephro-uterectomy and ureteral resection as well as additional/partial bladder resection. Urology removed blayne and drain (x2) 09/04/25. OP f/u with [facility] Dr. Hutson.
- no obstruction on CT
- afebrile, minimal leukocytosis that is stable and likely not reflective of infection
- Surgery following; conservative management.
- diet: LRD and patient advised to go slow
- Pain control. D/w patient to minimize narcotics and use Tylenol. avoid NSAIDs with BRANDEN.
- bowel regimen
BRANDEN
- Cr was 3.0 post-op, 3.2 on admission, now 2.4 after IVFs
- received IVF while in hospital
- OP f/u with his oncologist/[facility] for potential IVF outpatient
Hyponatremia, mild
Chronic Afib: not on AC [employer]ER, cont Cardizem
Obesity due to excess calories
DVT ppx: SC heparin
Code: Full
More than 30 minutes spent in discharge including
Final examination of the patient
Summarizing hospital stay
Instructions for continuing care to all relevant caregivers
Preparation of discharge records, prescriptions, and referral forms
Total time spent (in minutes): 41
Anticipated Discharge: Today
Subjective/Interval History
-
Date of Service: September 05, 2025
pain controlled mostly with Tylenol
ambulating, comfortably
Objective Data
-
Labs:
Laboratory Results
09/05/25
06:38
WBC 11.8 H
Hgb 9.2 L
Hct 27.5 L
Plt Count 315
Sodium 131 L
Potassium 4.6
Chloride 102
Carbon Dioxide 20 L
BUN 20
Creatinine 2.4 H
Glucose 98
Calcium 8.4
Vital Signs:
Vital Signs
Temp Pulse Resp BP Pulse Ox
99 F 83 16 118/56 96
09/05/25 07:10 09/05/25 07:10 09/05/25 07:10 09/05/25 07:10 09/05/25 07:10
I&O
09/04/25 09/05/25 09/06/25
06:59 06:59 06:59
Intake Total 3930 / 4410 2700 / 2700
Output Total 230 / 230
Balance 3700 / 4180 2700 / 2700
Physical Exam
-
General: No Apparent Distress
HEENT: Normocephalic
Respiratory: Negative Wheezes
Cardiac: Regular Rhythm and S1/S2
GI: Soft
Musculoskeletal: No Edema
Neuro: AO x 3
Psych: Calm
Data Reviewed
-
Total Time Spent with Patient (in minutes): 41
Labs: Labs Reviewed by me
--- NOTE | 2025-09-05 12:52 | W.DCSUMMARY ---
Discharge Summary
Discharge Data
Date of Admission: 09/03/25
Date of Discharge: 09/05/25
-
Pending Results: No
Hospital Course
69 y/o M, hx of atrial fibrillation on anticoagulation, history of bladder cancer status post TURBT, more recent diagnosis of nephrolithiasis and right kidney mass known to be kidney cancer status post right nephrectomy, removal of right ureter and
part of bladder on August 15 who presents to the emergency department for ongoing nausea and vomiting and diarrhea. Patients CT imaging did not reveal obstruction but was more concerning for post-operative ileus. Surgery and Urology were
consulted.
Surgery conservatively managed patients symptoms with pain control, IVF and gradual diet advancements which patient tolerated well up to a low residue diet.
Urology evaluated and discussed the case with Patients [facility] team; patients existing drains and blayne were removed. Patient will follow up with [facility] next week.
Patients pain was controlled with scheduled Tylenol and limited doses of narcotics. He was discharged with Tramadol prn as well.
Patient was discharged home 09/05/25 with VN support.
He will obtain weekly labs for next 4 weeks with results to [facility].
Discharge Plan
-
Patient Disposition: Home (Routine Discharge)
Discharge Diagnosis/Procedures: post-op ileus - conservatively managed. 08/15/25 R nephro-uterectomy and ureteral resection as well as additional/partial bladder resection with staple removal and drain removal x 2.
Condition: Fair
Diet: Low Residue
Activity: As tolerated
Blood Work: weekly CBC and BMP - slip given. Results to [facility] team
Other Services: VN
Activity Restrictions/Additional Instructions:
Ok to shower
Can use gauze and tape on the EDISON drain sites and change as needed
Instructions: Low-fiber diet
Referrals:
Sandra Sibley MD [Non-Admitting Privileges]
Prosper Werner MD [Non-Admitting [facility]ileges, Urology]
Selwyn Arenas, DO [[facility], Internal Medicine]
Prescriptions:
New
acetaminophen [Tylenol Extra Strength] 500 mg Tablet
1,000 mg PO Q6H Qty: 100 0RF
tramadol 50 mg tablet
50 mg PO [id number] PRN (Reason: Pain) Qty: 30 0RF
(DME) basic metabolic panel
See Rx Instructions .ROUTE .MEDSUPPLY Qty: 1 0RF
Rx Instructions:
obtain weekly x [address] [facility].
(DME) complete blood count
See Rx Instructions .ROUTE .MEDSUPPLY Qty: 1 0RF
Rx Instructions:
Obtain weekly x [address] [facility].
Continued
escitalopram oxalate 10 mg Tablet
10 mg PO DAILY
atorvastatin 40 mg Tablet
40 mg PO DAILY
ascorbic acid (vitamin C) [Vitamin C] 500 mg Tablet
500 mg PO DAILY
Rx Instructions:
HOLD
08/31 Pt states he has not taken medications in 'months'
cholecalciferol (vitamin D3) [Vitamin D3] 25 mcg (1,000 unit) Tablet
25 mcg PO DAILY
Rx Instructions:
HOLD
08/31 Pt states he has not taken medications in 'months'
loratadine [Allerclear] 10 mg Tablet
10 mg PO DAILY
Rx Instructions:
HOLD
aspirin 81 mg Tablet,Delayed Release (Dr/Ec)
81 mg PO DAILY
Rx Instructions:
HOLD
08/31 Pt states he has not taken medications in 'months'
diltiazem HCl 240 mg Capsule,Extended Release 24hr
240 mg PO DAILY Qty: 30 0RF
polyethylene glycol 3350 [Miralax] 17 gram/dose powder
4 g PO DAILY PRN (Reason: constipation )
magnesium
PO BID
ondansetron [Zofran ODT] 4 mg Tablet,Disintegrating
4 mg PO Q8H PRN (Reason: nausea)
Gas-X
PO PRN (Reason: gas)
Discontinued
potassium citrate 10 mEq (1,080 mg) Tablet Extended Release
10 meq PO BID
Rx Instructions:
HOLD
08/31 Pt states his doctor dc'd his Vitamins
acetaminophen 500 mg Tablet
1,000 mg PO DAILYPRN PRN (Reason: mild pain)
tamsulosin 0.4 mg Capsule
0.4 mg PO DAILY Qty: 30 0RF
Rx Instructions:
HOLD
08/31 Pt stated his MD dc'd medication
Discharge Orders:
Discharge Patient (As Directed); Ordered 09/05/25
Ordered By: Justo Puentes
Discharge Date and Time
Print Language: YI
[2025-09-05 13:00] VITALS: BP 122/78
--- NOTE | 2025-09-07 14:53 | CM ---
plastic surgery manager received a call from from [facility], patient is current.
Plan Home with [facility].
== END 2025-09-05 13:35 | disposition home health service (06) | DRG 394 ==
LOC: 2 SOUTH 08:50
PROVIDERS: Emergency Medicine; Internal Medicine; Nurse Practitioner; ADMITTING PHYSICIAN Internal Medicine; ATTENDING PHYSICIAN Internal Medicine; CONSULT PHYSICIAN Surgery; EMERGENCY PHYSICIAN Emergency Medicine; FAMILY PHYSICIAN Internal Medicine
DX: K91.89 Other postprocedural complications and disorders of digestive system (principal); E87.1 Hypo-osmolality and hyponatremia; K56.7 Ileus, unspecified; N17.9 Acute kidney failure, unspecified; Z87.442 Personal history of urinary calculi; I48.91 Unspecified atrial fibrillation; Z79.01 Long term (current) use of anticoagulants; Z90.5 Acquired absence of kidney; Z85.528 Personal history of other malignant neoplasm of kidney; Z85.51 Personal history of malignant neoplasm of bladder; Z68.37 Body mass index [BMI] 37.0-37.9, adult; E66.09 Other obesity due to excess calories; F41.9 Anxiety disorder, unspecified; I25.10 Atherosclerotic heart disease of native coronary artery without angina pectoris; E78.00 Pure hypercholesterolemia, unspecified; Z79.82 Long term (current) use of aspirin; Z85.54 Personal history of malignant neoplasm of ureter; Z85.820 Personal history of malignant melanoma of skin; Z90.49 Acquired absence of other specified parts of digestive tract; Z92.21 Personal history of antineoplastic chemotherapy; I10 Essential (primary) hypertension; M50.30 Other cervical disc degeneration, unspecified cervical region; Z96.653 Presence of artificial knee joint, bilateral; Z98.1 Arthrodesis status; Z79.899 Other long term (current) drug therapy
CPT/HCPCS: 74022; 74176; 80048; 80053; 81003; 81015; 83605; 83690; 83735; 85025; 85027; 87040; 87502; 87811; 93971; 96361; 96374; 96375; 97162; 99284